=== PATIENT | male | born 1965 | race African-American/Black ===

== ENCOUNTER 2017-05-07 21:05 | Emergency (ER) | payer OTHER ==
[~2017-05-07] VITALS: Ht 167.6 cm; Wt 90.5 kg
[~2017-05-07 21:05] MED LIST: ALBU6.7H INH; DOXA4TAB3 PO; GABA300C5 PO; LANTUS2P SQ; METF500 PO; METO25TA3 PO; MULT1TAB84 PO; NOVORP2 SQ; OMEP20TA PO; PROM25TA5 PO; ZYRT10CA PO
[2017-05-07 21:10] VITALS: BP 142/82; PULSE 91; RESP 20; TEMP 98.5; O2SAT 100
--- NOTE | 2017-05-07 21:17 | PD ---
HPI Chief Complaint: cough, shortness of breath Time Seen by Provider: 21:13 Travel History International Travel<30 days: No Contact w/Intl Traveler<30days: No Traveled to known affect area: No History of Present Illness HPI This 51-year-old male says he been coughing off and on since yesterday. He has a history of allergic asthma. He also has a history of coronary artery disease and has had 5 bypasses done in the past. He said that since yesterday he felt well. While he was at [employer] yesterday he had an episode normal but slightly out of breath. This resolved on its own. Today he was feeling short of breath and was using his inhaler. PFSH Past Medical History Arthritis: Yes Asthma: Yes Autoimmune Disease: No Blood Disorders: No Anxiety: No Depression: No Heart Rhythm Problems: Yes (DIAG 1WK AGO W/BBB LT) Cancer: No Cardiac Catheterization: Yes Cardiovascular Problems: Yes (5 VESSELS CABG 2012) High Cholesterol: Yes Chemotherapy: No Chest Pain: Yes Congestive Heart Failure: No COPD: No Cerebrovascular Accident: No Coronary Artery Disease: Yes Diabetes: Yes (METFORMIN ) Diminished Hearing: No Endocrine: Yes Gastrointestinal Disorders: Yes (GERD) GERD: Yes Genitourinary: Yes (PROSTATE) Headaches: Yes Hepatitis: No Hiatal Hernia: No Heparin Induced Thrombocytopen: No Hypertension: Yes Immune Disorder: No Implanted Vascular Access Dvce: No Kidney Stones: No Musculoskeletal: No Neurologic: No Psychiatric: No Reproductive: No Respiratory: Yes (ASTHMA) Immunizations Current: Yes Migraines: No Myocardial Infarction: No Radiation Therapy: No Renal Failure: No Sickle Cell Disease: No Sleep Apnea: No Thyroid Disease: No Ulcer: Yes PNEUMOCCOCAL Vaccine (Year): 3 Past Surgical History Abdominal Surgery: No AICD: No Cardiac Surgery: Yes (BYPASS - APRIL 05, 2013) Coronary Artery Bypass Graft: Yes (X5 2012) Ear Surgery: No Endocrine Surgery: No Eye Surgery: No Genitourinary Surgery: Yes (PROSTATE PROBLEMS) Gynecologic Surgery: No Insulin Pump: No Joint Replacement: No Neurologic Surgery: No Oral Surgery: No ( ) Pacemaker: No Thoracic Surgery: No Other Surgery: Yes (bypass, prostate) Social History Alcohol Use: No Tobacco Use: No Substance Use: No Allergies-Medications (Allergen,Severity, Reaction): Coded Allergies: Dust (Verified Allergy, Mild, ITCH, SNEEZE, 6/22/17) Grass (Verified Allergy, Mild, ITCH, SNEEZE, 05/07/17) Reported Meds & Prescriptions Reported Meds & Active Scripts Active Omeprazole 20 Mg Tab 20 Mg PO DAILY Reported Cetirizine (Cetirizine HCl) 10 Mg Tab 10 Mg PO DAILY Glipizide 10 Mg Tab 10 Mg PO BIDAC Take 30 minutes before a meal Symbicort Inh (Budesonide/Formoterol Fumarate) 80-4.5 Mcg/Act Aero 1 Puff INH Q12HR Proventil Hfa 6.7 GM Inh (Albuterol Sulfate) 90 Mcg/Act Aer 2 Puff INH Q4H PRN Gabapentin 300 Mg Cap 300 Mg PO TID Doxazosin (Doxazosin Mesylate) 4 Mg Tab 4 Mg PO HS Lantus Inj (Insulin Glargine) 1,000 Unit/10 Ml Vial 30 Units SQ HS Metoprolol Tartrate 25 Mg Tab 25 Mg PO BID Review of Systems General / Constitutional: Positive: Fever Eyes: No: Diploplia, Blurred Vision HENT: No: Headaches, Vertigo Cardiovascular: No: Chest Pain or Discomfort, Palpitations Respiratory: Positive: Cough, Shortness of Breath Gastrointestinal: No: Vomiting Skin: No Rash, No Itching Neurologic: Positive: Weakness, No: Dizziness Endocrine: No: Cold Intolerance Hematologic/Lymphatic: No: Easy Bruising Physical Exam Narrative GENERAL: Well-developed male SKIN: Focused skin assessment warm/dry. HEAD: Atraumatic. Normocephalic. EYES: Pupils equal and round. No scleral icterus. No injection or drainage. ENT: No nasal bleeding or discharge. Mucous membranes pink and moist. NECK: Trachea midline. No JVD. CARDIOVASCULAR: Regular rate and rhythm. No murmur appreciated. Median sternotomy scar RESPIRATORY: No accessory muscle use. Clear to auscultation. Breath sounds equal bilaterally. GASTROINTESTINAL: Abdomen soft, non-tender, nondistended. Hepatic and splenic margins not palpable. MUSCULOSKELETAL: No obvious deformities. No clubbing. No cyanosis. No edema. NEUROLOGICAL: Awake and alert. No obvious cranial nerve deficits. Motor grossly within normal limits. Normal speech. PSYCHIATRIC: Appropriate mood and affect; insight and judgment normal. Data Data Last Documented VS Vital Signs Date Time Temp Pulse Resp B/P Pulse Ox O2 Delivery O2 Flow Rate FiO2 05/07/17 21:25 20 100 Room Air 05/07/17 21:10 98.5 91 142/82 Orders Electrocardiogram (05/07/17 21:14) Complete Blood Count With Diff (05/07/17 21:14) Comprehensive Metabolic Panel (05/07/17 21:14) Troponin I (05/07/17 21:14) B-Type Natriuretic Peptide (05/07/17 21:14) Chest, Single Ap (05/07/17 21:14) Labs Laboratory Tests Test 05/07/17 21:45 White Blood Count 6.6 TH/MM3 Red Blood Count 5.63 MIL/MM3 Hemoglobin 12.8 GM/DL Hematocrit 39.6 % Mean Corpuscular Volume 70.3 FL Mean Corpuscular Hemoglobin 22.7 PG Mean Corpuscular Hemoglobin 32.2 % Concent Red Cell Distribution Width 13.9 % Platelet Count 195 TH/MM3 Mean Platelet Volume 8.7 FL Neutrophils (%) (Auto) 56.5 % Lymphocytes (%) (Auto) 28.9 % Monocytes (%) (Auto) 8.7 % Eosinophils (%) (Auto) 2.9 % Basophils (%) (Auto) 3.0 % Neutrophils # (Auto) 3.7 TH/MM3 Lymphocytes # (Auto) 1.9 TH/MM3 Monocytes # (Auto) 0.6 TH/MM3 Eosinophils # (Auto) 0.2 TH/MM3 Basophils # (Auto) 0.2 TH/MM3 CBC Comment AUTO DIFF Sodium Level 141 MEQ/L Potassium Level 3.9 MEQ/L Chloride Level 106 MEQ/L Carbon Dioxide Level 26.1 MEQ/L Anion Gap 9 MEQ/L Blood Urea Nitrogen 17 MG/DL Creatinine 1.10 MG/DL Estimat Glomerular Filtration 85 ML/MIN Rate Random Glucose 227 MG/DL Calcium Level 8.3 MG/DL Total Bilirubin 0.4 MG/DL Aspartate Amino Transf 16 U/L (AST/SGOT) Alanine Aminotransferase 27 U/L (ALT/SGPT) Alkaline Phosphatase 68 U/L Troponin I 0.06 NG/ML B-Type Natriuretic Peptide 38 PG/ML Total Protein 7.2 GM/DL Albumin 3.6 GM/DL [facility] Medical Decision Making Medical Screen Exam Complete: Yes Emergency Medical Condition: Yes Medical Record Reviewed: Yes Differential Diagnosis Differential includes asthma, CHF, pneumonia Narrative Course Chest x-ray is negative for pneumonia and congestive failure. His BNP is normal. While in the ER he initially was having a cough but this has resolved. He has not had any honorio wheezing but I suspect his symptoms may be related to his asthma. He is feeling better and is stable for discharge. His troponin is 0.06 which is similar to previous values Diagnosis Primary Impression: Asthma, moderate persistent Scripts Doxazosin 4 Mg Tab4 Mg PO HS 30 Days Prov:Bean Limon MD 05/07/17 Metoprolol Tartrate 25 Mg Tab25 Mg PO BID 30 Days Ref 0 Prov:Bean Limon MD 05/07/17 Disposition: 01 DISCHARGE HOME Condition: Stable Bean Limon MD May 07, 2017 21:17
[2017-05-07] MEDS ORDERED: SYMB80AE INH (21:24)
[2017-05-07] MEDS ORDERED: GLIP10TA6 PO (21:24)
[2017-05-07] MEDS ORDERED: CETI10 PO (21:25)
[2017-05-07 21:51] LABS: AUTOMATED NEUTROPHIL # 3.7 TH/MM3 (1.8-7.7); BASOPHIL # 0.2 TH/MM3 (0-0.2); EOSINOPHIL # 0.2 TH/MM3 (0-0.4); EOSINOPHIL % 2.9 % (0.0-4.0); HEMATOCRIT 39.6 % (39.0-51.0); LYMPH % 28.9 % (9.0-44.0); LYMPHOCYTE # 1.9 TH/MM3 (1.0-4.8); MEAN CELL VOLUME 70.3 FL (80.0-100.0); MEAN CORPUSCULAR HEMOGLOBIN 22.7 PG (27.0-34.0); MEAN CORPUSCULAR HGB CONC 32.2 % (32.0-36.0); MONO % 8.7 % (0.0-8.0); NEUT % 56.5 % (16.0-70.0); PLATELET COUNT 195 TH/MM3 (150-450); RED BLOOD COUNT 5.63 MIL/MM3 (4.50-5.90); RED CELL DISTRIBUTION WIDTH 13.9 % (11.6-17.2); WHITE BLOOD COUNT 6.6 TH/MM3 (4.0-11.0)
--- NOTE | 2017-05-07 21:57 | RADRPT ---
EXAM DATE/TIME: 05/07/2017 21:50 [facility] COMPARISON: CHEST SINGLE AP, September 06, 2016, 15:05. INDICATIONS : Patient is short of breath and has chest pain since Thursday. MEDICAL HISTORY : None. SURGICAL HISTORY : CABG. ENCOUNTER: Initial ACUITY: 2 days PAIN SCORE: 3/10 LOCATION: Bilateral chest FINDINGS: A single view of the chest demonstrates the lungs to be symmetrically aerated without evidence of mas s, infiltrate or effusion. The cardiomediastinal contours are unremarkable. Osseous structures are intact. The patient is status post median sternotomy. CONCLUSION: No acute disease. Drake Burch MD on May 07, 2017 at 21:53 Board Certified Radiologist. This report was verified electronically.
[2017-05-07 22:02] LABS: CHLORIDE 106 MEQ/L (98-107); POTASSIUM 3.9 MEQ/L (3.5-5.1); SODIUM (NA) 141 MEQ/L (136-145)
[2017-05-07 22:06] LABS: ANION GAP 9 MEQ/L (5-15); BICARBONATE 26.1 MEQ/L (21.0-32.0); BLOOD UREA NITROGEN 17 MG/DL (7-18)
[2017-05-07 22:09] LABS: ALT (GPT) 27 U/L (12-78); AST (GOT) 16 U/L (15-37); GLOMERULAR FILTRATION RATE 85 ML/MIN (>89)
[2017-05-07 22:11] LABS: HEMO FLAGS AUTO DIFF; TOTAL BILIRUBIN ADULT 0.4 MG/DL (0.2-1.0)
[2017-05-07 22:12] LABS: ALKALINE PHOSPHATASE 68 U/L (45-117)
[2017-05-07] MEDS ORDERED: METO25TA3 PO (22:29)
[2017-05-07] MEDS ORDERED: DOXA4TAB3 PO (22:29)
[2017-05-07 22:32] LABS: OVALOCYTES 1+ (NORMAL); SCAN/DIFF AUTO DIFF CONFIRMED
[2017-05-07 22:40] VITALS: BP 147/72
--- NOTE | 2017-05-08 16:48 | EKG ---
Date Performed: 05/07/2017 Time Performed: 21:35:15 PTAGE: 51 years EKG: Sinus rhythm RIGHT BUNDLE BRANCH BLOCK ABNORMAL ECG PREVIOUS TRACING : 10/24/2016 22.31 Compared to prior tracing no significant change DOCTOR: Aracely Gasca Interpretating Date/Time 05/08/2017 16:46:29
== END 2017-05-07 22:44 | disposition home or self-care (01) ==
LOC: PHED 21:05
DX: J45.909 Unspecified asthma, uncomplicated (principal); I10 Essential (primary) hypertension; E78.00 Pure hypercholesterolemia, unspecified; K21.9 Gastro-esophageal reflux disease without esophagitis; Z95.1 Presence of aortocoronary bypass graft; J45.998 Other asthma
CPT/HCPCS: 71010; 80053; 83880; 84484; 85025; 93005; 99285

== ENCOUNTER 2017-09-27 03:17 | Emergency (ER) | payer OTHER ==
[~2017-09-27] VITALS: Ht 167.6 cm; Wt 88.0 kg
[~2017-09-27 03:17] MED LIST changes: +CETI10 PO; +GLIP10TA6 PO; -METF500 PO; -MULT1TAB84 PO; -NOVORP2 SQ; -OMEP20TA PO; +OMEP20TA93 PO; -PROM25TA5 PO; +SYMB80AE INH; -ZYRT10CA PO
[2017-09-27 03:19] VITALS: BP 134/81; PULSE 85; RESP 16; TEMP 98; O2SAT 100
[2017-09-27] MEDS ORDERED: SODIUM CHLORIDE 0.9% FLUSH 10 ML FLUSH IVF PRN (04:00)
[2017-09-27] MEDS ORDERED: ASPIRIN 81 MG CHEW TAB PO ONE (04:00)
--- NOTE | 2017-09-27 04:19 | PD ---
HPI Chief Complaint: Pain: Acute or Chronic Time Seen by Provider: 03:31 Travel History International Travel<30 days: No Contact w/Intl Traveler<30days: No Traveled to known affect area: No History of Present Illness HPI The 52-year-old man who presents to the emergency department complaining of some right sided abdominal pain that radiates up into the chest. Abdominal pains been going on for couple days. Chest pains been up and down for the past couple hours. No aggravating or alleviating factors. He says gallbladder out previously. He does have a history of GERD, he takes omeprazole twice a day. No shortness of breath. No other symptoms. He was seen multiple times last year for chest pain, had a stress test done in August of last year, exercise treadmill test, that was unremarkable. His a history of CABG in 2012. History Past Medical History Narrative Medical CAD, history of CABG 2012 Asthma Diabetes and hyperlipidemia Hypertension BPH GERD Neuropathy Tetanus Vaccination: < 5 Years Influenza Vaccination: No PNEUMOCCOCAL Vaccine (Year): 3 Social History Alcohol Use: No Tobacco Use: No Allergies-Medications (Allergen,Severity, Reaction): Coded Allergies: grass pollen (Unverified Allergy, Mild, ITCH, SNEEZE, 06/30/17) house dust (Unverified Allergy, Mild, ITCH, SNEEZE, 06/30/17) Reported Meds & Prescriptions Reported Meds & Active Scripts Active Doxazosin (Doxazosin Mesylate) 4 Mg Tab 4 Mg PO HS 30 Days Metoprolol Tartrate 25 Mg Tab 25 Mg PO BID 30 Days Omeprazole 20 Mg Tab 20 Mg PO DAILY Reported Cetirizine (Cetirizine HCl) 10 Mg Tab 10 Mg PO DAILY Glipizide 10 Mg Tab 10 Mg PO BIDAC Take 30 minutes before a meal Symbicort Inh (Budesonide/Formoterol Fumarate) 80-4.5 Mcg/Act Aero 1 Puff INH Q12HR Proventil Hfa 6.7 GM Inh (Albuterol Sulfate) 90 Mcg/Act Aer 2 Puff INH Q4H PRN Gabapentin 300 Mg Cap 300 Mg PO TID Lantus Inj (Insulin Glargine) 1,000 Unit/10 Ml Vial 30 Units SQ HS Review of Systems Except as stated in HPI: all other systems reviewed are Neg Physical Exam Narrative GENERAL: Well-appearing 52-year-old man, no acute distress. SKIN: Focused skin assessment warm/dry. HEAD: Atraumatic. Normocephalic. EYES: Pupils equal and round. No scleral icterus. No injection or drainage. ENT: No nasal bleeding or discharge. Mucous membranes pink and moist. NECK: Trachea midline. No JVD. CARDIOVASCULAR: Regular rate and rhythm. No murmur appreciated. RESPIRATORY: No accessory muscle use. Clear to auscultation. Breath sounds equal bilaterally. GASTROINTESTINAL: Abdomen soft, non-tender, nondistended. Hepatic and splenic margins not palpable. MUSCULOSKELETAL: No obvious deformities. No clubbing. No cyanosis. No edema. NEUROLOGICAL: Awake and alert. No obvious cranial nerve deficits. Motor grossly within normal limits. Normal speech. PSYCHIATRIC: Appropriate mood and affect; insight and judgment normal. Data Data Last Documented VS Vital Signs Date Time Temp Pulse Resp B/P (MAP) Pulse Ox O2 Delivery O2 Flow Rate FiO2 09/27/17 05:57 100 Room Air 09/27/17 05:56 74 18 137/67 (90) 09/27/17 03:19 98.0 Orders Orders Electrocardiogram (09/27/17 03:49) Complete Blood Count With Diff (09/27/17 03:49) Comprehensive Metabolic Panel (09/27/17 03:49) Magnesium (Mg) (09/27/17 03:49) Troponin I (09/27/17 03:49) Lipase (09/27/17 03:49) Chest, Single Ap (09/27/17 03:49) Ecg Monitoring (09/27/17 03:49) Iv Access Insert/Monitor (09/27/17 03:49) Oximetry (09/27/17 03:49) Oxygen Administration (09/27/17 03:49) Aspirin Chew (Aspirin Chew) (09/27/17 04:00) Sodium Chloride 0.9% Flush (Ns Flush) (09/27/17 04:00) Troponin I (09/27/17 05:28) Labs Laboratory Tests Test 09/27/17 03:55 09/27/17 05:55 White Blood Count 5.1 TH/MM3 Red Blood Count 5.90 MIL/MM3 Hemoglobin 13.8 GM/DL Hematocrit 42.9 % Mean Corpuscular Volume 72.8 FL Mean Corpuscular Hemoglobin 23.3 PG Mean Corpuscular Hemoglobin Concent 32.1 % Red Cell Distribution Width 15.4 % Platelet Count 182 TH/MM3 Mean Platelet Volume 9.0 FL Neutrophils (%) (Auto) 48.0 % Lymphocytes (%) (Auto) 38.7 % Monocytes (%) (Auto) 9.5 % Eosinophils (%) (Auto) 3.4 % Basophils (%) (Auto) 0.4 % Neutrophils # (Auto) 2.4 TH/MM3 Lymphocytes # (Auto) 2.0 TH/MM3 Monocytes # (Auto) 0.5 TH/MM3 Eosinophils # (Auto) 0.2 TH/MM3 Basophils # (Auto) 0.0 TH/MM3 CBC Comment DIFF FINAL Differential Comment Blood Urea Nitrogen 16 MG/DL Creatinine 1.11 MG/DL Random Glucose 378 MG/DL Total Protein 7.2 GM/DL Albumin 3.6 GM/DL Calcium Level 8.5 MG/DL Magnesium Level 2.0 MG/DL Alkaline Phosphatase 115 U/L Aspartate Amino Transf (AST/SGOT) 34 U/L Alanine Aminotransferase (ALT/SGPT) 34 U/L Total Bilirubin 0.4 MG/DL Sodium Level 136 MEQ/L Potassium Level 4.6 MEQ/L Chloride Level 101 MEQ/L Carbon Dioxide Level 26.2 MEQ/L Anion Gap 9 MEQ/L Estimat Glomerular Filtration Rate 84 ML/MIN Troponin I 0.05 NG/ML 0.05 NG/ML Lipase 90 U/L MDM Medical Decision Making Medical Screen Exam Complete: Yes Emergency Medical Condition: Yes Interpretation(s) My review of EKG: Normal sinus rhythm at a rate of 75, normal axis, right bundle branch block, no definite evidence of acute ischemia. LABS: CBC unremarkable. CMP remarkable for mildly elevated glucose Troponin negative 2 Lipase normal Differential Diagnosis ACS, gastritis, reflux, pancreatitis, other Narrative Course Medical decision making 52-year-old man, history of CAD, with abdominal and chest pain, benign exam, history is only minimally worrisome for heart problems. More likely gastritis or reflux. CT has a lot of trouble with this. Nonetheless with this history we 'll check 2 sets of enzymes, EKG, x-ray, close outpatient follow-up. Diagnosis Primary Impression: Atypical chest pain Additional Instructions: Continue omeprazole as prescribed. Follow-up with your primary doctor in the next 2-4 days. Return to the emergency department any worsening chest pain, trouble breathing, or any other new or worsening symptoms. Med/Other Pt SpecificInfo: Prescription(s) given Disposition: 01 DISCHARGE HOME Condition: Stable Quang Gutierrez MD Sep 27, 2017 04:19
[2017-09-27 04:26] LABS: AUTOMATED NEUTROPHIL # 2.4 TH/MM3 (1.8-7.7); BASOPHIL % 0.4 % (0.0-2.0); EOSINOPHIL # 0.2 TH/MM3 (0-0.4); EOSINOPHIL % 3.4 % (0.0-4.0); HEMATOCRIT 42.9 % (39.0-51.0); HEMO FLAGS DIFF FINAL; LYMPH % 38.7 % (9.0-44.0); MEAN CELL VOLUME 72.8 FL (80.0-100.0); MEAN CORPUSCULAR HEMOGLOBIN 23.3 PG (27.0-34.0); MEAN CORPUSCULAR HGB CONC 32.1 % (32.0-36.0); MONO % 9.5 % (0.0-8.0); PLATELET COUNT 182 TH/MM3 (150-450); RED CELL DISTRIBUTION WIDTH 15.4 % (11.6-17.2); WHITE BLOOD COUNT 5.1 TH/MM3 (4.0-11.0)
--- NOTE | 2017-09-27 04:33 | RADRPT ---
EXAM DATE/TIME: 09/27/2017 04:04 [facility] COMPARISON: CHEST SINGLE AP, May 07, 2017, 21:50. INDICATIONS : Chest pain. MEDICAL HISTORY : Diabetes mellitus type II. Gastroesophageal reflux disease. Asthma. SURGICAL HISTORY : CABG. Cholecystectomy. ENCOUNTER: Initial ACUITY: 1 day PAIN SCORE: 6/10 LOCATION: Left chest FINDINGS: The cardiac silhouette is normal in transverse diameter. Median sternotomy wires are present. The tonie gs are free of acute parenchymal opacity. No effusions are identified. CONCLUSION: 1. No acute cardiopulmonary disease. Darrick Whiteside MD on September 27, 2017 at 4:31 Board Certified Radiologist. This report was verified electronically.
[2017-09-27 04:36] LABS: ALKALINE PHOSPHATASE 115 U/L (45-117); ALT (GPT) 34 U/L (12-78); TOTAL BILIRUBIN ADULT 0.4 MG/DL (0.2-1.0)
[2017-09-27 04:38] LABS: ANION GAP 9 MEQ/L (5-15); AST (GOT) 34 U/L (15-37); BICARBONATE 26.2 MEQ/L (21.0-32.0); BLOOD UREA NITROGEN 16 MG/DL (7-18); CHLORIDE 101 MEQ/L (98-107); GLOMERULAR FILTRATION RATE 84 ML/MIN (>89); SODIUM (NA) 136 MEQ/L (136-145)
[2017-09-27 04:43] LABS: POTASSIUM 4.6 MEQ/L (3.5-5.1)
[2017-09-27 05:56] VITALS: BP 137/67; PULSE 74; RESP 18; O2SAT 100
--- NOTE | 2017-09-27 12:59 | EKG ---
Date Performed: 09/27/2017 Time Performed: 03:45:01 PTAGE: 52 years EKG: Sinus rhythm RIGHT BUNDLE BRANCH BLOCK ABNORMAL ECG PREVIOUS TRACING 05/07/17 Since previous tracing, no significant change. DOCTOR: Boy Garrett Interpretating Date/Time 09/27/2017 12:57:02
== END 2017-09-27 06:59 | disposition home or self-care (01) ==
LOC: NEPE 03:17
DX: R07.89 Other chest pain (principal); R94.31 Abnormal electrocardiogram [ECG] [EKG]; E78.5 Hyperlipidemia, unspecified; E11.9 Type 2 diabetes mellitus without complications; Z79.4 Long term (current) use of insulin
CPT/HCPCS: 71010; 80053; 83690; 83735; 84484; 85025; 93005

== ENCOUNTER 2018-03-20 00:13 | Emergency (ER) | payer OTHER ==
[2018-03-20] VITALS (9 sets, daily range): BP systolic 125–152; BP diastolic 69–87; PULSE 61–79; RESP 14–18; TEMP 97.6–98.1; O2SAT 97–99
[~2018-03-20] VITALS: Ht 167.6 cm; Wt 87.6 kg
--- NOTE | 2018-03-20 00:41 | PD ---
HPI Chief Complaint: accidental overdose Time Seen by Provider: 00:35 Travel History International Travel<30 days: No Contact w/Intl Traveler<30days: No Traveled to known affect area: No History of Present Illness HPI 52-year-old male with history of erectile dysfunction and diabetes presents to the emergency department for accidental medication injection. Patient thought he was injecting his evening dose of insulin but instead injected 0.4 cc of papaverine phentolamine 30mg/1mg/1 ml into the subcutaneous tissue of the abdominal wall. Patient states initially he noticed that there was discomfort upon injection with a burning sensation which he states he does not experience when he is injecting his insulin and then subsequently felt queasy like he was nauseated which has resolved and now notes some abdominal wall discomfort that he rates 5/10 in intensity. Patient denies any near syncope or syncope, denies chest pain palpitations or tachycardia, denies shortness of breath, denies referred neck jaw back shoulder arm pain. Did not take his evening insulin after accidental injection. Blood sugar in triage 161. Patient is unable to identify exacerbating or alleviating factors. Patient did call his pharmacist who called poison control and was encouraged to come to the emergency room for evaluation. Patient has history of diabetes diabetic neuropathy erectile dysfunction CAD with prior CABG and hypertension. FOR[facility]LY [facility], [facility] Past Medical History Narrative Medical Anxiety asthma bundle branch block dyslipidemia chest pain CAD CABG diabetes hypertension erectile dysfunction cholecystectomy; no tobacco use; nursing notes reviewed Arthritis: Yes Asthma: Yes Autoimmune Disease: No Blood Disorders: No Anxiety: No Depression: No Heart Rhythm Problems: Yes (DIAG 1WK AGO W/BBB LT) Cancer: No Cardiac Catheterization: Yes Cardiovascular Problems: Yes (5 VESSELS CABG 2012) High Cholesterol: Yes Chemotherapy: No Chest Pain: Yes Congestive Heart Failure: No COPD: No Cerebrovascular Accident: No Coronary Artery Disease: Yes Diabetes: Yes Diminished Hearing: No Endocrine: Yes Gastrointestinal Disorders: Yes (GERD) GERD: Yes Genitourinary: Yes (PROSTATE) Headaches: Yes Hepatitis: No Hiatal Hernia: No Heparin Induced Thrombocytopen: No Hypertension: Yes Immune Disorder: No Implanted Vascular Access Dvce: No Kidney Stones: No Musculoskeletal: No Neurologic: No Psychiatric: No Reproductive: No Respiratory: Yes (ASTHMA) Immunizations Current: Yes Migraines: No Myocardial Infarction: No Radiation Therapy: No Renal Failure: No Sickle Cell Disease: No Sleep Apnea: No Thyroid Disease: No Ulcer: Yes PNEUMOCCOCAL Vaccine (Year): 3 Past Surgical History Abdominal Surgery: No AICD: No Cardiac Surgery: Yes (BYPASS - APRIL 05, 2013) Cholecystectomy: Yes Coronary Artery Bypass Graft: Yes (X5 2012) Ear Surgery: No Endocrine Surgery: No Eye Surgery: No Genitourinary Surgery: Yes (PROSTATE PROBLEMS) Gynecologic Surgery: No Insulin Pump: No Joint Replacement: No Neurologic Surgery: No Pacemaker: No Thoracic Surgery: No Other Surgery: Yes (bypass, prostate) Social History Alcohol Use: No Tobacco Use: No Substance Use: No Allergies-Medications (Allergen,Severity, Reaction): Coded Allergies: grass pollen (Unverified Allergy, Mild, ITCH, SNEEZE, 06/30/17) house dust (Unverified Allergy, Mild, ITCH, SNEEZE, 06/30/17) Reported Meds & Prescriptions Reported Meds & Active Scripts Active Doxazosin (Doxazosin Mesylate) 4 Mg Tab 4 Mg PO HS 30 Days Reported Lantus Inj (Insulin Glargine) 1,000 Unit/10 Ml Vial 40 Units SQ HS Omeprazole 20 Mg Tab 20 Mg PO BID Glipizide 10 Mg Tab 10 Mg PO DAILY Take 30 minutes before a meal Glipizide 5 Mg Tab 5 Mg PO HS Take 30 minutes before a meal Gabapentin 300 Mg Cap 300 Mg PO HS Papaverine-Phentolamine M 30-1 mg/ml (Papaverine-Phentolamine) 30 Mg-1 Mg/Ml (1 Ml) Mae 0.1 Ml UR PRN Cetirizine (Cetirizine HCl) 10 Mg Tab 10 Mg PO DAILY Symbicort Inh (Budesonide/Formoterol Fumarate) 80-4.5 Mcg/Act Aero 1 Puff INH Q12HR Proventil Hfa 6.7 GM Inh (Albuterol Sulfate) 90 Mcg/Act Aer 2 Puff INH Q4H PRN Review of Systems Except as stated in HPI: all other systems reviewed are Neg General / Constitutional: No: Fever, Chills HENT: No: Congestion Cardiovascular: No: Chest Pain or Discomfort Respiratory: No: Shortness of Breath Gastrointestinal: Positive: Nausea, Abdominal Pain, No: Vomiting, Diarrhea Genitourinary: No: Dysuria, Flank Pain Musculoskeletal: No: Myalgias, Arthralgias Skin: No Rash Neurologic: No: Weakness Psychiatric: No: Anxiety Hematologic/Lymphatic: No: Lymph Node Enlargement Physical Exam Narrative GENERAL: Well-developed well-nourished male no acute distress no respiratory distress triage vital signs are in normal range no stridor or hoarseness SKIN: Warm and dry. No urticaria no rash HEAD: Normocephalic. EYES: No scleral icterus. No injection or drainage. ENT: Mucous membranes moist airways patent NECK: Supple, trachea midline. No JVD or lymphadenopathy. CARDIOVASCULAR: Regular rate and rhythm without murmurs, gallops, or rubs. RESPIRATORY: Breath sounds equal bilaterally. No accessory muscle use. GASTROINTESTINAL: Abdomen soft, non-tender, nondistended. Soft nontender to palpation no soft tissue swelling ecchymosis induration or erythema MUSCULOSKELETAL: No cyanosis, or edema. BACK: Nontender without obvious deformity. No CVA tenderness. Data Data Last Documented VS Vital Signs Date Time Temp Pulse Resp B/P (MAP) Pulse Ox O2 Delivery O2 Flow Rate FiO2 03/20/18 05:07 61 18 140/87 (104) 97 Room Air 03/20/18 00:15 97.6 Orders Orders Electrocardiogram (03/20/18 00:42) Complete Blood Count With Diff (03/20/18 00:42) Comprehensive Metabolic Panel (03/20/18 00:42) Prothrombin Time / Inr (Pt) (03/20/18 00:42) Act Partial Throm Time (Ptt) (03/20/18 00:42) Blood Glucose (03/20/18 00:42) Iv Access Insert/Monitor (03/20/18 00:42) Ecg Monitoring (03/20/18 00:42) Oximetry (03/20/18 00:42) Sodium Chloride 0.9% Flush (Ns Flush) (03/20/18 00:45) Call Poison Control (03/20/18 00:42) Troponin I (03/20/18 00:42) Troponin I (03/20/18 03:26) Labs Laboratory Tests Test 03/20/18 01:00 03/20/18 03:37 White Blood Count 5.6 TH/MM3 Red Blood Count 5.70 MIL/MM3 Hemoglobin 12.7 GM/DL Hematocrit 40.8 % Mean Corpuscular Volume 71.5 FL Mean Corpuscular Hemoglobin 22.3 PG Mean Corpuscular Hemoglobin Concent 31.1 % Red Cell Distribution Width 14.4 % Platelet Count 247 TH/MM3 Mean Platelet Volume 8.6 FL Neutrophils (%) (Auto) 44.4 % Lymphocytes (%) (Auto) 38.4 % Monocytes (%) (Auto) 12.4 % Eosinophils (%) (Auto) 4.3 % Basophils (%) (Auto) 0.5 % Neutrophils # (Auto) 2.5 TH/MM3 Lymphocytes # (Auto) 2.2 TH/MM3 Monocytes # (Auto) 0.7 TH/MM3 Eosinophils # (Auto) 0.2 TH/MM3 Basophils # (Auto) 0.0 TH/MM3 CBC Comment AUTO DIFF Differential Comment AUTO DIFF CONFIRMED Prothrombin Time 11.4 SEC Prothromb Time International Ratio 1.1 RATIO Activated Partial Thromboplast Time 28.5 SEC Blood Urea Nitrogen 14 MG/DL Creatinine 1.20 MG/DL Random Glucose 192 MG/DL Total Protein 6.8 GM/DL Albumin 3.3 GM/DL Calcium Level 8.4 MG/DL Alkaline Phosphatase 89 U/L Aspartate Amino Transf (AST/SGOT) 17 U/L Alanine Aminotransferase (ALT/SGPT) 37 U/L Total Bilirubin 0.2 MG/DL Sodium Level 140 MEQ/L Potassium Level 3.9 MEQ/L Chloride Level 108 MEQ/L Carbon Dioxide Level 26.3 MEQ/L Anion Gap 6 MEQ/L Estimat Glomerular Filtration Rate 76 ML/MIN Troponin I 0.04 NG/ML 0.04 NG/ML MDM Medical Decision Making Medical Screen Exam Complete: Yes Emergency Medical Condition: Yes Medical Record Reviewed: Yes Interpretation(s) EKG normal sinus rhythm rate 72 right bundle branch block no acute injury or ectopy noted; history of right bundle branch block Differential Diagnosis accidental overdose, arrhythmia Narrative Course Patient placed on production team manager with continuous pulse oximetry; IV access obtained; glucose 161. Poison control notified --- recommend 6 hours of observation for symptomatic intervention as needed @430 patient resting comfortably GCS 15 denies any discomfort complaints or pain ; aware will be observed for another 2 hours At 6:30 AM patient resting comfortably GCS remains 15 continues to deny any discomfort no nausea no vomiting no abdominal pain no chest pain no shortness of breath no flank pain patient's vital signs have remained stable; lab values are grossly normal range; EKG is sinus rhythm with right bundle branch block that has been noted previously. Patient is stable for outpatient management encouraged not to use his papaverine-phentolamine. Diagnosis Primary Impression: Accidental overdose Referrals: Primary Care Physician 2 days Patient Instructions: Narcotic given in the ED, General Instructions Additional Instructions: Increase fluid hydration Do not use this medication papaverine-phentolamine Follow-up with your primary care provider Monitor blood sugars closely Return to emergency department for any concerns or change in condition Med/Other Pt SpecificInfo: Prescription(s) given Disposition: 01 DISCHARGE HOME Collette Bhagat MD March 20, 2018 00:41
[2018-03-20] MEDS ORDERED: GABA300C5 PO (00:42)
[2018-03-20] MEDS ORDERED: OMEP20TA93 PO (00:42)
[2018-03-20] MEDS ORDERED: GLIP10TA6 PO (00:42)
[2018-03-20] MEDS ORDERED: LANTUS2P SQ (00:42)
[2018-03-20] MEDS ORDERED: [UNRECOGNIZED DRUG - CODE] UR (00:42)
[2018-03-20] MEDS ORDERED: GLIP5TAB8 PO (00:42)
[2018-03-20] MEDS ORDERED: SODIUM CHLORIDE 0.9% FLUSH 10 ML FLUSH IVF PRN (00:45)
[2018-03-20 01:21] LABS: AUTOMATED NEUTROPHIL # 2.5 TH/MM3 (1.8-7.7); BASOPHIL % 0.5 % (0.0-2.0); EOSINOPHIL # 0.2 TH/MM3 (0-0.4); EOSINOPHIL % 4.3 % (0.0-4.0); HEMATOCRIT 40.8 % (39.0-51.0); HEMOGLOBIN 12.7 GM/DL (13.0-17.0); LYMPH % 38.4 % (9.0-44.0); LYMPHOCYTE # 2.2 TH/MM3 (1.0-4.8); MEAN CELL VOLUME 71.5 FL (80.0-100.0); MEAN CORPUSCULAR HEMOGLOBIN 22.3 PG (27.0-34.0); MEAN CORPUSCULAR HGB CONC 31.1 % (32.0-36.0); MEAN PLATELET VOLUME 8.6 FL (7.0-11.0); MONO % 12.4 % (0.0-8.0); MONOCYTE # 0.7 TH/MM3 (0-0.9); NEUT % 44.4 % (16.0-70.0); PLATELET COUNT 247 TH/MM3 (150-450); RED CELL DISTRIBUTION WIDTH 14.4 % (11.6-17.2); WHITE BLOOD COUNT 5.6 TH/MM3 (4.0-11.0)
[2018-03-20 01:32] LABS: CHLORIDE 108 MEQ/L (98-107); SODIUM (NA) 140 MEQ/L (136-145)
[2018-03-20 01:35] LABS: ALBUMIN 3.3 GM/DL (3.4-5.0); BICARBONATE 26.3 MEQ/L (21.0-32.0); BLOOD UREA NITROGEN 14 MG/DL (7-18); CALCIUM 8.4 MG/DL (8.5-10.1); GLUCOSE,RANDOM 192 MG/DL (74-106)
[2018-03-20 01:38] LABS: ALT (GPT) 37 U/L (12-78); AST (GOT) 17 U/L (15-37); GLOMERULAR FILTRATION RATE 76 ML/MIN (>89)
[2018-03-20 01:40] LABS: TOTAL BILIRUBIN ADULT 0.2 MG/DL (0.2-1.0); TOTAL PROTEIN 6.8 GM/DL (6.4-8.2)
[2018-03-20 01:41] LABS: ALKALINE PHOSPHATASE 89 U/L (45-117)
[2018-03-20 01:43] LABS: TROPONIN I 0.04 NG/ML (0.02-0.05)
[2018-03-20 04:24] LABS: INTERNATIONAL NORMALIZED RATIO 1.1 RATIO; PROTHROMBIN TIME - PATIENT 11.4 SEC (9.8-11.6)
--- NOTE | 2018-03-20 13:52 | EKG ---
Date Performed: 03/20/2018 Time Performed: 01:06:36 PTAGE: 52 years EKG: Sinus rhythm RIGHT BUNDLE BRANCH BLOCK ABNORMAL ECG PREVIOUS TRACING : 09/27/2017 03.45 Since the previous tracing, no significant change noted DOCTOR: Jaxson Palomino Interpretating Date/Time 03/20/2018 13:51:03
== END 2018-03-20 07:01 | disposition home or self-care (01) ==
LOC: PHED 00:13
DX: T44.3X1A Poisoning by other parasympatholytics [anticholinergics and antimuscarinics] and spasmolytics, accidental (unintentional), initial encounter (principal); E11.40 Type 2 diabetes mellitus with diabetic neuropathy, unspecified; N52.9 Male erectile dysfunction, unspecified; R94.31 Abnormal electrocardiogram [ECG] [EKG]; E78.5 Hyperlipidemia, unspecified; I10 Essential (primary) hypertension; F41.9 Anxiety disorder, unspecified; J45.909 Unspecified asthma, uncomplicated; I25.10 Atherosclerotic heart disease of native coronary artery without angina pectoris
CPT/HCPCS: 80053; 84484; 85025; 85610; 85730; 93005

== ENCOUNTER 2018-04-16 19:52 | Emergency (ER) | payer OTHER ==
[~2018-04-16] VITALS: Ht 167.6 cm; Wt 86.3 kg
[~2018-04-16 19:52] MED LIST changes: +GLIP5TAB8 PO; -METO25TA3 PO; +[UNRECOGNIZED DRUG - CODE] UR
[2018-04-16 19:55] VITALS: BP 153/67; PULSE 90; RESP 18; TEMP 98.7; O2SAT 96
--- NOTE | 2018-04-16 20:57 | PD ---
HPI Chief Complaint: Skin Problem Time Seen by Provider: 20:34 Travel History International Travel<30 days: No Contact w/Intl Traveler<30days: No Traveled to known affect area: No History of Present Illness HPI Patient presents to the emergency department complaining of left great toe pain. States that he is a diabetic and hit his first toe on the left foot on a desk. States that it was black underneath the toenail and part of the toenail subsequently came off. Complaining of intermittent sharp left, first toe pain. States that he had bilateral lower extremity edema that resolved 2 days ago. He apparently was referred to financial professional for evaluation of his foot but he was not able to get an appointment for another month or so. He denies fever, chills , chest pain, vomiting, but reports nausea. Also reports some shortness of breath secondary to his asthma that has resolved with his inhaler use. Also complaining of numbness and tingling in his left toe. Is also reporting chronic , intermittent lower abdominal pain 2 years. Also reports diffuse lower back pain which she describes as "kidney pain" which resolved 3 hours ago. He denies recent trauma but reports an awkward feeling when he urinates but no dysuria. States it "feels funny when he urinates." Also denies increased urinary frequency but states that he feels like he is not able to fully empty his bladder. States that he has been out of his glipizide. PFSH Past Medical History Arthritis: Yes Asthma: Yes Autoimmune Disease: No Blood Disorders: No Anxiety: No Depression: No Heart Rhythm Problems: Yes (DIAG 1WK AGO W/BBB LT) Cancer: No Cardiac Catheterization: Yes Cardiovascular Problems: Yes (CABG) High Cholesterol: Yes Chemotherapy: No Chest Pain: Yes Congestive Heart Failure: No COPD: No Cerebrovascular Accident: No Coronary Artery Disease: Yes Diabetes: Yes (metformin) Diminished Hearing: No Endocrine: Yes Gastrointestinal Disorders: Yes (GERD) GERD: Yes Genitourinary: Yes (PROSTATE, ERECTILE DYS.) Headaches: Yes Hepatitis: No Hiatal Hernia: No Heparin Induced Thrombocytopen: No Hypertension: Yes Immune Disorder: No Implanted Vascular Access Dvce: No Kidney Stones: No Musculoskeletal: No Neurologic: No Psychiatric: No Reproductive: No Respiratory: Yes (Asthma) Immunizations Current: Yes Migraines: No Myocardial Infarction: No Radiation Therapy: No Renal Failure: No Sickle Cell Disease: No Sleep Apnea: No Thyroid Disease: No Ulcer: Yes PNEUMOCCOCAL Vaccine (Year): 3 Past Surgical History Abdominal Surgery: No AICD: No Cardiac Surgery: Yes (BYPASS - APRIL 05, 2013) Cholecystectomy: Yes Coronary Artery Bypass Graft: Yes (X2012) Ear Surgery: No Endocrine Surgery: No Eye Surgery: No Genitourinary Surgery: Yes (PROSTATE PROBLEMS) Gynecologic Surgery: No Insulin Pump: No Joint Replacement: No Neurologic Surgery: No Pacemaker: No Thoracic Surgery: No Other Surgery: Yes (bypass, prostate) Social History Alcohol Use: Yes (VERY RARE) Tobacco Use: No Substance Use: No Allergies-Medications (Allergen,Severity, Reaction): Coded Allergies: grass pollen (Unverified Allergy, Mild, ITCH, SNEEZE, 04/16/18) house dust (Unverified Allergy, Mild, ITCH, SNEEZE, 04/16/18) No Known Allergies (Verified Allergy, Unknown, 04/16/18) Reported Meds & Prescriptions Reported Meds & Active Scripts Active Glipizide 5 Mg Tab 5 Mg PO BIDAC 14 Days Take 10mg in the morning and 5mg at bedtime. Take 30 minutes before a meal Reported Atorvastatin (Atorvastatin Calcium) 20 Mg Tab 20 Mg PO DAILY Lantus Inj (Insulin Glargine) 1,000 Unit/10 Ml Vial 30 Units SQ HS Omeprazole 20 Mg Tab 20 Mg PO BID Glipizide 10 Mg Tab 10 Mg PO DAILY Take 30 minutes before a meal Glipizide 5 Mg Tab 5 Mg PO HS Take 30 minutes before a meal Gabapentin 300 Mg Cap 300 Mg PO HS Papaverine-Phentolamine M 30-1 mg/ml (Papaverine-Phentolamine) 30 Mg-1 Mg/Ml (1 Ml) Mae 0.1 Ml UR PRN Cetirizine (Cetirizine HCl) 10 Mg Tab 10 Mg PO DAILY Symbicort Inh (Budesonide/Formoterol Fumarate) 80-4.5 Mcg/Act Aero 1 Puff INH Q12HR Proventil Hfa 6.7 GM Inh (Albuterol Sulfate) 90 Mcg/Act Aer 2 Puff INH Q4H PRN Review of Systems Except as stated in HPI: all other systems reviewed are Neg Physical Exam Narrative GENERAL: No acute distress. SKIN: Focused skin assessment warm/dry. HEAD: Atraumatic. Normocephalic. EYES: Extraocular muscles intact bilaterally.. No scleral icterus. No injection or drainage. ENT: No nasal bleeding or discharge. Mucous membranes pink and moist. NECK: Trachea midline. No JVD. No focal C-spine tenderness. CARDIOVASCULAR: Regular rate and rhythm. No murmur appreciated. RESPIRATORY: No accessory muscle use. Clear to auscultation. Breath sounds equal bilaterally. GASTROINTESTINAL: Abdomen soft, suprapubic tenderness, nondistended. No CVA tenderness. Positive bilateral femoral, DP, PT pulses. MUSCULOSKELETAL: No clubbing. No cyanosis. No edema. No focal T or L-spine tenderness. Left foot: Sensation intact, cap refill less than 3 seconds, foot warm to touch, moves his toes, tenderness to palpation toenail of first toe, mild bruising of first toe NEUROLOGICAL: Awake and alert. No obvious cranial nerve deficits. Motor grossly within normal limits. Normal speech. PSYCHIATRIC: Appropriate mood and affect; insight and judgment normal. Data Data Last Documented VS Vital Signs Date Time Temp Pulse Resp B/P (MAP) Pulse Ox O2 Delivery O2 Flow Rate FiO2 04/16/18 22:00 76 16 135/74 (94) 98 Room Air 04/16/18 19:55 98.7 Orders Orders Complete Blood Count With Diff (04/16/18 20:50) Comprehensive Metabolic Panel (04/16/18 20:50) Foot, Complete ([id number]) (04/16/18 20:50) Urinalysis - C+S If Indicated (04/16/18 20:50) I-Stat Profile (04/16/18 20:50) Urine Culture (04/16/18 21:05) Sodium Chlor 0.9% 1000 Ml Inj (Ns 1000 M (04/16/18 22:45) I-Stat Profile (04/16/18 23:02) Blood Gas Venous (Vbg) (04/16/18 23:22) Labs Laboratory Tests Test 04/16/18 21:05 04/16/18 21:15 04/16/18 23:31 Urine Color YELLOW Urine Turbidity CLEAR Urine pH 5.5 Urine Specific [place] 1.015 Urine Protein NEG mg/dL Urine Glucose (UA) 1000 OR GREATER mg/dL Urine Ketones TRACE mg/dL Urine Occult Blood NEG Urine Nitrite NEG Urine Bilirubin NEG Urine Urobilinogen 0.2 MG/DL Urine Leukocyte Esterase NEG Urine RBC 0-3 /hpf Urine WBC 3-5 /hpf Urine WBC Clumps OCC Urine Squamous Epithelial Cells 0-5 /hpf Urine Bacteria RARE /hpf Urine Mucus FEW /lpf Microscopic Urinalysis Comment CULTURE INDICATED White Blood Count 6.8 TH/MM3 Red Blood Count 5.85 MIL/MM3 Hemoglobin 13.4 GM/DL Bedside Hemoglobin G/DL Hematocrit 42.2 % Bedside Hematocrit % Mean Corpuscular Volume 72.1 FL Mean Corpuscular Hemoglobin 22.8 PG Mean Corpuscular Hemoglobin Concent 31.7 % Red Cell Distribution Width 14.4 % Platelet Count 246 TH/MM3 Mean Platelet Volume 8.9 FL Neutrophils (%) (Auto) 56.4 % Lymphocytes (%) (Auto) 29.1 % Monocytes (%) (Auto) 9.0 % Eosinophils (%) (Auto) 2.3 % Basophils (%) (Auto) 3.2 % Neutrophils # (Auto) 3.8 TH/MM3 Lymphocytes # (Auto) 2.0 TH/MM3 Monocytes # (Auto) 0.6 TH/MM3 Eosinophils # (Auto) 0.2 TH/MM3 Basophils # (Auto) 0.2 TH/MM3 CBC Comment AUTO DIFF Differential Comment AUTO DIFF CONFIRMED Platelet Estimate NORMAL Platelet Morphology Comment NORMAL Bedside Sodium 137 MMOL/L Bedside Potassium 4.2 MMOL/L Bedside Chloride 100 MMOL/L Bedside Blood Urea Nitrogen 15 MG/DL Bedside Creatinine 0.9 MG/DL Bedside Glucose 373 MG/DL Blood Gas Puncture Site PERIPHERAL LINE Blood Gas Patient Temperature 98.6 Venous Blood pH 7.35 Venous Blood Partial Pressure CO2 48 mmHg Venous Blood Partial Pressure O2 42 mmHg Venous Blood HCO3 26 mmol/L Venous Blood Oxygen Saturation 71 % Venous Blood Oxygen Content 12.2 Vol % Venous Blood Base Excess 1.2 mmol/L Oxygen Delivery Device ROOM AIR Blood Gas Inspired Oxygen 21 % [facility] Medical Decision Making Medical Screen Exam Complete: Yes Emergency Medical Condition: Yes Interpretation(s) Labs: Lab system was down during the latter part of patient's visit. No evidence of DKA on available labs. Urine negative for nitrites and leukocyte esterase, but bacteria present. Urine culture pending. Last Impressions Foot X-Ray 04/16/182049 Signed Impressions: CONCLUSION: Negative exam. Differential Diagnosis Foot fracture, foot dislocation, musculoskeletal foot pain, UTI Narrative Course Patient presents to the emergency department complaining of left first toe pain , lower back pain which he describes as kidney pain, shortness of breath consistent with asthma that resolved with inhaler use. Will get a left foot x- ray and check baseline labs. 11:48: Patient blood sugar decreased to 1:49 liter IV fluids. Refill his glipizide as he is out that he takes 10 mg in the morning 5 mg at bedtime. He will also be referred to podiatry for follow-up. Will DC with Keflex 500 mg p.o. twice daily 7 days for symptomatic bacteriuria. Culture pending. Diagnosis Primary Impression: Hyperglycemia Additional Impressions: Toe pain, left Urinary tract infection Qualified Codes: N39.0 - Urinary tract infection, site not specified Referrals: Felipa Vinson DPM Patient Instructions: General Instructions Additional Instructions: 1. Take glipizide as previously prescribed. 2. Followup with Podiatry referral. 3. Followup with PCP in 48-72 hours. 4. Return to the ER for fever, vomiting, shortness of breath, chest pain, color changes in extremities, or for any new/ worrisome/worsening symptoms. Med/Other Pt SpecificInfo: Prescription(s) given Scripts Cephalexin (Keflex) 500 Mg Cap 500 MG PO Q12H for Infection for 7 Days, #14 CAP 0 Refills Prov: Corine Niño MD 04/16/18 Glipizide (Glipizide) 5 Mg Tab 5 MG PO BIDAC for Blood Sugar Management for 14 Days, #60 TAB 0 Refills Take 10mg in the morning and 5mg at bedtime. Take 30 minutes before a meal Prov: Corine Niño MD 04/16/18 Disposition: 01 DISCHARGE HOME Condition: Stable Corine Niño MD Apr 16, 2018 20:57
--- NOTE | 2018-04-16 21:14 | RADRPT ---
EXAM DATE: 04/16/2018 9:05 PM EDT AGE/SEX: 52 years / Male INDICATIONS: Left foot first digit pain. CLINICAL DATA: This is the patient's initial encounter. Patient reports that signs and symptoms have been present for 2 weeks and indicates a pain score of 5/10. MEDICAL/SURGICAL HISTORY: . Diabetes mellitus type II. Gastroesophageal reflux disease. Asthma . CABG. Cholecystectomy COMPARISON: No prior [facility] exams available for comparison. FINDINGS: Bony structures are intact and in normal alignment. Osseous density is normal. Soft tissues are unre markable. No radiopaque foreign bodies seen. CONCLUSION: Negative exam. Electronically signed by: Drake Burch MD 04/16/2018 9:12 PM EDT
[2018-04-16 21:36] LABS: BILIRUBIN, URINE NEG (NEG); BLOOD, URINE NEG (NEG); GLUCOSE,URINE 1000 OR GREATER mg/dL (NEG); KETONE, URINE TRACE mg/dL (NEG); NITRITE,URINE NEG (NEG); PH, URINE 5.5 (5.0-8.5); URINE COLOR YELLOW (YELLW/STRAW); URINE LEUKOCYTE ESTERASE NEG (NEG)
[2018-04-16 21:36] LABS: AUTOMATED NEUTROPHIL # 3.8 TH/MM3 (1.8-7.7); BASOPHIL # 0.2 TH/MM3 (0-0.2); BASOPHIL % 3.2 % (0.0-2.0); EOSINOPHIL # 0.2 TH/MM3 (0-0.4); EOSINOPHIL % 2.3 % (0.0-4.0); HEMATOCRIT 42.2 % (39.0-51.0); HEMOGLOBIN 13.4 GM/DL (13.0-17.0); LYMPH % 29.1 % (9.0-44.0); MEAN CELL VOLUME 72.1 FL (80.0-100.0); MEAN CORPUSCULAR HEMOGLOBIN 22.8 PG (27.0-34.0); MEAN CORPUSCULAR HGB CONC 31.7 % (32.0-36.0); MEAN PLATELET VOLUME 8.9 FL (7.0-11.0); MONOCYTE # 0.6 TH/MM3 (0-0.9); NEUT % 56.4 % (16.0-70.0); PLATELET COUNT 246 TH/MM3 (150-450); RED BLOOD COUNT 5.85 MIL/MM3 (4.50-5.90); RED CELL DISTRIBUTION WIDTH 14.4 % (11.6-17.2); WHITE BLOOD COUNT 6.8 TH/MM3 (4.0-11.0)
[2018-04-16] MEDS ORDERED: ATOR20TA15 PO (21:55)
[2018-04-16] MEDS ORDERED: LANTUS2P SQ (21:55)
[2018-04-16 21:58] LABS: MUCUS URINE FEW /lpf (OCC); WHITE BLOOD CELL CLUMPS OCC
[2018-04-16 21:59] LABS: RBC, URINE 0-3 /hpf (0-3); SQUAMOUS EPITHELIAL CELL URINE 0-5 /hpf (0-5)
[2018-04-16 22:00] VITALS: BP 135/74; PULSE 76; RESP 16; O2SAT 98
[2018-04-16 22:00] LABS: BACTERIA, URINE RARE /hpf
[2018-04-16] MEDS ORDERED: SODIUM CHLOR 0.9% 1000 ML INJ 1,000 ML IV ONE (22:45)
[2018-04-16] MEDS ORDERED: GLIP5TAB8 PO (23:46)
[2018-04-16] MEDS ORDERED: CEPH-460 PO (23:51)
[2018-04-16 23:57] LABS: ALBUMIN 3.5 GM/DL (3.4-5.0); AST (GOT) 14 U/L (15-37); BICARBONATE 21.3 MEQ/L (21.0-32.0); BLOOD UREA NITROGEN 14 MG/DL (7-18); CALCIUM 9.2 MG/DL (8.5-10.1); CHLORIDE 103 MEQ/L (98-107); CREATININE 1.14 MG/DL (0.60-1.30); GLOMERULAR FILTRATION RATE 81 ML/MIN (>89); GLUCOSE,RANDOM 368 MG/DL (74-106); SODIUM (NA) 137 MEQ/L (136-145)
[2018-04-16 23:58] LABS: ALT (GPT) 29 U/L (12-78)
[2018-04-17] VITALS: BP 145/79; PULSE 76; RESP 16; O2SAT 98
[2018-04-17] LABS: ALKALINE PHOSPHATASE 89 U/L (45-117); TOTAL BILIRUBIN ADULT 0.3 MG/DL (0.2-1.0); TOTAL PROTEIN 7.3 GM/DL (6.4-8.2)
== END 2018-04-17 00:13 | disposition home or self-care (01) ==
LOC: PHED 19:52
DX: E11.65 Type 2 diabetes mellitus with hyperglycemia (principal); M79.675 Pain in left toe(s); N39.0 Urinary tract infection, site not specified; E78.00 Pure hypercholesterolemia, unspecified; I10 Essential (primary) hypertension; I25.10 Atherosclerotic heart disease of native coronary artery without angina pectoris; J45.909 Unspecified asthma, uncomplicated; K21.9 Gastro-esophageal reflux disease without esophagitis; Z95.1 Presence of aortocoronary bypass graft
CPT/HCPCS: 73630; 80053; 81001; 82805; 85025; 87086; 96360; 99284; J7030; 80048

== ENCOUNTER 2018-05-03 19:10 | Inpatient (IN) | payer SELFPAY ==
[~2018-05-03] VITALS: Ht 167.6 cm; Wt 79.3 kg
[~2018-05-03 19:10] MED LIST changes: +ATOR20TA15 PO; +CEPH-460 PO; -DOXA4TAB3 PO
[2018-05-03 19:34] VITALS: BP 131/75; PULSE 84; RESP 16; TEMP 98.6; O2SAT 99
[2018-05-03] MEDS ORDERED: SODIUM CHLORIDE 0.9% FLUSH 10 ML FLUSH IVF PRN (20:15)
[2018-05-03 20:21] LABS: AUTOMATED NEUTROPHIL # 2.9 TH/MM3 (1.8-7.7); BASOPHIL % 0.7 % (0.0-2.0); EOSINOPHIL # 0.2 TH/MM3 (0-0.4); EOSINOPHIL % 3.4 % (0.0-4.0); HEMATOCRIT 40.8 % (39.0-51.0); HEMOGLOBIN 13.4 GM/DL (13.0-17.0); LYMPH % 34.2 % (9.0-44.0); LYMPHOCYTE # 1.9 TH/MM3 (1.0-4.8); MEAN CELL VOLUME 71.2 FL (80.0-100.0); MEAN CORPUSCULAR HEMOGLOBIN 23.4 PG (27.0-34.0); MEAN CORPUSCULAR HGB CONC 32.8 % (32.0-36.0); MEAN PLATELET VOLUME 8.3 FL (7.0-11.0); MONO % 10.6 % (0.0-8.0); MONOCYTE # 0.6 TH/MM3 (0-0.9); NEUT % 51.1 % (16.0-70.0); PLATELET COUNT 187 TH/MM3 (150-450); RED BLOOD COUNT 5.74 MIL/MM3 (4.50-5.90); RED CELL DISTRIBUTION WIDTH 15.4 % (11.6-17.2); WHITE BLOOD COUNT 5.6 TH/MM3 (4.0-11.0)
--- NOTE | 2018-05-03 20:21 | RADRPT ---
EXAM DATE: 05/03/2018 8:18 PM EDT AGE/SEX: 52 years / Male INDICATIONS: Chest pain. CLINICAL DATA: This is the patient's initial encounter. Patient reports that signs and symptoms have been present for 2 days and indicates a pain score of 7/10. MEDICAL/SURGICAL HISTORY: . Diabetes mellitus type II. Gastroesophageal reflux disease. Asthma . CABG. Cholecystectomy COMPARISON: [facility] [place], CHEST SINGLE AP, 09/27/2017. . FINDINGS: A single AP view of the chest demonstrates the lungs to be symmetrically aerated without evidence of mass, infiltrate or effusion. The cardiomediastinal contours are unremarkable. Osseous structures a re intact. CONCLUSION: No active disease. Postoperative median sternotomy. Electronically signed by: Mark Greenberg MD 05/03/2018 8:19 PM EDT
[2018-05-03 20:32] LABS: PROTHROMBIN TIME - PATIENT 10.5 SEC (9.8-11.6)
--- NOTE | 2018-05-03 20:53 | PD ---
HPI Chief Complaint: Chest Pain Time Seen by Provider: 20:04 Travel History International Travel<30 days: No Contact w/Intl Traveler<30days: No Traveled to known affect area: No History of Present Illness HPI Patient is a 52-year-old male presenting to emerge from for evaluation of chest pain. Patient states it started a few days ago. The pain increased in intensity today which is what prompted his presentation. He states it is midsternal with radiation to the left arm, he reports mild shortness of breath, he does state that he gets short of breath with exertion. He denies any diaphoresis, headache. Patient denies previous heart attack but has had a CABG in 2013. He states that he has lower quadrant abdominal pain, this is ongoing for 1 month. He states that his primary doctor gave him medication to take 4 times a day, he is unsure what that medication is. He does state that he is not metoprolol for several weeks. He took 1 baby aspirin this morning. PFSH Past Medical History Arthritis: Yes Asthma: Yes Heart Rhythm Problems: Yes (BBB LT) Cardiac Catheterization: Yes Cardiovascular Problems: Yes (CABG) High Cholesterol: Yes Chest Pain: Yes Coronary Artery Disease: Yes Diabetes: Yes GERD: Yes Genitourinary: Yes (PROSTATE, ERECTILE DYS.) Headaches: Yes Hypertension: Yes Immunizations Current: Yes Ulcer: Yes PNEUMOCCOCAL Vaccine (Year): 3 Past Surgical History Abdominal Surgery: No AICD: No Cardiac Surgery: Yes (BYPASS - APRIL 05, 2013) Cholecystectomy: Yes Coronary Artery Bypass Graft: Yes (X5 2012) Ear Surgery: No Endocrine Surgery: No Eye Surgery: No Genitourinary Surgery: Yes (PROSTATE PROBLEMS) Gynecologic Surgery: No Insulin Pump: No Joint Replacement: No Neurologic Surgery: No Pacemaker: No Thoracic Surgery: No Other Surgery: Yes (bypass, prostate) Social History Alcohol Use: Yes (VERY RARE) Tobacco Use: No Substance Use: No Allergies-Medications (Allergen,Severity, Reaction): Coded Allergies: grass pollen (Unverified Allergy, Mild, ITCH, SNEEZE, 05/03/18) house dust (Unverified Allergy, Mild, ITCH, SNEEZE, 05/03/18) Reported Meds & Prescriptions Reported Meds & Active Scripts Active Keflex (Cephalexin) 500 Mg Cap 500 Mg PO Q12H 7 Days Glipizide 5 Mg Tab 5 Mg PO BIDAC 14 Days Take 10mg in the morning and 5mg at bedtime. Take 30 minutes before a meal Reported Atorvastatin (Atorvastatin Calcium) 20 Mg Tab 20 Mg PO DAILY Lantus Inj (Insulin Glargine) 1,000 Unit/10 Ml Vial 30 Units SQ HS Omeprazole 20 Mg Tab 20 Mg PO BID Glipizide 10 Mg Tab 10 Mg PO DAILY Take 30 minutes before a meal Glipizide 5 Mg Tab 5 Mg PO HS Take 30 minutes before a meal Gabapentin 300 Mg Cap 300 Mg PO HS Papaverine-Phentolamine M 30-1 mg/ml (Papaverine-Phentolamine) 30 Mg-1 Mg/Ml (1 Ml) Mae 0.1 Ml UR PRN Cetirizine (Cetirizine HCl) 10 Mg Tab 10 Mg PO DAILY Symbicort Inh (Budesonide/Formoterol Fumarate) 80-4.5 Mcg/Act Aero 1 Puff INH Q12HR Proventil Hfa 6.7 GM Inh (Albuterol Sulfate) 90 Mcg/Act Aer 2 Puff INH Q4H PRN Review of Systems Except as stated in HPI: all other systems reviewed are Neg Cardiovascular: Positive: Chest Pain or Discomfort, Diaphoresis, Dyspnea on exertion Respiratory: Positive: Shortness of Breath Gastrointestinal: Positive: Nausea, Abdominal Pain, No: Vomiting, Diarrhea Genitourinary: No: Dysuria Neurologic: Positive: Dizziness, No: Weakness, Syncope, Focal Abnormalities Physical Exam Narrative GENERAL: Well-developed, well-nourished, alert -[place] male. Presenting in no acute distress. SKIN: Warm and dry. HEAD: Atraumatic. Normocephalic. EYES: Pupils equal and round. No scleral icterus. No injection or drainage. ENT: No nasal bleeding or discharge. Mucous membranes pink and moist. NECK: Trachea midline. No JVD. CARDIOVASCULAR: Regular rate and rhythm. RESPIRATORY: No accessory muscle use. Clear to auscultation. Breath sounds equal bilaterally. GASTROINTESTINAL: Abdomen soft, mildly tender bilateral lower quadrants, nondistended. Hepatic and splenic margins not palpable. No rebound, no guarding , positive bowel sounds. MUSCULOSKELETAL: Extremities without clubbing, cyanosis, or edema. No obvious deformities. NEUROLOGICAL: Awake and alert. No obvious cranial nerve deficits. Motor grossly within normal limits. Five out of 5 muscle strength in the arms and legs. Normal speech. PSYCHIATRIC: Appropriate mood and affect; insight and judgment normal. Data Data Last Documented VS Vital Signs Date Time Temp Pulse Resp B/P (MAP) Pulse Ox O2 Delivery O2 Flow Rate FiO2 05/03/18 19:34 98.6 84 16 131/75 (93) 99 Orders Orders Electrocardiogram (05/03/18 20:02) Ckmb (Isoenzyme) Profile (05/03/18 20:02) Complete Blood Count With Diff (05/03/18 20:) Comprehensive Metabolic Panel (05/03/18 20:) Magnesium (Mg) (05/03/18 20:) Prothrombin Time / Inr (Pt) (05/03/18:) Act Partial Throm Time (Ptt) (05/03/18:) Troponin I (05/03/18:) Lipase (05/03/18 20:) Chest, Single Ap (05/03/18 20:) Ecg Monitoring (05/03/18 20:) Bilateral Bp Monitoring (05/03/18:) Iv Access Insert/Monitor (05/03/18 20:) Oximetry (05/03/18 20:) Oxygen Administration (05/03/18 20:02) Sodium Chloride 0.9% Flush (Ns Flush) (05/03/18 20:15) Ct Abd/Pel W Iv Contrast(Rout) (05/03/18 ) CKMB (05/03/18 20:00) CKMB% (05/03/18 20:00) Urinalysis - C+S If Indicated (05/03/18 21:18) Admit Order (Ed Use Only) (05/03/18 22:33) Activity Bed Rest With Brp (05/03/18 22:33) Vital Signs (Adult) Q4H (05/03/18 22:33) Cardiac Rhythm .As Directed (05/03/18:33) Notify Dr: Other .PRN (05/03/18:33) Notify Parameters (05/03/18 22:33) Diet Npo (05/04/18 Breakfast) ^ Saline Lock (05/03/18 22:33) Ckmb (Isoenzyme) Profile (05/03/18:33) Ckmb (Isoenzyme) Profile (05/04/18 01:33) Troponin I (05/03/18 22:33) Troponin I (05/04/18 01:33) Electrocardiogram (05/03/18:33) Electrocardiogram (05/04/18:33) ^ Obtain (05/03/18:33) Sodium Chloride 0.9% Flush (Ns Flush) (05/03/18 22:45) Sodium Chloride 0.9% Flush (Ns Flush) (05/04/18 09:00) Acetaminophen (Tylenol) (05/03/18 22:45) Morphine Inj (Morphine Inj) (05/03/18 22:45) Nitroglycerin Sl (Nitrostat Sl) (05/03/18 22:45) Aspirin (Aspirin) (05/04/18 09:00) Temazepam (Restoril) (05/03/18 22:45) Receiving Room Clerk / Telemetry [email or web address] (05/03/18:33) Vte Prophylaxis Not Indicated (05/03/18:) Labs Laboratory Tests Test 05/03/18 20:00 White Blood Count 5.6 TH/MM3 Red Blood Count 5.74 MIL/MM3 Hemoglobin 13.4 GM/DL Hematocrit 40.8 % Mean Corpuscular Volume 71.2 FL Mean Corpuscular Hemoglobin 23.4 PG Mean Corpuscular Hemoglobin Concent 32.8 % Red Cell Distribution Width 15.4 % Platelet Count 187 TH/MM3 Mean Platelet Volume 8.3 FL Neutrophils (%) (Auto) 51.1 % Lymphocytes (%) (Auto) 34.2 % Monocytes (%) (Auto) 10.6 % Eosinophils (%) (Auto) 3.4 % Basophils (%) (Auto) 0.7 % Neutrophils # (Auto) 2.9 TH/MM3 Lymphocytes # (Auto) 1.9 TH/MM3 Monocytes # (Auto) 0.6 TH/MM3 Eosinophils # (Auto) 0.2 TH/MM3 Basophils # (Auto) 0.0 TH/MM3 CBC Comment DIFF FINAL Differential Comment Prothrombin Time 10.5 SEC Prothromb Time International Ratio 1.0 RATIO Activated Partial Thromboplast Time 26.9 SEC Blood Urea Nitrogen 15 MG/DL Creatinine 1.09 MG/DL Random Glucose 228 MG/DL Total Protein 7.4 GM/DL Albumin 3.8 GM/DL Calcium Level 9.0 MG/DL Magnesium Level 1.8 MG/DL Alkaline Phosphatase 104 U/L Aspartate Amino Transf (AST/SGOT) 12 U/L Alanine Aminotransferase (ALT/SGPT) 25 U/L Total Bilirubin 0.3 MG/DL Sodium Level 139 MEQ/L Potassium Level 3.5 MEQ/L Chloride Level 104 MEQ/L Carbon Dioxide Level 24.7 MEQ/L Anion Gap 10 MEQ/L Estimat Glomerular Filtration Rate 85 ML/MIN Total Creatine Kinase 214 U/L Creatine Kinase MB 2.9 NG/ML Troponin I 0.05 NG/ML Lipase 84 U/L [facility] Medical Decision Making Medical Screen Exam Complete: Yes Emergency Medical Condition: Yes Interpretation(s) Last Impressions Chest X-Ray 05/03/182001 Signed Impressions: CONCLUSION: No active disease. Postoperative median sternotomy. Abdomen/Pelvis CT 05/03/18 0000 Signed Impressions: CONCLUSION: 1. No acute findings. Mild constipation. Mild fatty liver. Laboratory Tests Test 05/03/18 20:00 White Blood Count 5.6 TH/MM3 Red Blood Count 5.74 MIL/MM3 Hemoglobin 13.4 GM/DL Hematocrit 40.8 % Mean Corpuscular Volume 71.2 FL Mean Corpuscular Hemoglobin 23.4 PG Mean Corpuscular Hemoglobin Concent 32.8 % Red Cell Distribution Width 15.4 % Platelet Count 187 TH/MM3 Mean Platelet Volume 8.3 FL Neutrophils (%) (Auto) 51.1 % Lymphocytes (%) (Auto) 34.2 % Monocytes (%) (Auto) 10.6 % Eosinophils (%) (Auto) 3.4 % Basophils (%) (Auto) 0.7 % Neutrophils # (Auto) 2.9 TH/MM3 Lymphocytes # (Auto) 1.9 TH/MM3 Monocytes # (Auto) 0.6 TH/MM3 Eosinophils # (Auto) 0.2 TH/MM3 Basophils # (Auto) 0.0 TH/MM3 CBC Comment DIFF FINAL Differential Comment Prothrombin Time 10.5 SEC Prothromb Time International Ratio 1.0 RATIO Activated Partial Thromboplast Time 26.9 SEC Blood Urea Nitrogen 15 MG/DL Creatinine 1.09 MG/DL Random Glucose 228 MG/DL Total Protein 7.4 GM/DL Albumin 3.8 GM/DL Calcium Level 9.0 MG/DL Magnesium Level 1.8 MG/DL Alkaline Phosphatase 104 U/L Aspartate Amino Transf (AST/SGOT) 12 U/L Alanine Aminotransferase (ALT/SGPT) 25 U/L Total Bilirubin 0.3 MG/DL Sodium Level 139 MEQ/L Potassium Level 3.5 MEQ/L Chloride Level 104 MEQ/L Carbon Dioxide Level 24.7 MEQ/L Anion Gap 10 MEQ/L Estimat Glomerular Filtration Rate 85 ML/MIN Total Creatine Kinase 214 U/L Creatine Kinase MB 2.9 NG/ML Troponin I 0.05 NG/ML Lipase 84 U/L Vital Signs Date Time Temp Pulse Resp B/P (MAP) Pulse Ox O2 Delivery O2 Flow Rate FiO2 05/03/18 19:34 98.6 84 16 131/75 (93) 99 Differential Diagnosis ACS versus [place] versus GERD versus diverticulitis versus colitis versus metabolic abnormality versus other Narrative Course Patient is 52-year-old male who presented to emerge from for evaluation of chest pain. Additionally patient had lower abdominal pain. Labs and imaging ordered and pending. Patient's vital signs are stable. Patient was placed on telemetry monitoring continuous pulse oximetry. IV access was established. Chest x-ray shows no acute disease. CT scan of the abdomen and pelvis shows mild constipation. Labs reviewed, no acute findings identified. Cardiac enzymes are negative 1 set. Plan of care was discussed by attending physician. Patient was advised on findings. He was advised that we would like placement in the chest pain center overnight. Patient is agreeable to stay. Admit orders placed. Diagnosis Primary Impression: Chest pain Qualified Codes: R07.9 - Chest pain, unspecified Additional Impression: Constipation Qualified Codes: K59.00 - Constipation, unspecified Admitting Information Admitting Physician Requests: Observation Condition: Stable Binta Ronquillo May 03, 2018 20:53
[2018-05-03 21:12] LABS: ALBUMIN 3.8 GM/DL (3.4-5.0); AST (GOT) 12 U/L (15-37); BICARBONATE 24.7 MEQ/L (21.0-32.0); BLOOD UREA NITROGEN 15 MG/DL (7-18); CHLORIDE 104 MEQ/L (98-107); CREATININE 1.09 MG/DL (0.60-1.30); GLOMERULAR FILTRATION RATE 85 ML/MIN (>89); GLUCOSE,RANDOM 228 MG/DL (74-106); MAGNESIUM 1.8 MG/DL (1.5-2.5); SODIUM (NA) 139 MEQ/L (136-145)
[2018-05-03 21:13] LABS: ALT (GPT) 25 U/L (12-78)
[2018-05-03 21:17] LABS: ALKALINE PHOSPHATASE 104 U/L (45-117); TOTAL BILIRUBIN ADULT 0.3 MG/DL (0.2-1.0); TOTAL PROTEIN 7.4 GM/DL (6.4-8.2); TROPONIN I 0.05 NG/ML (0.02-0.05)
--- NOTE | 2018-05-03 21:18 | PD ---
Physical Exam Narrative I, Dr. Mccarty, have reviewed the advance practice practitioner's documentation and am in agreement, met with the patient face to face, made the diagnosis, and the medical decision making was done by me. *My assessment and Findings: Patient is a 52-year-old male who comes in complaining of chest pain and abdominal pain. Says he has been having these symptoms for a while, but today he was mowing his lawn on the chest pain came on. He says it was worse today than it has been in the past. He also complains of some lower abdominal pain. Exam shows some mild tenderness across the lower abdomen. No rebound or guarding. Data Data Last Documented VS Vital Signs Date Time Temp Pulse Resp B/P (MAP) Pulse Ox O2 Delivery O2 Flow Rate FiO2 05/03/18 19:34 98.6 84 16 131/75 (93) 99 Orders Orders Electrocardiogram (05/03/18 20:02) Ckmb (Isoenzyme) Profile (05/03/18 20:02) Complete Blood Count With Diff (05/03/18 20:02) Comprehensive Metabolic Panel (05/03/18 20:02) Magnesium (Mg) (05/03/18 20:02) Prothrombin Time / Inr (Pt) (05/03/18 20:02) Act Partial Throm Time (Ptt) (05/03/18 20:02) Troponin I (05/03/18 20:02) Lipase (05/03/18 20:02) Chest, Single Ap (05/03/18 20:02) Ecg Monitoring (05/03/18 20:02) Bilateral Bp Monitoring (05/03/18 20:02) Iv Access Insert/Monitor (05/03/18 20:02) Oximetry (05/03/18 20:02) Oxygen Administration (05/03/18 20:02) Sodium Chloride 0.9% Flush (Ns Flush) (05/03/18 20:15) Ct Abd/Pel W Iv Contrast(Rout) (05/03/18 ) CKMB (05/03/18 20:00) CKMB% (05/03/18 20:00) Urinalysis - C+S If Indicated (05/03/18 21:18) Admit Order (Ed Use Only) (05/03/18 22:33) Activity Bed Rest With Brp (05/03/18:33) Vital Signs (Adult) Q4H (05/03/18:33) Cardiac Rhythm .As Directed (05/03/18) Notify Dr: Other .PRN (05/03/18) Notify DrNain Parameters (05/03/18:) Diet Npo (05/04/18 Breakfast) ^ Saline Lock (05/03/18:) Ckmb (Isoenzyme) Profile (05/03/18) Ckmb (Isoenzyme) Profile (05/04/18:33) Troponin I (05/03/18:) Troponin I (05/04/18:33) Electrocardiogram (05/03/18) Electrocardiogram (05/04/18:) ^ Obtain (05/03/18:) Sodium Chloride 0.9% Flush (Ns Flush) (05/03/18 22:45) Sodium Chloride 0.9% Flush (Ns Flush) (05/04/18 09:00) Acetaminophen (Tylenol) (05/03/18 22:45) Morphine Inj (Morphine Inj) (05/03/18 22:45) Nitroglycerin Sl (Nitrostat Sl) (05/03/18 22:45) Aspirin (Aspirin) (05/04/18 09:00) Temazepam (Restoril) (05/03/18 22:45) Speech Communication Professor / Telemetry [email or web address].[email or web address] (05/03/18:33) Vte Prophylaxis Not Indicated (05/03/18:33) CKMB (05/04/18 00:22) CKMB% (05/04/18 00:22) Labs Laboratory Tests Test 05/03/18 20:00 05/03/18 22:30 White Blood Count 5.6 TH/MM3 Red Blood Count 5.74 MIL/MM3 Hemoglobin 13.4 GM/DL Hematocrit 40.8 % Mean Corpuscular Volume 71.2 FL Mean Corpuscular Hemoglobin 23.4 PG Mean Corpuscular Hemoglobin Concent 32.8 % Red Cell Distribution Width 15.4 % Platelet Count 187 TH/MM3 Mean Platelet Volume 8.3 FL Neutrophils (%) (Auto) 51.1 % Lymphocytes (%) (Auto) 34.2 % Monocytes (%) (Auto) 10.6 % Eosinophils (%) (Auto) 3.4 % Basophils (%) (Auto) 0.7 % Neutrophils # (Auto) 2.9 TH/MM3 Lymphocytes # (Auto) 1.9 TH/MM3 Monocytes # (Auto) 0.6 TH/MM3 Eosinophils # (Auto) 0.2 TH/MM3 Basophils # (Auto) 0.0 TH/MM3 CBC Comment DIFF FINAL Differential Comment Prothrombin Time 10.5 SEC Prothromb Time International Ratio 1.0 RATIO Activated Partial Thromboplast Time 26.9 SEC Blood Urea Nitrogen 15 MG/DL Creatinine 1.09 MG/DL Random Glucose 228 MG/DL Total Protein 7.4 GM/DL Albumin 3.8 GM/DL Calcium Level 9.0 MG/DL Magnesium Level 1.8 MG/DL Alkaline Phosphatase 104 U/L Aspartate Amino Transf (AST/SGOT) 12 U/L Alanine Aminotransferase (ALT/SGPT) 25 U/L Total Bilirubin 0.3 MG/DL Sodium Level 139 MEQ/L Potassium Level 3.5 MEQ/L Chloride Level 104 MEQ/L Carbon Dioxide Level 24.7 MEQ/L Anion Gap 10 MEQ/L Estimat Glomerular Filtration Rate 85 ML/MIN Total Creatine Kinase 214 U/L Creatine Kinase MB 2.9 NG/ML Troponin I 0.05 NG/ML Lipase 84 U/L Urine Color Straw Urine Turbidity CLEAR Urine pH 6.0 Urine Specific [place] 1.023 Urine Protein NEG mg/dL Urine Glucose (UA) >=500 mg/dL Urine Ketones TRACE mg/dL Urine Occult Blood NEG Urine Nitrite NEG Urine Bilirubin NEG Urine Urobilinogen LESS THAN 2 mg/dL Urine Leukocyte Esterase NEG Urine RBC LESS THAN 1 /hpf Urine WBC 1 /hpf Microscopic Urinalysis Comment CULT NOT INDICATED [facility] Supervised Visit with [facility]: Yes Narrative Course Labs show no acute abnormalities. Troponin is negative. CT of the abdomen and pelvis performed shows no acute abnormalities. Patient will be placed in chest pain center for further management. Last 24 hours Impressions Chest X-Ray 05/03/182001 Signed Impressions: CONCLUSION: No active disease. Postoperative median sternotomy. Abdomen/Pelvis CT 05/03/18 0000 Signed Impressions: CONCLUSION: 1. No acute findings. Mild constipation. Mild fatty liver. Diagnosis Primary Impression: Chest pain Qualified Codes: R07.9 - Chest pain, unspecified Admitting Information Admitting Physician Requests: Observation Virginia Mccarty MD May 03, 2018 21:18
--- NOTE | 2018-05-03 22:16 | RADRPT ---
EXAM DATE: 05/03/2018 10:10 PM EDT AGE/SEX: 52 years / Male INDICATIONS: Abdomen pain. CLINICAL DATA: This is the patient's initial encounter. Patient reports that signs and symptoms have been present for 1 day and indicates a pain score of 6/10. MEDICAL/SURGICAL HISTORY: Cardiovascular disease. Hypertension. CABG. ORAL CONTRAST: No oral contrast ingested. RADIATION DOSE: 10.99 CTDI (mGy) COMPARISON: [facility], CT ABDOMEN & PELVIS W CONTRAST, 09/05/2016. . TECHNIQUE: Multiple contiguous axial images were obtained through the abdomen and pelvis following b olus infusion of 75 ml Omnipaque 350 (iohexol) nonionic water-soluble contrast as a single exam dos e. No oral contrast ingested. Using automated exposure control and adjustment of the mA and/or kV ac cording to patient size, radiation dose was kept as low as reasonably achievable to obtain optimal di agnostic quality images. DICOM format image data is available electronically for review and comparis on. FINDINGS: Lung bases are clear. No acute findings in the liver, spleen, adrenals, kidneys or pancreas. Postoper ative cholecystectomy. No free fluid. No bowel obstruction. No adenopathy. Mild constipation. CONCLUSION: 1. No acute findings. Mild constipation. Mild fatty liver. Electronically signed by: Mark Greenberg MD 05/03/2018 10:15 PM EDT
[2018-05-03] MEDS ORDERED: IOHEXOL 350 MG/ML 100 ML BTL (for Cath Lab) OTHER ONE (22:37)
[2018-05-03] MEDS ORDERED: IOHEXOL 350 MG/ML 10 ML VIAL (for RAD DIAG) IVCONTRAST ONE (22:37)
[2018-05-03 22:42] LABS: BILIRUBIN, URINE NEG (NEG); BLOOD, URINE NEG (NEG); GLUCOSE,URINE >=500 mg/dL (NEG); KETONE, URINE TRACE mg/dL (NEG); NITRITE,URINE NEG (NEG); URINE COLOR Straw (YELLW/STRAW); URINE LEUKOCYTE ESTERASE NEG (NEG)
[2018-05-03 22:43] VITALS: BP 162/87; PULSE 65; RESP 16; O2SAT 100
[2018-05-03] MEDS ORDERED: SODIUM CHLORIDE 0.9% FLUSH 10 ML FLUSH IV FLUSH PRN (22:45)
[2018-05-03] MEDS ORDERED: MORPHINE SULFATE 4 MG/ML INJ IV PUSH PRN (22:45)
[2018-05-03] MEDS ORDERED: ACETAMINOPHEN 500 MG CPLT PO PRN (22:45)
[2018-05-03] MEDS ORDERED: TEMAZEPAM 15 MG CAP PO PRN (22:45)
[2018-05-03] MEDS ORDERED: NITROGLYCERIN 0.4 MG SL 25 TABS/BTL SL PRN (22:45)
[2018-05-03 23:29] VITALS: BP 178/91; PULSE 67; RESP 16; TEMP 98.5; O2SAT 98
[2018-05-04] VITALS (13 sets, daily range): BP systolic 128–164; BP diastolic 68–81; PULSE 66–96; RESP 16–18; TEMP 97.8–98.8; O2SAT 98–99
[2018-05-04 01:12] LABS: TROPONIN I 0.07 NG/ML (0.02-0.05)
[2018-05-04 02:45] LABS: TROPONIN I 0.06 NG/ML (0.02-0.05)
[2018-05-04] MEDS ORDERED: ASPIRIN 325 MG TAB PO SCH (09:00)
--- NOTE | 2018-05-04 09:16 | HHI.HP ---
[facility] Everton Tello MD Admission Diagnosis CHEST PAIN Diagnoses: Chief Complaint: chest pain/ SOB Travel History International Travel<30 Days: No Contact w/Intl Traveler <30 Da: No Traveled to Known Affected Are: No History of Present Illness 52-year-old black male being admitted for angina. Patient was in his usual state of health until about a few days ago when he says his intermittent somewhat chronic chest pain began to get substantially worse as he was mowing the lawn and was associated with profound shortness of breath which was new to him. Says he had to stop walking multiple times in the midst of his lawnmowing to catch his breath. Says his chest pain was aching in nature and was 6/10 at its worst. Says he took his albuterol inhaler treatment but did not provide him any relief for at least 30 minutes. Patient says he takes aspirin almost daily. But he says that he used to take metoprolol up until about a year or so ago, is not clear as to whether his physician deliberately discontinued him or the patient himself misunderstood and stopped taking it or asking for refills. Patient does have a history of a CABG a few years ago. Patient does say he has chronic heartburn as well as chronic abdominal discomfort/pain. In the emergency department patient had an EKG done which I independently reviewed and shows no clear signs for acute ischemia or infarction but possible right bundle branch block. Troponins eventually did become mildly elevated. Review of Systems Except as stated in HPI: all other systems reviewed are Neg Past Family Social History Past Medical History DM CAD BPH Past Surgical History CABG Allergies: Coded Allergies: grass pollen (Unverified Allergy, Mild, ITCH, SNEEZE, 05/03/18) house dust (Unverified Allergy, Mild, ITCH, SNEEZE, 05/03/18) Family History DM in sister prostate CA in father CABG in mother Social History denies smoking, ETOH. 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 EYES: No scleral icterus. No injection or drainage. ENT: No nasal bleeding or discharge. CARDIOVASCULAR: Regular rate and rhythm. no murmurs RESPIRATORY: No accessory muscle use. Clear to auscultation. Breath sounds equal bilaterally. GASTROINTESTINAL: Abdomen soft, nontender, nondistended Extremities: No clubbing, cyanosis, or edema. No obvious deformities. MUSCULOSKELETAL: adequate muscle bulk and tone for age and habitus NEUROLOGICAL: Awake and alert. No obvious cranial nerve deficits. No facial droop nor slurred speech noted. PSYCHIATRIC: Appropriate mood and affect; insight and judgment normal. Laboratory Laboratory Tests Test 05/03/18 20:00 05/03/18 22:30 05/04/18 00:22 05/04/18 02:11 White Blood Count 5.6 Red Blood Count 5.74 Hemoglobin 13.4 Hematocrit 40.8 Mean Corpuscular Volume 71.2 Mean Corpuscular Hemoglobin 23.4 Mean Corpuscular Hemoglobin Concent 32.8 Red Cell Distribution Width 15.4 Platelet Count 187 Mean Platelet Volume 8.3 Neutrophils (%) (Auto) 51.1 Lymphocytes (%) (Auto) 34.2 Monocytes (%) (Auto) 10.6 Eosinophils (%) (Auto) 3.4 Basophils (%) (Auto) 0.7 Neutrophils # (Auto) 2.9 Lymphocytes # (Auto) 1.9 Monocytes # (Auto) 0.6 Eosinophils # (Auto) 0.2 Basophils # (Auto) 0.0 CBC Comment DIFF FINAL Differential Comment Prothrombin Time 10.5 Prothromb Time International Ratio 1.0 Activated Partial Thromboplast Time 26.9 Blood Urea Nitrogen 15 Creatinine 1.09 Random Glucose 228 Total Protein 7.4 Albumin 3.8 Calcium Level 9.0 Magnesium Level 1.8 Alkaline Phosphatase 104 Aspartate Amino Transf (AST/SGOT) 12 Alanine Aminotransferase (ALT/SGPT) 25 Total Bilirubin 0.3 Sodium Level 139 Potassium Level 3.5 Chloride Level 104 Carbon Dioxide Level 24.7 Anion Gap 10 Estimat Glomerular Filtration Rate 85 Total Creatine Kinase 214 213 215 Creatine Kinase MB 2.9 2.9 Troponin I 0.05 0.07 0.06 Lipase 84 Urine Color Straw Urine Turbidity CLEAR Urine pH 6.0 Urine Specific [place] 1.023 Urine Protein NEG Urine Glucose (UA) >=500 Urine Ketones TRACE Urine Occult Blood NEG Urine Nitrite NEG Urine Bilirubin NEG Urine Urobilinogen LESS THAN 2 Urine Leukocyte Esterase NEG Urine RBC LESS THAN 1 Urine WBC 1 Microscopic Urinalysis Comment CULT NOT INDICATED Result Diagram: 05/03/18199905/03/181999 Imaging Last Impressions Chest X-Ray 05/03/182001 Signed Impressions: CONCLUSION: No active disease. Postoperative median sternotomy. Abdomen/Pelvis CT 05/03/18 0000 Signed Impressions: CONCLUSION: 1. No acute findings. Mild constipation. Mild fatty liver. Caprini VTE Risk Assessment Caprini VTE Risk Assessment: Mod/High Risk (score >= 2) Caprini Risk Assessment Model Point Value = 1 Point Value = 2 Point Value = 3 Point Value = 5 Age 41-60 Minor surgery BMI > 25 kg/m2 Swollen legs Varicose veins or History of unexplained or recurrent spontaneous Oral contraceptives or hormone replacement Sepsis (< 1 month) Serious lung disease, including pneumonia (< 1 month) Abnormal pulmonary function Acute myocardial infarction Congestive heart failure (< 1 month) History of inflammatory bowel disease Medical patient at bed rest Age 61-74 Arthroscopic surgery Major open surgery (> 45 min) Laparoscopic surgery (> 45 min) Malignancy Confined to bed (> 72 hours) Immobilizing plaster cast Central venous access Age >= 75 History of VTE Family history of VTE Factor V Leiden Prothrombin [id number] Lupus anticoagulant Anticardiolipin antibodies Elevated serum homocysteine Heparin-induced thrombocytopenia Other congenital or acquired thrombophilia Stroke (< 1 month) Elective arthroplasty Hip, pelvis, or leg fracture Acute spinal cord injury (< 1 month) Prophylaxis Regimen Total Risk Factor Score Risk Level Prophylaxis Regimen 0-1 Low Early ambulation 2 Moderate Order ONE of the following: *Sequential Compression Device (SCD) *Heparin 5000 units SQ BID 3-4 Higher Order ONE of the following medications: *Heparin 5000 units SQ TID *Enoxaparin/Lovenox 40 mg SQ daily (WT < 150 kg, CrCl > 30 mL/min) *Enoxaparin/Lovenox 30 mg SQ daily (WT < 150 kg, CrCl > 10-29 mL/min) *Enoxaparin/Lovenox 30 mg SQ BID (WT < 150 kg, CrCl > 30 mL/min) AND/OR *Sequential Compression Device (SCD) 5 or more Highest Order ONE of the following medications: *Heparin 5000 units SQ TID (Preferred with Epidurals) *Enoxaparin/Lovenox 40 mg SQ daily (WT < 150 kg, CrCl > 30 mL/min) *Enoxaparin/Lovenox 30 mg SQ daily (WT < 150 kg, CrCl > 10-29 mL/min) *Enoxaparin/Lovenox 30 mg SQ BID (WT < 150 kg, CrCl > 30 mL/min) AND *Sequential Compression Device (SCD) Assessment and Plan Assessment and Plan 52-year-old black male admitted for angina Chest pain -Concerning for an NSTEMI -Continue aspirin, starting Lopressor, starting heparin drip - discussed case with cardiology, plans for cardiac catheterization today -continue home PPI -continue home lipitor DM - LDSS w/ accuchecks Chronic abd pain -possible dyspepsia vs IBS, f/u with PCP outpatient as CMP neg at this time asthma - continue home Tj Yanes MD May 04, 2018 09:16
[2018-05-04] MEDS ORDERED: DEXTROSE 50% IN WATER 50 ML VIAL(D50) IV PUSH PRN (09:30)
[2018-05-04] MEDS ORDERED: METOPROLOL TARTRATE 25 MG TAB PO ONE (09:30)
[2018-05-04] MEDS ORDERED: GLUCAGON 1 MG/ML VIAL OTHER PRN (09:30)
[2018-05-04] MEDS ORDERED: HEPARIN-D5W 25,000 U/250 ML 250 ML IV PRN (09:30)
[2018-05-04] MEDS: SODIUM CHLORIDE 0.9% FLUSH 10 ML FLUSH IV FLUSH SCH ×2 (10:23→21:55)
--- NOTE | 2018-05-04 10:49 | MB ---
cc: Kaushal Singh MD DATE: 05/04/2018 HISTORY OF PRESENT ILLNESS: Mr. Isbell is a 52-year-old black male with a history of 5-vessel coronary artery bypass, who developed substernal and left parasternal chest discomfort when he was mowing his lawn. It was intermittent. The pain was of moderate intensity. He has had similar pains after albuterol inhaler treatments in the past. He denies any shortness of breath, dizziness, lightheadedness, palpitations or peripheral edema. He also complains of chronic abdominal discomfort. PAST MEDICAL HISTORY: Positive for 5 vessel coronary bypass, diabetes mellitus, and BPH. MEDICATIONS: Aspirin. ALLERGIES: NO KNOWN MEDICAL ALLERGIES. SOCIAL HISTORY: The patient does not smoke and does not drink alcohol. He is a realtor and business enterprise officer. FAMILY HISTORY: Positive for heart disease in his mother and diabetes in a sister. REVIEW OF SYSTEMS: Otherwise negative. PHYSICAL EXAMINATION: VITAL SIGNS: Blood pressure 137/81, pulse 66 and regular. HEENT: Negative. NECK: 2+ upstroke. No bruits. LUNGS: Clear. HEART: Regular with no murmur, gallop or rub. ABDOMEN: Soft, no bruit. EXTREMITIES: No edema. 2+ distal pulses. NEUROLOGIC: Grossly nonfocal. LABORATORY DATA: EKG was reviewed and showed a normal sinus rhythm, normal axis, right bundle-branch block and no acute changes. LABORATORY DATA: Hemoglobin 13.4, potassium 3.5, creatinine 1.1. CK 214, 213 and 215. Troponin 0.05, 0.07 and 0.06. ASSESSMENT: 1. Unstable angina. 2. Mildly abnormal troponin. 3. Coronary artery disease with a history of 5 vessel coronary bypass. DISPOSITION: Ms. Isbell will be scheduled for cardiac catheterization and coronary intervention if necessary. He understands the risks and benefits and wishes to proceed. I recommend aggressive modification of his cardiac risk factors. Kaushal Singh MD OQ/DL , 10:21 AM , 10:47 AM [facility]
[2018-05-04 10:52] LABS: HEMATOCRIT 41.5 % (39.0-51.0); HEMOGLOBIN 13.3 GM/DL (13.0-17.0); MEAN CELL VOLUME 70.9 FL (80.0-100.0); MEAN CORPUSCULAR HEMOGLOBIN 22.8 PG (27.0-34.0); MEAN CORPUSCULAR HGB CONC 32.2 % (32.0-36.0); MEAN PLATELET VOLUME 8.3 FL (7.0-11.0); PLATELET COUNT 189 TH/MM3 (150-450); RED BLOOD COUNT 5.85 MIL/MM3 (4.50-5.90); RED CELL DISTRIBUTION WIDTH 15.2 % (11.6-17.2); WHITE BLOOD COUNT 4.7 TH/MM3 (4.0-11.0)
[2018-05-04 11:02] LABS: INTERNATIONAL NORMALIZED RATIO 1.1 RATIO; PROTHROMBIN TIME - PATIENT 11.3 SEC (9.8-11.6)
[2018-05-04] MEDS: INSULIN NovoLIN REGULAR SUPPLEMENTAL SCALE SQ SCH ×3 (12:00→21:57)
[2018-05-04] MEDS ORDERED: MIDAZOLAM HCL 5 MG/5 ML VIAL ONE (13:20)
[2018-05-04] MEDS ORDERED: HEPARIN-NS/PF INJ 1,000 ML ONE (13:20)
[2018-05-04] MEDS ORDERED: NITROGLYCERIN INJ 5 ML ONE (13:21)
[2018-05-04] MEDS ORDERED: HEPARIN SODIUM - IV 10,000 UNITS/10 ML VIAL ONE (13:21)
[2018-05-04] MEDS ORDERED: MIDAZOLAM HCL 2 MG/2 ML VIAL ONE (15:05)
[2018-05-04] MEDS ORDERED: CLOPIDOGREL 300 MG TAB ONE (15:21)
[2018-05-04] MEDS ORDERED: SODIUM CHLOR 0.9% 1000 ML INJ 1,000 ML IV SCH (15:38)
--- NOTE | 2018-05-04 15:43 | CATHPROC ---
[facility]recogn[facility] HIS Report Study Information Study Number Admission Scheduled Start Study Start [id number] May 03 2018 10:36PM 05/04/2018 May 04 2018 12:37PM [place] [facility] Cardiac Catheterization Admit Source Facility Department Emergency department [facility] - Electric Wheelchair Repairer Physician and Clinical Staff Initial Kaushal Sauceda Proposal Director Nellie Hoffman RN Recorder Bethanie Luis BSN Scrub Feli Rosenbaum,RT(R) (BS) Procedures Performed Procedure Location (Site) Vessel Name Angiogram LV LV Ventricle Coronary Angiograms LCA Left Coronary Coronary Angiograms RCA Right Coronary Coronary Angiograms RODRIGUEZ-LAD Left Coronary Coronary Angiograms SVG-OM 1 CIRC Coronary Angiograms SVG-OM 3 CIRC Coronary Angiograms SVG-RCA Right Coronary Coronary Angiograms Gft. Stump 1 SVG Graft L Heart Cath PTCA SVG-RCA Right Coronary Stent SVG-RCA Right Coronary Wire insertion Fem Art (right) Femoral Art Equipment Time Process Development Manager Description Size Mfg Part Number Used/Scraped WIRE, BALANCE MIDDLEWEIGHT [id number] 15:00 [employer] 190CM Used 190CM *[id number] TRANSDUCER, TRUWAVE [id number] 12:42 BURROWS KWON * Used W/STOCKCOCK *[id number] 15:21 CARD[employer]repChamps MEDICAL VASCADE, FR6 CLOSURE SYSTEM FR 6\\7 Used *[id number] *[id number] [id number] *[id number] 534-560T *[id number] 534-572T *[id number] [id number] *[id number] 12:42 Push IO BLANKET,WARM AIR CCL * Used *[id number] 12:42 Push IO PACK, CCL CUSTOM * Used *[id number] 12:42 [employer] PACER PEN, SKIN DUAL W/ RULER * Used *[id number] 15:05 MEDTRONIC BALLOON, 2.0 X 6MM EUPHORA 6MM Used *[id number] 13:39 MEDTRONIC JL 4.0 DXTERITY CATHETER FR 5 Used *[id number] 15:13 MEDTRONIC STENT, 2.25 8 INTEGRITY 2.25 8 Used *[id number] [id number] 15:11 Kicksend 30 CATARINA INDEFLATOR Used *[id number] 14:58 MERIT MEDICAL SHEATH, FR6.5 PRELUDE 11CM FR 6.5 038ACT Used *[id number] 15:00 MERIT [employer] WIRE, 3MMJ .035 180CM 180CM Used *[id number] 14:28 MERIT MEDICAL WIRE, 3MMJ .035 180CM 180CM Used *[id number] [id number] 12:42 MERIT MEDICAL WIRE, 3MMJ .035 180CM 180CM Used *[id number] PROBE COVER, STERILE [id number] 12:42 [employer] MEDICAL * Used ULTRASOUND W/ GEL *[id number] 12:42 NAMIC MANIFOLD, 4 PORT * Used *[id number] 12:42 NAMIC TUBING, HIGH PRESSURE 48" 48" Used *[id number] [id number] 15:02 NAMIC TUBING, HIGH PRESSURE 48" 48" Used *[id number] 15:01 NYCOMED OMNIPAQUE, 350 MG, 150ML 150ML [id number] Used 14:41 NYCOMED OMNIPAQUE, 350 MG, 150ML 150ML [id number] Used 15:09 NYCOMED OMNIPAQUE, 350 MG, 150ML 150ML [id number] Used 12:42 NYCOMED OMNIPAQUE, 350 MG, 150ML 150ML [id number] Used 14:14 NYCOMED OMNIPAQUE, 350 MG, 150ML 150ML [id number] Used 14:14 NYCOMED OMNIPAQUE, 350 MG, 50ML 50ML [id number] Used 14:14 NYCOMED OMNIPAQUE, 350 MG, 50ML 50ML [id number] Used [id number] 12:42 TERUMO MEDICAL SHEATH, FR5 TERUMO (10CM) FR 5 Used *[id number] Equipment Model, Serial, Lot Number and Expiration Data Description Model Number Serial Number Lot Number Expiration Date JL 4.0 DXTERITY CATHETER [id number] 09-01-2020 STENT, 2.25 8 INTEGRITY [id number] 03-12-2019 History: Current Medications Medication Dosage/Unit Route Frequency Last Date/Time Taken Statins (any) ASA 325 mg 05/04/2018 Beta Jenny 12.5 mg 05/04/2018 History: Allergies Allergy Reaction Dust ITCH, SNEEZE Grass ITCH, SNEEZE house dust ITCH, SNEEZE grass pollen ITCH, SNEEZE History: Risk Factors Family History of Hypertension Dyslipidemia Previous NM Previous Heart Failure Premature CAD No No Yes No No Prior Valve Prior PCI Prior CABG Prior CABGDate Surgery No No Yes 04/04/2013 Cerebrovascular Peripheral Artery Chronic Lung On Dialysis Diabetes Diabetes Therapy Disease Disease Disease No No No No Yes Oral History: NM/CV Data Previous CABG Date 04/04/2013 Labs Hgb (g/dl) Hct (%) WBC (l/cumm) Platelets (thousands) 11.60-17.00 35.00-51.00 4.00-11.00 150.00-450.00 13.3 41.5 4.7 189 Glucose (mg/dl) BUN (mg/dl) Creatinine (mg/dl) BUN:Creatinine (1:x) 74.00-106.00 7.00-18.00 0.50-1.30 10.00-20.00 228 15 1.0 15 Na (meq/l) K (meq/l) 136.00-145.00 3.50-5.10 139 3.5 INR (PTT:PT) 0.90-1.10 1.1 Troponin I (ng/ml) CPK (u/l) CPK-MB (ng/ML) 0.02-0.05 26.00-308.00 0.50-3.60 0.06 215 2.9 Medication Medication Total Dose (Bolus/Oral) Medication Total Dosage/Unit 1% XYLOCAINE 20 mL FENTANYL 150 mcg HEPARIN 7000 units NTG (IC) 400 mcg OXYGEN 2 l/min PLAVIX 600 mg VERSED 6 mg Medications (Bolus/Oral) Medication Time Given Dosage/Unit Administered By Reason OXYGEN 05/04/2018 1:23:58 PM 2 l/min Nellie Hoffman 2 l/min OXYGEN given in lab by Nellie Hoffman RN via Nasal. Ordered by Kaushal Singh. VERSED 05/04/2018 1:50:42 PM 2 mg Nellie Hoffman 2 mg VERSED given in lab by Nellie Hoffman RN via Peripheral IV. Ordered by Kaushal Singh. FENTANYL 05/04/2018 1:51:50 PM 50 mcg Nellie Hoffman 50 mcg FENTANYL given in lab by Nellie Hoffman RN via Peripheral IV. Ordered by Kaushal Singh. VERSED 05/04/2018 2:10:57 PM 1 mg Nellie Hoffman 1 mg VERSED given in lab by Nellie Hoffman RN via Peripheral IV. Ordered by Kaushal Singh. FENTANYL 05/04/2018 2:11:08 PM 25 mcg Yasmin, Nellie 25 mcg FENTANYL given in lab by Nellie Hoffman RN via Peripheral IV. Ordered by Kaushal Singh. 1% XYLOCAINE 05/04/2018 2:16:26 PM 20 mL Kaushal Singh 20 mL 1% XYLOCAINE given in lab by Kaushal Singh in Right Groin via Subcutaneous. Ordered by Kaushal Wright. VERSED 05/04/2018 2:57:32 PM 1 mg Nellie Hoffman 1 mg VERSED given in lab by Nellie Hoffman RN via Peripheral IV. Ordered by Kuashal Singh. FENTANYL 05/04/2018 2:58:36 PM 25 mcg Nellie Hoffman 25 mcg FENTANYL given in lab by Nellie Hoffman RN via Peripheral IV. Ordered by Kaushal Singh. HEPARIN 05/04/2018 3:00:40 PM 7000 units Nellie Hoffman 7000 units HEPARIN given in lab by Nellie Hoffman RN via Peripheral IV. Ordered by Kaushal Singh. VERSED 05/04/2018 3:08:42 PM 1 mg Nellie Hoffman 1 mg VERSED given in lab by Nellie Hoffman RN via Peripheral IV. Ordered by Kaushal Singh. NTG (IC) 05/04/2018 3:09:07 PM 200 mcg Kaushal Singh 200 mcg NTG (IC) given in lab by Kaushal Singh via Intra-coronary. Ordered by Kaushal Singh. FENTANYL 05/04/2018 3:09:46 PM 25 mcg Nellie Hoffman 25 mcg FENTANYL given in lab by Nellie Hoffman RN via Peripheral IV. Ordered by Kaushal Singh. NTG (IC) 05/04/2018 3:16:17 PM 200 mcg Kaushal Singh 200 mcg NTG (IC) given in lab by Kaushal Singh via Intra-coronary. Ordered by Kaushal Singh. VERSED 05/04/2018 3:24:07 PM 1 mg Nellie Hoffman 1 mg VERSED given in lab by Nellie Hoffman RN via Peripheral IV. Ordered by Kaushal Singh. FENTANYL 05/04/2018 3:25:17 PM 25 mcg Nellie Hoffman 25 mcg FENTANYL given in lab by Nellie Hoffman RN via Peripheral IV. Ordered by Kaushal Singh. PLAVIX 05/04/2018 3:35:25 PM 600 mg Nellie Hoffman 600 mg PLAVIX given in lab by Nellie Hoffman RN via Oral. Ordered by Kaushal Singh. Medication (Drip) Medication Time Given Dosage/Unit Concentration/Unit Diluent (ml) Solution IV Bolus 05/04/2018 1:25:22 PM 1000 mL (Bolus) NaCl .9 1000 mL (Bolus) IV Bolus given in lab by Nellie Hoffman RN via Peripheral IV. Using NaCl .9. Ordere d by Kaushal Singh. IV Bolus 05/04/2018 2:20:48 PM 500 mL (Bolus) NaCl .9 500 mL (Bolus) IV Bolus given in lab by Nellie Hoffman RN via Peripheral IV. Using NaCl .9. Ordered by Kaushal Singh. IV Solutions 05/04/2018 1:21:49 PM 50 mL (IV) NaCl .9 IV Solutions given in lab by Nellie Hoffman RN in Right Antecubital via Peripheral IV. Pump/Drip Fl ow using NaCl .9. Ordered by Kaushal Singh. at [facility] Initial Case Assessment Cardiovascular HR Rhythm NIBP Chest Pain 67 sr 169/91 0 Edema Present Skin color Skin None Normal Warm Dry Circulatory - Right Pulses Dorsalis Pedis Femoral 1 2 Scale (0,1,2,3,4,d) Circulatory - Left Pulses Dorsalis Pedis Femoral 1 2 Scale (0,1,2,3,4,d) Circulatory - Lower Extremities Color Lower Right Color Lower Left Normal Normal Neurological State Oriented to time-place- Alert Moves all extremities person Respiration - General Respiration Rate SpO2 (%) (B/min) 16 99 Chronological Log Time Study Chronological Log 13:11:06 Patient arrived via Bed. 13:11:07 Patient Name, D.O.B, / Armband Verified By R.N. 13:11:09 Consent signed by the physician and the patient and verified by the Electric Wheelchair Repairer staff. 13:11:12 Pre-op and post- op instructions given; patient acknowledges understanding of instruction s. 13:11:15 Patient has been NPO for More than 6Hrs. 13:11:15 Skin Breakdown- none per patient 13:16:36 Skin Breakdown-none per pt 13:16:46 Patient Warmer Placed on the Table. 13:16:48 Brittney Prominences Protected 13:16:54 History and physical on the chart or being dictated. Assessment: Initial Case, HR=67 BPM, Rhythm=sr, ZBGX=353/91 mmhg, Chest Pain=0, Edema=None, Col or=Normal, Skin = Warm, Dry Right Pulses: Berny Ped=1, Femoral=2 Left Pulses: Berny Ped=1, Femoral=2 13:16:55 Lower Right Extremities: Color=Normal Lower Left Extremities: Color=Normal Neurological: State=Alert, Ox3, JUÁREZ Respiration: Resp=16 B/min, SpO2=99 % Vitals capture started with the following parameters, Patient=Adult, Interval=5 min, Initial Pr usbuol=390 mmHg, 13:19:56 Deflation Rate=5 mmHg, Cuff placed on Left Arm 13:20:25 Reference ECG taken 13:20:27 A # 18 IV was noted in the Antecubital (right). Grade = 0 13:21:19 HR=65 bpm, KABY=155/91 mmhg, SpO2=98.0 %, Resp=5 B/min, Pain=0, Laina=10, Romero=2 IV Solutions given in lab by Nellie Hoffman, DEANN in Right Antecubital via Peripheral IV. Pump/D rip Flow using NaCl .9. 13:21:49 Ordered by Kaushal Singh. at o 13:23:58 2 l/min OXYGEN given in lab by Nellie Hoffman, RN via Nasal. Ordered by Kaushal Singh. 1000 mL (Bolus) IV Bolus given in lab by Nellie Hoffman, DEANN via Peripheral IV. Using NaCl .9. Ordered by Francisco 13:25:22 Kaushal. 13:25:46 HR=68 bpm, PWFT=421/95 mmhg, SpO2=98.0 %, Resp=15 B/min, Pain=0, Laina=10, Romero=2 13:28:16 Bilateral groins prepped with 2% chlorhexidine, and draped after a 3 minute waiting time. 13:30:39 HR=67 bpm, LKYZ=636/79 mmhg, SpO2=97.0 %, Resp=12 B/min, Pain=0, Laina=10, Romero=2 13:31:45 Pressure channel 1 zeroed. 13:34:09 paged 13:35:40 HR=65 bpm, CBAS=696/78 mmhg, SpO2=98.0 %, Resp=15 B/min 13:40:41 HR=64 bpm, LQPC=902/78 mmhg, SpO2=98.0 %, Resp=14 B/min 13:45:23 MD responded 13:45:40 HR=63 bpm, FOLG=352/75 mmhg, SpO2=99.0 %, Resp=10 B/min 13:50:41 HR=63 bpm, UFBK=966/77 mmhg, SpO2=98.0 %, Resp=12 B/min 13:50:42 2 mg VERSED given in lab by Nellie Hoffman, DEANN via Peripheral IV. Ordered by Liu Singh 13:51:50 50 mcg FENTANYL given in lab by Nellie Hoffman, DEANN via Peripheral IV. Ordered by Kaushal Singh. 13:55:40 HR=65 bpm, PRDV=380/76 mmhg, SpO2=99.0 %, Resp=16 B/min 14:00:43 HR=64 bpm, ARBY=962/74 mmhg, SpO2=99.0 %, Resp=12 B/min 14:05:44 HR=62 bpm, JIKK=429/75 mmhg, SpO2=99.0 %, Resp=14 B/min 14:09:18 arrived. 14:10:45 HR=61 bpm, VWGU=227/74 mmhg, SpO2=99.0 %, Resp=11 B/min 14:10:57 1 mg VERSED given in lab by Nellie Hoffman, DEANN via Peripheral IV. Ordered by Liu Singh 14:11:08 25 mcg FENTANYL given in lab by Nellie Hoffman, DEANN via Peripheral IV. Ordered by Kaushal Singh. 14:15:44 HR=64 bpm, YBQH=856/75 mmhg, SpO2=98.0 %, Resp=15 B/min Time Out. Correct patient, correct procedure, correct physician, labs, allergies, and equipment verified with laboratory tester 14:16:02 team present. Fire risk assesment completed (see hard stop sheet for coding). Time Out Conc urred by MD and individual staff in procedure. 14:16:23 Case Start 14:16:26 20 mL 1% XYLOCAINE given in lab by Kaushal Singh in Right Groin via Subcutaneous. Ordered by Kaushal Singh. 14:17:49 Access site was Right Femoral Artery. 14:18:01 A SHEATH, FR5 TERUMO (10CM) FR 5 was advanced into the Fem Art (right) using the Percutaneo us technique. A PIGTAIL ANG. INFINITI CATHETER FR 5 was advanced over a wire. OMNIPAQUE, 350 MG, 150ML 150ML was used 14:18:55 for injections. Recorded Pressure: LV, HR=63, Condition=Condition 1 14:20:19 (Left Ventricle) LV 126/5/16 14:20:41 HR=63 bpm, YYJK=681/81 mmhg, Resp=12 B/min 500 mL (Bolus) IV Bolus given in lab by Nellie Hoffman, DEANN via Peripheral IV. Using NaCl .9. O rdered by Francisco, 14:20:48 Kaushal. 14:21:33 The LV was injected at 10 cc/sec for a total of 30. OMNIPAQUE, 350 MG, 50ML 50ML used. Recorded Pressure: LV, Ao, HR=63, Condition=Condition 1 14:22:13 (Left Ventricle) LV 114/8/14, (Aorta) Ao 113/65/85 After removing the current catheter a JL 4.0 DXTERITY CATHETER FR 5 was advanced over a WIRE, 3 MMJ .035 180CM 14:22:43 180CM. Recorded Pressure: Ao, HR=62, Condition=Condition 1 14:23:20 (Aorta) Ao 122/68/91 14:24:34 A WIRE, 3MMJ .035 180CM 180CM was inserted via Fem Art (right). 14:25:43 Wire removed 14:25:44 HR=64 bpm, ABMT=436/75 mmhg, SpO2=99.0 %, Resp=16 B/min 14:26:29 The LCA was injected and visualized at various angles. OMNIPAQUE, 350 MG, 150ML 150ML used . After removing the current catheter a AR MOD INFINITI CATHETER FR 5 was advanced over a WIRE, 3 MMJ .035 180CM 14:28:16 180CM. 14:30:45 HR=66 bpm, WAEG=283/76 mmhg, SpO2=99.0 %, Resp=12 B/min 14:31:19 The RCA was injected and visualized at various angles. OMNIPAQUE, 350 MG, 150ML 150ML used . 14:32:20 The SVG-OM 1 was injected and visualized at various angles. OMNIPAQUE, 350 MG, 150ML 150ML used. 14:33:27 The SVG-OM 3 was injected and visualized at various angles. OMNIPAQUE, 350 MG, 150ML 150ML used. 14:35:40 The SVG-RCA was injected and visualized at various angles. OMNIPAQUE, 350 MG, 150ML 150ML u sed. 14:35:46 HR=65 bpm, WLTM=120/77 mmhg, SpO2=99.0 %, Resp=18 B/min After removing the current catheter a LCB INFINITI CATHETER FR 5 was advanced over a WIRE, 3MMJ .035 180CM 14:40:44 180CM. 14:40:47 HR=64 bpm, CVPC=966/68 mmhg, SpO2=99.0 %, Resp=11 B/min 14:43:14 The Gft. Stump 1 was injected and visualized at various angles. OMNIPAQUE, 350 MG, 150ML 15 0ML used. After removing the current catheter a LCB INFINITI CATHETER FR 5 was advanced over a WIRE, 3MMJ .035 180CM 14:44:06 180CM. 14:45:30 The RODRIGUEZ-LAD was injected and visualized at various angles. OMNIPAQUE, 350 MG, 150ML 150ML used. 14:45:46 HR=64 bpm, CUPA=247/73 mmhg, SpO2=99.0 %, Resp=15 B/min 14:46:27 Catheter was removed 14:49:26 An injection in the Fem Art (right) was made through the SHEATH, FR5 TERUMO (10CM) FR 5. 14:50:45 HR=67 bpm, AZCW=887/87 mmhg, JfX7=344.0 %, Resp=12 B/min 14:55:47 HR=62 bpm, LZLW=752/81 mmhg, CqF9=883.0 %, Resp=16 B/min 14:57:32 1 mg VERSED given in lab by Nellie Hoffman RN via Peripheral IV. Ordered by Liu Singh A SHEATH, FR6.5 PRELUDE 11CM FR 6.5 was exchanged in the Fem Art (right). This was necessary in order to 14:58:05 accomodate a larger catheter. 14:58:36 25 mcg FENTANYL given in lab by Nellie Hoffman RN via Peripheral IV. Ordered by Kaushal Singh. 15:00:40 7000 units HEPARIN given in lab by Nellie Hoffman, DEANN via Peripheral IV. Ordered by Kaushal Wright. 15:00:48 HR=65 bpm, GFEN=524/86 mmhg, NzO0=708.0 %, Resp=15 B/min 15:03:28 Pressure channel 1 zeroed. A AL 1 SH GUIDE CATHETER FR 6 was advanced over a wire. OMNIPAQUE, 350 MG, 150ML 150ML was used for 15:05:15 injections. 15:05:51 HR=62 bpm, HWYB=218/74 mmhg, DkS7=361.0 %, Resp=15 B/min 15:07:14 A WIRE, BALANCE MIDDLEWEIGHT 190CM 190CM was inserted via Fem Art (right). 15:08:36 Interventional wire has crossed the lesion 15:08:42 1 mg VERSED given in lab by Nellie Hoffman RN via Peripheral IV. Ordered by Liu Singh 15:08:58 Activated Clotting Time Drawn 15:09:07 200 mcg NTG (IC) given in lab by Kaushal Singh via Intra-coronary. Ordered by Gus Singh 15:09:46 25 mcg FENTANYL given in lab by Nellie Hoffman RN via Peripheral IV. Ordered by Kaushal Singh. A BALLOON, 2.0 X 6MM EUPHORA 6MM was inserted over WIRE, BALANCE MIDDLEWEIGHT 190CM 190CM via t he 15:10:19 Fem Art (right). 15:10:52 HR=68 bpm, CXEP=844/67 mmhg, SpO2=97.0 %, Resp=11 B/min A BALLOON, 2.0 X 6MM EUPHORA 6MM over a WIRE, BALANCE MIDDLEWEIGHT 190CM 190CM in the SVG-RCA w as 15:11:07 inflated using a 30 CATARINA INDEFLATOR at 12 catarina for 15 sec. A BALLOON, 2.0 X 6MM EUPHORA 6MM over a WIRE, BALANCE MIDDLEWEIGHT 190CM 190CM in the SVG-RCA w as 15:11:45 inflated using a 30 CATARINA INDEFLATOR at 12 catarina for 10 sec. 15:12:04 Balloon Removed. An STENT, 2.25 8 INTEGRITY 2.25 8 Bare Metal Stent was inserted through a AL 1 SH GUIDE CATHETE R FR 6 over a 15:13:06 WIRE, BALANCE MIDDLEWEIGHT 190CM 190CM. 15:13:41 ACT (Normal Range 90-180) = 393 A STENT, 2.25 8 INTEGRITY 2.25 8 was deployed using a 30 CATARINA INDEFLATOR at 10 atmospheres for 2 0 seconds in 15:14:29 the SVG-RCA. 15:15:32 Delivery device removed 15:15:49 HR=66 bpm, IGIA=303/69 mmhg, SpO2=98.0 %, Resp=13 B/min 15:16:17 200 mcg NTG (IC) given in lab by Kaushal Singh via Intra-coronary. Ordered by Gus Singh. 15:16:54 Wire removed 15:17:49 Case End (Physician broke scrub) 15:18:06 A Left Heart Cath was performed. 15:18:15 Catheter(s) removed without difficulty 15:18:41 No case complications noted. 15:18:43 Cine recording checked. 15:18:48 Holding Area notified of successful intervention. 15:18:50 Bedside Report will be given. 15:19:51 Implantable Device card placed in patient's chart. 15:19:55 A Left Heart Cath was performed. 15:20:48 HR=66 bpm, HBEU=274/72 mmhg, SpO2=98.0 %, Resp=13 B/min 15:24:07 1 mg VERSED given in lab by Nellie Hoffman, DEANN via Peripheral IV. Ordered by Liu Singh. 15:25:00 VASCADE, FR6 CLOSURE SYSTEM FR 6\\7 placement in the Fem Art (right); pressure held 15:25:17 25 mcg FENTANYL given in lab by Nellie Hoffman, DEANN via Peripheral IV. Ordered by Kaushal Singh. 15:25:51 HR=62 bpm, CMND=138/68 mmhg, SpO2=99.0 %, Resp=16 B/min 15:30:50 HR=62 bpm, IAVE=898/73 mmhg, SpO2=99.0 %, Resp=13 B/min 15:35:25 600 mg PLAVIX given in lab by Nellie Hoffman, RN via Oral. Ordered by Kaushal Singh. 15:35:51 HR=64 bpm, HTVN=945/74 mmhg, SpO2=99.0 %, Resp=11 B/min, Pain=0, Laina=10, Romero=2 15:36:08 Sterile dressing applied to site 15:40:27 Vitals capture stopped. 15:45:12 Patient moved to stretcher End Study - Contrast Media Used In Study Contrast Total Opened (mL) Total Used (mL) Total Wasted (mL) Omnipaque 255 255 0 End Study - Maximum Contrast Load Max Contrast Load (mL) 460.0 End Study - Radiation Exposure Fluoro Time (minutes) 16.4 End Study - Patient Disposition Complications Transferred To Interventional Outcome No Electric Wheelchair Repairer Holding successful
[2018-05-04] MEDS ORDERED: PILL SPLITTER OTHER PRN (16:00)
--- NOTE | 2018-05-04 16:34 | MA ---
cc: Kaushal Singh MD DATE: 05/04/2018 INDICATIONS: Unstable angina, class 3 angina, coronary artery disease, history of 5-vessel coronary artery bypass. PROCEDURE PERFORMED: 1. Retrograde left heart catheterization with left ventriculography, selective coronary angiography, saphenous venous graft angiography and left internal mammary artery angiography. 2. Angioplasty and stenting of the distal right coronary artery via saphenous vein graft. 3. Moderate sedation. ACCESS SITE: Right femoral artery. EQUIPMENT USED: A 5-Guyanese pigtail catheter, 5-Guyanese JL4 and AR modified coronary artery catheters, left bypass graft catheter, left internal mammary artery catheter. AR1 with side holes, BMW wire, 2.0 x 6 mm balloon for pre-dilatation and 2.25 x 8 mm Integrity bare-metal stent at 10 atmospheres to the distal RCA. MEDICATIONS: Versed IV, fentanyl IV, heparin IV, nitroglycerin IC, Plavix 600 mg p.o. CONTRAST: Omnipaque 255 cc. COMPLICATIONS: None. ESTIMATED BLOOD LOSS: Less than 10 mL METHOD OF HEMOSTASIS: Vascade closure. RESULTS: HEMODYNAMICS: Heart rate 60 beats per minute. Left ventricular end-diastolic pressure 8 mmHg. Left ventricle 126/80. Aorta 126/68/91. B. LEFT VENTRICULOGRAPHY: Left ventricular ejection fraction 45%. Wall motion: Mild global hypokinesis, no mitral regurgitation. C. CORONARY ANGIOGRAPHY: Left main coronary artery is patent. Left anterior descending artery is totally occluded in the mid portion. First diagonal has 70% stenosis and evidence of occluded vein graft. It is a small caliber vessel. Left circumflex artery has 90% stenosis in the distal portion. OM1 has 70% stenosis. OM2 is occluded. Right coronary artery is a dominant vessel, which is totally occluded in the proximal portion. D. SAPHENOUS VENOUS GRAFT ANGIOGRAPHY: Left internal mammary artery graft to the left anterior descending artery is patent. Distal diagonal branch has 60% ostial stenosis, it is a small caliber vessel. The saphenous venous graft to the third obtuse marginal artery is patent. The saphenous venous graft to the first obtuse marginal artery is patent. The saphenous venous graft to the first diagonal artery is totally occluded. The saphenous venous graft to the right coronary artery is patent. Distal right coronary artery has 80% focal stenosis. PDA has 40% stenosis. Distal right coronary artery: 80% stenosis. Lesion length 4 mm, pre-SUSAN flow 3, post-SUSAN flow 3, post-stenosis 0. POST-INTERVENTION ANGIOGRAPHY: Revealed no evidence of dissection, thrombosis or distal embolization. DIAGNOSES: 1. Coronary artery disease with patent 4/5 grafts and severe stenosis of the distal right coronary artery distally to the saphenous venous graft. 2. Mild left ventricular dysfunction consistent with ischemic cardiomyopathy. 3. Successful angioplasty and stenting of the distal right coronary artery. DISPOSITION: Mr. Isbell will be monitored on telemetry after his procedure. We will continue Plavix for at least 3 months and aspirin indefinitely. I recommend aggressive modification of his cardiac risk factors. MD JM Hull/VIN , 03:35 PM , 04:32 PM SAMI
--- NOTE | 2018-05-04 17:08 | EKG ---
Date Performed: 05/03/2018 Time Performed: 20:09:31 PTAGE: 52 years EKG: Sinus rhythm RIGHT BUNDLE BRANCH BLOCK ABNORMAL ECG PREVIOUS TRACING 03/20/2018 @ 01.06 Since the previous tracing, no significant change no freddie DOCTOR: Aracely Gasca Interpretating Date/Time 05/04/2018 17:04:08
--- NOTE | 2018-05-04 17:09 | EKG ---
Date Performed: 05/04/2018 Time Performed: 00:31:09 PTAGE: 52 years EKG: Sinus rhythm BORDERLINE LEFT AXIS DEVIATION RIGHT BUNDLE BRANCH BLOCK ABNORMAL ECG PREVIOUS TRACING : 05/03/2018 20.09 Since the previous tracing, no significant change noted DOCTOR: Aracely Gasca Interpretating Date/Time 05/04/2018 17:04:24
--- NOTE | 2018-05-04 17:09 | EKG ---
Date Performed: 05/04/2018 Time Performed: 02:05:15 PTAGE: 52 years EKG: Sinus rhythm BORDERLINE LEFT AXIS DEVIATION RIGHT BUNDLE BRANCH BLOCK ABNORMAL ECG PREVIOUS TRACING : 05/04/2018 00.31 Since the previous tracing, no significant change noted DOCTOR: Aracely Gasca Interpretating Date/Time 05/04/2018 17:05:14
[2018-05-04 20:18] LABS: AUTOMATED NEUTROPHIL # 2.3 TH/MM3 (1.8-7.7); BASOPHIL % 0.7 % (0.0-2.0); EOSINOPHIL # 0.2 TH/MM3 (0-0.4); EOSINOPHIL % 4.4 % (0.0-4.0); HEMATOCRIT 40.5 % (39.0-51.0); HEMOGLOBIN 12.7 GM/DL (13.0-17.0); LYMPH % 35.9 % (9.0-44.0); LYMPHOCYTE # 1.7 TH/MM3 (1.0-4.8); MEAN CELL VOLUME 71.2 FL (80.0-100.0); MEAN CORPUSCULAR HEMOGLOBIN 22.3 PG (27.0-34.0); MEAN CORPUSCULAR HGB CONC 31.3 % (32.0-36.0); MEAN PLATELET VOLUME 9.1 FL (7.0-11.0); MONO % 9.9 % (0.0-8.0); MONOCYTE # 0.5 TH/MM3 (0-0.9); NEUT % 49.1 % (16.0-70.0); PLATELET COUNT 179 TH/MM3 (150-450); RED BLOOD COUNT 5.68 MIL/MM3 (4.50-5.90); RED CELL DISTRIBUTION WIDTH 15.3 % (11.6-17.2); WHITE BLOOD COUNT 4.8 TH/MM3 (4.0-11.0)
[2018-05-04] MEDS: ATORVASTATIN 40 MG TAB PO SCH (21:55)
[2018-05-04] MEDS: GABAPENTIN 300 MG CAP PO SCH (21:55)
[2018-05-04] MEDS: PANTOPRAZOLE SOD 20 MG DELAYED RELEASE TAB PO SCH (21:55)
[2018-05-04] MEDS: METOPROLOL TARTRATE 25 MG TAB PO SCH (21:55)
[2018-05-05] VITALS (27 sets, daily range): BP systolic 109–134; BP diastolic 66–84; PULSE 64–130; RESP 16–18; TEMP 97.7–98.6; O2SAT 97–100
[2018-05-05 06:31] LABS: AUTOMATED NEUTROPHIL # 2.8 TH/MM3 (1.8-7.7); BASOPHIL % 0.6 % (0.0-2.0); EOSINOPHIL # 0.2 TH/MM3 (0-0.4); EOSINOPHIL % 3.5 % (0.0-4.0); HEMATOCRIT 40.1 % (39.0-51.0); HEMOGLOBIN 12.7 GM/DL (13.0-17.0); LYMPH % 30.1 % (9.0-44.0); LYMPHOCYTE # 1.6 TH/MM3 (1.0-4.8); MEAN CELL VOLUME 71.4 FL (80.0-100.0); MEAN CORPUSCULAR HEMOGLOBIN 22.6 PG (27.0-34.0); MEAN CORPUSCULAR HGB CONC 31.7 % (32.0-36.0); MEAN PLATELET VOLUME 8.8 FL (7.0-11.0); MONO % 11.5 % (0.0-8.0); MONOCYTE # 0.6 TH/MM3 (0-0.9); NEUT % 54.3 % (16.0-70.0); PLATELET COUNT 169 TH/MM3 (150-450); RED BLOOD COUNT 5.62 MIL/MM3 (4.50-5.90); RED CELL DISTRIBUTION WIDTH 15.4 % (11.6-17.2); WHITE BLOOD COUNT 5.2 TH/MM3 (4.0-11.0)
[2018-05-05 06:55] LABS: BICARBONATE 25.2 MEQ/L (21.0-32.0); BLOOD UREA NITROGEN 13 MG/DL (7-18); CALCIUM 8.4 MG/DL (8.5-10.1); CHLORIDE 107 MEQ/L (98-107); CHOLESTEROL 168 MG/DL (120-200); CREATININE 0.78 MG/DL (0.60-1.30); GLOMERULAR FILTRATION RATE 126 ML/MIN (>89); GLUCOSE,RANDOM 220 MG/DL (74-106); SODIUM (NA) 142 MEQ/L (136-145)
[2018-05-05 06:58] LABS: CHOLESTEROL/ HDL RATIO 5.83 RATIO; HDL CHOLESTEROL 28.8 MG/DL (40.0-60.0); LDL CHOLESTEROL 101 MG/DL (0-99); TRIGLYCERIDES 191 MG/DL (42-150)
--- NOTE | 2018-05-05 07:32 | EKG ---
Date Performed: 05/04/2018 Time Performed: 18:28:12 PTAGE: 52 years EKG: Sinus rhythm Leftward axis Right bundle branch block Inferior infarct - age undetermined Abnormal ECG PREVIOUS TRACING : 05/04/2018 02.05 DOCTOR: Quang Pavon Interpretating Date/Time 05/05/2018 07:29:28
[2018-05-05] MEDS: INSULIN NovoLIN REGULAR SUPPLEMENTAL SCALE SQ SCH ×4 (08:00→21:42)
[2018-05-05 08:15] LABS: BILIRUBIN, URINE NEG (NEG); BLOOD, URINE MOD (NEG); GLUCOSE,URINE >=500 mg/dL (NEG); KETONE, URINE NEG (NEG); NITRITE,URINE NEG (NEG); URINE COLOR YELLOW (YELLW/STRAW); URINE LEUKOCYTE ESTERASE NEG (NEG)
[2018-05-05] MEDS: SODIUM CHLORIDE 0.9% FLUSH 10 ML FLUSH IV FLUSH SCH ×2 (09:00→21:00)
[2018-05-05] MEDS: CLOPIDOGREL 75 MG TAB PO SCH (09:05)
[2018-05-05] MEDS: PANTOPRAZOLE SOD 20 MG DELAYED RELEASE TAB PO SCH ×2 (09:05→21:31)
[2018-05-05] MEDS: ASPIRIN 81 MG CHEW TAB PO SCH (09:05)
[2018-05-05] MEDS: METOPROLOL TARTRATE 25 MG TAB PO SCH ×2 (09:05→21:31)
[2018-05-05] MEDS: LISINOPRIL 5 MG TAB PO SCH (09:06)
--- NOTE | 2018-05-05 12:10 | HHI.PR ---
Subjective Remarks Patient reports he is feeling well. He denies any chest pain or shortness of breath. He had hematuria overnight. It is persisting this morning but is slightly improved. Objective Vitals Vital Signs Date Time Temp Pulse Resp B/P (MAP) Pulse Ox O2 Delivery O2 Flow Rate FiO2 05/05/18 11:40 98.4 72 18 134/84 (101) 98 05/05/18 07:30 98.6 75 16 129/71 (90) 100 05/05/18 06:00 130 05/05/18 05:00 130 05/05/18 04:00 70 05/05/18 03:00 97.9 72 18 124/66 (85) 99 05/05/18 03:00 72 05/05/18 02:00 65 05/05/18 01:00 72 05/05/18 00:00 76 05/04/18 23:00 98.0 76 18 131/72 (91) 99 05/04/18 23:00 76 05/04/18 22:00 80 05/04/18 21:00 76 05/04/18 20:00 97.8 71 18 149/68 (95) 98 05/04/18 20:00 71 05/04/18 19:00 70 05/04/18 18:00 72 05/04/18 17:00 68 05/04/18 16:00 69 05/04/18 15:48 98 Room Air I/O 05/04/18 05/04/18 05/04/18 05/05/18 05/05/18 05/05/18 07:00 15:00 23:00 07:00 15:00 23:00 Intake Total 2980 ml 550 ml Output Total 850 ml 1325 ml Balance 2130 ml -775 ml Intake Oral 480 ml 550 ml IV Total 2500 ml Output Urine Total 850 ml 1325 ml # Bowel Movements 0 Result Diagram: 05/05/1852305/05/18523 Objective Remarks GENERAL: This is a well-nourished, well-developed patient, in no apparent distress. CARDIOVASCULAR: Normal rate and regular rhythm without murmurs, gallops, or rubs. RESPIRATORY: Good respiratory efforts. Breath sounds equal and clear to auscultation bilaterally. GASTROINTESTINAL: Abdomen soft, non-tender, non-distended. Normal active bowel sounds MUSCULOSKELETAL: Extremities without cyanosis, or edema. NEURO: Alert & Oriented x4 to person, place, time, situation. Moves all ext x4 PSYCH: Appropriate mood and affect. A/P Problem List: (1) Non-ST elevation [place] (NSTEMI) ICD Code: I21.4 - Non-ST elevation (NSTEMI) myocardial infarction (2) Stented coronary artery ICD Code: Z95.5 - Presence of coronary angioplasty implant and graft (3) Hematuria ICD Code: R31.9 - Hematuria, unspecified (4) Chest pain ICD Code: R07.9 - Chest pain Status: Acute (5) Benign prostate hyperplasia ICD Code: N40.0 - Benign prostate hyperplasia Status: Acute Assessment and Plan 52-year-old male with: NSTEMI/CAD: History of CABG 5 -Cardiology following. Patient underwent heart catheterization with stent placement. - Continue aspirin, Plavix, metoprolol, lisinopril Gross hematuria: -Patient had a recent UTI treated 5 days ago Which likely caused some irritation. He was noted with heparin for heart catheterization. He also has a history of BPH, previously was taking medication but he stopped it on his own. No urinary obstruction at this point. We can continue to monitor. I started him on Flomax. - If not resolved by tomorrow, will consult Urology. He is advised to follow up with his outpatient urologist. Diabetes: sliding scale insulin with Accu-Chek Asthma: continue home dose inhalers. Discharge Planning Probable discharge tomorrow if hematuria resolves. Problem Qualifiers (1) Chest pain: Qualified Codes: R07.9 - Chest pain, unspecified Flores Ellis MD May 05, 2018 12:10
--- NOTE | 2018-05-05 13:13 | PD.CARD.PN ---
Subjective Subjective Remarks No CP or SOB, c/o gross hematuria Objective Medications Current Medications Medications (Trade) Dose Ordered Sig/Amos Route Start Time Stop Time Status Last Admin (NS Flush) 2 ml UNSCH PRN IV FLUSH 05/03/18 22:45 (NS Flush) 2 ml BID IV FLUSH 05/04/18 09:00 05/05/18 09:00 (Tylenol) 500 mg Q4H PRN PO 05/03/18 22:45 (Morphine Inj) 2 mg Q4H PRN IV PUSH 05/03/18 22:45 (Nitrostat Sl) 0.4 mg Q5M PRN SL 05/03/18 22:45 (Restoril) 15 mg HS PRN PO 05/03/18 22:45 (Lopressor) 12.5 mg Q12HR PO 05/04/18 21:00 05/05/18 09:05 (Symbicort 80-4.5 Mcg Inh) 1 puff Q12HR INH 05/04/18 21:00 (Neurontin) 300 mg HS PO 05/04/18 21:00 05/04/18 21:55 (Protonix) 20 mg BID PO 05/04/18 21:00 05/05/18 09:05 (D50w (Vial) Inj) 50 ml UNSCH PRN IV PUSH 05/04/18 09:30 (Glucagon Inj) 1 mg UNSCH PRN OTHER 05/04/18 09:30 (NovoLIN R SUPPLEMENTAL SCALE) 1 ACHS SLIDING SCALE SQ 05/04/18 12:00 05/05/18 08:00 (Aspirin Chew) 81 mg DAILY PO 05/05/18 09:00 05/05/18 09:05 (Plavix) 75 mg DAILY PO 05/05/18 09:00 05/05/18 09:05 (Prinivil) 2.5 mg DAILY PO 05/05/18 09:00 05/05/18 09:06 (Lipitor) 40 mg HS PO 05/04/18 21:00 05/04/18 21:55 (Pill Splitter) 1 ea UNSCH PRN OTHER 05/04/18 16:00 (Flomax) 0.4 mg DAILY PO 05/05/18 12:15 Vital Signs / I&O Vital Signs Date Time Temp Pulse Resp B/P (MAP) Pulse Ox O2 Delivery O2 Flow Rate FiO2 05/05/18 11:40 98.4 72 18 134/84 (101) 98 05/05/18 07:30 98.6 75 16 129/71 (90) 100 05/05/18 06:00 130 05/05/18 05:00 130 05/05/18 04:00 70 05/05/18 03:00 97.9 72 18 124/66 (85) 99 05/05/18 03:00 72 05/05/18 02:00 65 05/05/18 01:00 72 05/05/18 00:00 76 05/04/18 23:00 98.0 76 18 131/72 (91) 99 05/04/18 23:00 76 05/04/18 22:00 80 05/04/18 21:00 76 05/04/18 20:00 97.8 71 18 149/68 (95) 98 05/04/18 20:00 71 05/04/18 19:00 70 05/04/18 18:00 72 05/04/18 17:00 68 05/04/18 16:00 69 05/04/18 15:48 98 Room Air I/O 05/04/18 05/04/18 05/04/18 05/05/18 05/05/18 05/05/18 07:00 15:00 23:00 07:00 15:00 23:00 Intake Total 2980 ml 550 ml Output Total 850 ml 1325 ml Balance 2130 ml -775 ml Intake Oral 480 ml 550 ml IV Total 2500 ml Output Urine Total 850 ml 1325 ml # Bowel Movements 0 Physical Exam GENERAL: IN NAD. SKIN: Warm and dry. HEAD: Normocephalic. EYES: No scleral icterus. No injection or drainage. NECK: Supple, trachea midline. No JVD or lymphadenopathy. CARDIOVASCULAR: Regular rate and rhythm without murmurs, gallops, or rubs. RESPIRATORY: Breath sounds equal bilaterally. No accessory muscle use. GASTROINTESTINAL: Abdomen soft, non-tender, nondistended. MUSCULOSKELETAL: No cyanosis, or edema. Groin stable Laboratory Laboratory Tests Test 05/04/18 16:55 05/04/18 19:11 05/05/18 05:24 05/05/18 06:15 Activated Partial Thromboplast Time 103.2 SEC White Blood Count 4.8 TH/MM3 5.2 TH/MM3 Red Blood Count 5.68 MIL/MM3 5.62 MIL/MM3 Hemoglobin 12.7 GM/DL 12.7 GM/DL Hematocrit 40.5 % 40.1 % Mean Corpuscular Volume 71.2 FL 71.4 FL Mean Corpuscular Hemoglobin 22.3 PG 22.6 PG Mean Corpuscular Hemoglobin Concent 31.3 % 31.7 % Red Cell Distribution Width 15.3 % 15.4 % Platelet Count 179 TH/MM3 169 TH/MM3 Mean Platelet Volume 9.1 FL 8.8 FL Neutrophils (%) (Auto) 49.1 % 54.3 % Lymphocytes (%) (Auto) 35.9 % 30.1 % Monocytes (%) (Auto) 9.9 % 11.5 % Eosinophils (%) (Auto) 4.4 % 3.5 % Basophils (%) (Auto) 0.7 % 0.6 % Neutrophils # (Auto) 2.3 TH/MM3 2.8 TH/MM3 Lymphocytes # (Auto) 1.7 TH/MM3 1.6 TH/MM3 Monocytes # (Auto) 0.5 TH/MM3 0.6 TH/MM3 Eosinophils # (Auto) 0.2 TH/MM3 0.2 TH/MM3 Basophils # (Auto) 0.0 TH/MM3 0.0 TH/MM3 CBC Comment DIFF FINAL DIFF FINAL Differential Comment Blood Urea Nitrogen 13 MG/DL Creatinine 0.78 MG/DL Random Glucose 220 MG/DL Calcium Level 8.4 MG/DL Sodium Level 142 MEQ/L Potassium Level 3.8 MEQ/L Chloride Level 107 MEQ/L Carbon Dioxide Level 25.2 MEQ/L Anion Gap 10 MEQ/L Estimat Glomerular Filtration Rate 126 ML/MIN Total Creatine Kinase 139 U/L Creatine Kinase MB 2.3 NG/ML Triglycerides Level 191 MG/DL Cholesterol Level 168 MG/DL LDL Cholesterol 101 MG/DL HDL Cholesterol 28.8 MG/DL Cholesterol/HDL Ratio 5.83 RATIO Urine Color YELLOW Urine Turbidity CLEAR Urine pH 6.0 Urine Specific [place] 1.021 Urine Protein NEG mg/dL Urine Glucose (UA) >=500 mg/dL Urine Ketones NEG mg/dL Urine Occult Blood MOD Urine Nitrite NEG Urine Bilirubin NEG Urine Urobilinogen 2.0 mg/dL Urine Leukocyte Esterase NEG Urine RBC 78 /hpf Urine WBC 1 /hpf Microscopic Urinalysis Comment CULT NOT INDICATED Assessment and Plan Problem List: (1) Unstable angina ICD Codes: I20.0 - Unstable angina (2) Coronary artery disease ICD Codes: I25.9 - Coronary artery disease Status: Acute (3) S/P CABG (coronary artery bypass graft) ICD Codes: Z95.1 - S/P CABG (coronary artery bypass graft) Status: Acute (4) Stented coronary artery ICD Codes: Z95.5 - Presence of coronary angioplasty implant and graft Assessment and Plan No angina or CHF. C/o gross hematuria, recommend urology evaluation. Continue Plavix for minimum of 1 month and baby ASA indefinitely. Continue beta nehal and statin. Increase activity. Continue monitoring. Kaushal Singh MD May 05, 2018 13:13
[2018-05-05] MEDS: TAMSULOSIN HCL 0.4 MG CAP PO SCH (14:05)
[2018-05-05] MEDS: BUDESONIDE-FORMOTEROL 80/4.5 MCG INHALER INH SCH ×2 (21:00→21:31)
[2018-05-05] MEDS: ATORVASTATIN 40 MG TAB PO SCH (21:31)
[2018-05-05] MEDS: GABAPENTIN 300 MG CAP PO SCH (21:31)
[2018-05-06] VITALS (16 sets, daily range): BP systolic 114–128; BP diastolic 70–84; PULSE 64–87; RESP 16; TEMP 98.6; O2SAT 97–100
--- NOTE | 2018-05-06 09:06 | HHI.PR ---
Subjective Remarks Hematuria clearing up but had one small clot this morning. Spoke with Dr. Singh and he requested Urology evaluation prior to discharge. Objective Vitals Vital Signs Date Time Temp Pulse Resp B/P (MAP) Pulse Ox O2 Delivery O2 Flow Rate FiO2 05/06/18 07:00 98.6 75 16 124/84 (97) 99 05/06/18 06:24 72 16 97 05/06/18 06:00 66 05/06/18 05:00 72 05/06/18 04:00 65 05/06/18 02:00 64 05/06/18 01:00 66 05/06/18 00:00 73 05/06/18 00:00 69 16 128/79 (95) 97 05/06/18 00:00 66 05/05/18 23:00 78 05/05/18 22:00 70 05/05/18 21:00 80 05/05/18 20:05 81 05/05/18 20:00 90 05/05/18 20:00 97.7 81 16 109/74 (86) 97 05/05/18 19:00 72 05/05/18 18:00 76 05/05/18 17:00 78 05/05/18 16:00 72 05/05/18 15:00 79 05/05/18 15:00 98.6 78 18 114/70 (85) 99 05/05/18 14:00 74 05/05/18 13:00 70 05/05/18 12:00 78 05/05/18 11:40 98.4 72 18 134/84 (101) 98 05/05/18 11:00 74 05/05/18 10:00 82 I/O 05/05/18 05/05/18 05/05/18 05/06/18 05/06/18 05/06/18 07:00 15:00 23:00 07:00 15:00 23:00 Intake Total 1550 ml 1000 ml 36 ml Output Total 1325 ml 1240 ml 500 ml Balance 225 ml -240 ml -464 ml Intake Oral 550 ml 1000 ml 36 ml IV Total 1000 ml Output Urine Total 1325 ml 1240 ml 500 ml # Bowel Movements 0 Result Diagram: 05/05/1824 05/05/18 0524 Objective Remarks GENERAL: This is a well-nourished, well-developed patient, in no apparent distress. CARDIOVASCULAR: Normal rate and regular rhythm without murmurs, gallops, or rubs. RESPIRATORY: Good respiratory efforts. Breath sounds equal and clear to auscultation bilaterally. GASTROINTESTINAL: Abdomen soft, non-tender, non-distended. Normal active bowel sounds MUSCULOSKELETAL: Extremities without cyanosis, or edema. NEURO: Alert & Oriented x4 to person, place, time, situation. Moves all ext x4 PSYCH: Appropriate mood and affect. A/P Problem List: (1) Non-ST elevation [place] (NSTEMI) ICD Code: I21.4 - Non-ST elevation (NSTEMI) myocardial infarction (2) Stented coronary artery ICD Code: Z95.5 - Presence of coronary angioplasty implant and graft (3) Hematuria ICD Code: R31.9 - Hematuria, unspecified (4) Chest pain ICD Code: R07.9 - Chest pain Status: Acute (5) Benign prostate hyperplasia ICD Code: N40.0 - Benign prostate hyperplasia Status: Acute Assessment and Plan 52-year-old male with: NSTEMI/CAD: History of CABG 5 -Cardiology following. Patient underwent heart catheterization with stent placement. - Continue aspirin, Plavix, metoprolol, lisinopril Gross hematuria: Improving but not resolved - Patient had a recent UTI treated 5 days ago Which likely caused some irritation. He was loaded with heparin for heart catheterization. He also has a history of BPH, previously was taking medication but he stopped it on his own. No urinary obstruction at this point. - I started Flomax yesterday. Will obtain renal/bladder US - Consult Urology. Diabetes: sliding scale insulin with Accu-Chek Asthma: continue home dose inhalers. Discharge Planning Awaiting Urology evaluation. Problem Qualifiers (1) Chest pain: Qualified Codes: R07.9 - Chest pain, unspecified Flores Ellis MD May 06, 2018 09:06
[2018-05-06] MEDS ORDERED: ASPI81 PO (10:02)
[2018-05-06] MEDS ORDERED: PLAV75TA29 PO (10:02)
[2018-05-06] MEDS ORDERED: LISI-519 PO (10:02)
[2018-05-06] MEDS ORDERED: ATOR40TA16 PO (10:02)
[2018-05-06] MEDS ORDERED: METO25TA3 PO (10:02)
--- NOTE | 2018-05-06 10:05 | HHI.DCPOC ---
Discharge Care Plan Diagnosis: (1) Non-ST elevation [place] (NSTEMI) (2) Hematuria (3) Coronary artery disease (4) Diabetes Goals to Promote Your Health * To prevent worsening of your condition and complications * To maintain your health at the optimal level Directions to Meet Your Goals Take your medications as prescribed Follow your dietary instruction Follow activity as directed Keep your appointments as scheduled Take your immunizations and boosters as scheduled If your symptoms worsen call your PCP, if no PCP go to Urgent Care Center or Emergency Room Smoking is Dangerous to Your Health. Avoid second hand smoke Call the 24-hour hour crisis hotline for domestic abuse at Flores Ellis MD May 06, 2018 10:05
[2018-05-06] MEDS: INSULIN NovoLIN REGULAR SUPPLEMENTAL SCALE SQ SCH ×2 (10:45→14:06)
[2018-05-06] MEDS: LISINOPRIL 5 MG TAB PO SCH (10:46)
[2018-05-06] MEDS: PANTOPRAZOLE SOD 20 MG DELAYED RELEASE TAB PO SCH (10:46)
[2018-05-06] MEDS: METOPROLOL TARTRATE 25 MG TAB PO SCH (10:46)
[2018-05-06] MEDS: ASPIRIN 81 MG CHEW TAB PO SCH (10:46)
[2018-05-06] MEDS: TAMSULOSIN HCL 0.4 MG CAP PO SCH (10:47)
[2018-05-06] MEDS: CLOPIDOGREL 75 MG TAB PO SCH (10:47)
[2018-05-06] MEDS: SODIUM CHLORIDE 0.9% FLUSH 10 ML FLUSH IV FLUSH SCH (10:47)
--- NOTE | 2018-05-06 11:18 | PD.CARD.PN ---
Subjective Subjective Remarks No CP or SOB, no recurrent hematuria Objective Medications Current Medications Medications (Trade) Dose Ordered Sig/Amos Route Start Time Stop Time Status Last Admin (NS Flush) 2 ml UNSCH PRN IV FLUSH 05/03/18 22:45 (NS Flush) 2 ml BID IV FLUSH 05/04/18 09:00 05/06/18 10:47 (Tylenol) 500 mg Q4H PRN PO 05/03/18 22:45 (Morphine Inj) 2 mg Q4H PRN IV PUSH 05/03/18 22:45 (Nitrostat Sl) 0.4 mg Q5M PRN SL 05/03/18 22:45 (Restoril) 15 mg HS PRN PO 05/03/18 22:45 (Lopressor) 12.5 mg Q12HR PO 05/04/18 21:00 05/06/18 10:46 (Symbicort 80-4.5 Mcg Inh) 1 puff Q12HR INH 05/04/18 21:00 05/05/18 21:00 (Neurontin) 300 mg HS PO 05/04/18 21:00 05/05/18 21:31 (Protonix) 20 mg BID PO 05/04/18 21:00 05/06/18 10:46 (D50w (Vial) Inj) 50 ml UNSCH PRN IV PUSH 05/04/18 09:30 (Glucagon Inj) 1 mg UNSCH PRN OTHER 05/04/18 09:30 (NovoLIN R SUPPLEMENTAL SCALE) 1 ACHS SLIDING SCALE SQ 05/04/18 12:00 05/06/18 10:45 (Aspirin Chew) 81 mg DAILY PO 05/05/18 09:00 05/06/18 10:46 (Plavix) 75 mg DAILY PO 05/05/18 09:00 05/06/18 10:47 (Prinivil) 2.5 mg DAILY PO 05/05/18 09:00 05/06/18 10:46 (Lipitor) 40 mg HS PO 05/04/18 21:00 05/05/18 21:31 (Pill Splitter) 1 ea UNSCH PRN OTHER 05/04/18 16:00 (Flomax) 0.4 mg DAILY PO 05/05/18 12:15 05/06/18 10:47 Vital Signs / I&O Vital Signs Date Time Temp Pulse Resp B/P (MAP) Pulse Ox O2 Delivery O2 Flow Rate FiO2 05/06/18 07:00 98.6 75 16 124/84 (97) 99 05/06/18 06:24 72 16 97 05/06/18 06:00 66 05/06/18 05:00 72 05/06/18 04:00 65 05/06/18 02:00 64 05/06/18 01:00 66 05/06/18 00:00 73 05/06/18 00:00 69 16 128/79 (95) 97 05/06/18 00:00 66 05/05/18 23:00 78 05/05/18 22:00 70 05/05/18 21:00 80 05/05/18 20:05 81 05/05/18 20:00 90 05/05/18 20:00 97.7 81 16 109/74 (86) 97 05/05/18 19:00 72 05/05/18 18:00 76 05/05/18 17:00 78 05/05/18 16:00 72 05/05/18 15:00 79 05/05/18 15:00 98.6 78 18 114/70 (85) 99 05/05/18 14:00 74 05/05/18 13:00 70 05/05/18 12:00 78 05/05/18 11:40 98.4 72 18 134/84 (101) 98 I/O 05/05/18 05/05/18 05/05/18 05/06/18 05/06/18 05/06/18 07:00 15:00 23:00 07:00 15:00 23:00 Intake Total 1550 ml 1000 ml 36 ml Output Total 1325 ml 1240 ml 500 ml Balance 225 ml -240 ml -464 ml Intake Oral 550 ml 1000 ml 36 ml IV Total 1000 ml Output Urine Total 1325 ml 1240 ml 500 ml # Bowel Movements 0 Physical Exam GENERAL: IN NAD. SKIN: Warm and dry. HEAD: Normocephalic. EYES: No scleral icterus. No injection or drainage. NECK: Supple, trachea midline. No JVD or lymphadenopathy. CARDIOVASCULAR: Regular rate and rhythm without murmurs, gallops, or rubs. RESPIRATORY: Breath sounds equal bilaterally. No accessory muscle use. GASTROINTESTINAL: Abdomen soft, non-tender, nondistended. MUSCULOSKELETAL: No cyanosis, or edema. Groin stable Assessment and Plan Problem List: (1) Unstable angina ICD Codes: I20.0 - Unstable angina (2) Coronary artery disease ICD Codes: I25.9 - Coronary artery disease Status: Acute (3) S/P CABG (coronary artery bypass graft) ICD Codes: Z95.1 - S/P CABG (coronary artery bypass graft) Status: Acute (4) Stented coronary artery ICD Codes: Z95.5 - Presence of coronary angioplasty implant and graft Assessment and Plan No angina or CHF. Gross hematuria after PCI, possibly related to recent UTI; recommend urology evaluation. Continue Plavix for minimum of 1 month ( preferably 3 months) and baby ASA indefinitely. Continue beta nehal and statin. Increase activity. Continue monitoring. OK to discharge home once seen by urology. Kaushal Singh MD May 06, 2018 11:18
--- NOTE | 2018-05-06 12:52 | RADRPT ---
EXAM DATE: 05/06/2018 12:45 PM EDT AGE/SEX: 52 years / Male INDICATIONS: Hematuria. CLINICAL DATA: This is the patient's initial encounter. Patient reports that signs and symptoms have been present for 2 days and indicates a pain score of 0/10. MEDICAL/SURGICAL HISTORY: Hypercholesterolemia. Hypertension. Gastroesophageal reflux disease . Left arm numbness. Hyperlipidemia. Asthma. Arthritis. Diabetes. CABG. Cholecystectomy. Cardiac c atheterization. Jaw surgery. Rib surgery. Prostate surgery. [place] [facility] [place]. [facility], CT ABDOMEN & PELVIS W CONTRAST , 09/05/2016. . MEASUREMENTS: Right Kidney:__12.0 x 4.9 x 5.5 cm Left Kidney:__10.5 x 4.5 x 6.1 cm FINDINGS: Right Kidney: Normal echotexture and cortical thickness. No mass or hydronephrosis. Left Kidney: Normal echotexture and cortical thickness. No mass or hydronephrosis. Bladder: Urinary bladder is decompressed. However, there is a mild degree of wall thickening suspecte d. Other: None. CONCLUSION: 1. There is likely a mild degree of a circumferential wall thickening of the urinary bladder althoug h the bladder is incompletely distended. 2. Normal ultrasound appearance of the kidneys. Electronically signed by: Jose Luis Donis MD 05/06/2018 12:50 PM EDT
--- NOTE | 2018-05-06 14:00 | PD.CONS ---
HPI Service Urology Consult Requested By Dr Breen Reason for Consult Hematuria Primary Care Physician Everton Tello MD Diagnosis: (1) Non-ST elevation [place] (NSTEMI) ICD Code: I21.4 - Non-ST elevation (NSTEMI) myocardial infarction (2) Stented coronary artery ICD Code: Z95.5 - Presence of coronary angioplasty implant and graft (3) Hematuria ICD Code: R31.9 - Hematuria, unspecified (4) Chest pain ICD Code: R07.9 - Chest pain (5) Benign prostate hyperplasia ICD Code: N40.0 - Benign prostate hyperplasia History of Present Illness 52y o M with cardiac history, s/p CABG x 5 before, came recently with chest pain and SOB. underwent cardiac cath and stent placement, developed hematuria after procedure which is resolving now. no other c/o. He is a pt of Dr Nunez and sees him for BPH Review of Systems Except as stated in HPI: all other systems reviewed are Neg Past Family Social History Past Medical History as in primary team note Past Surgical History as in primary team note Allergies: Coded Allergies: grass pollen (Unverified Allergy, Mild, ITCH, SNEEZE, 05/03/18) house dust (Unverified Allergy, Mild, ITCH, SNEEZE, 05/03/18) Family History as in primary team note Social History as in primary team note Physical Exam Vital Signs Date Time Temp Pulse Resp B/P (MAP) Pulse Ox O2 Delivery O2 Flow Rate FiO2 05/06/18 07:00 98.6 75 16 124/84 (97) 99 05/06/18 06:24 72 16 97 05/06/18 06:00 66 05/06/18 05:00 72 05/06/18 04:00 65 05/06/18 02:00 64 05/06/18 01:00 66 05/06/18 00:00 73 05/06/18 00:00 69 16 128/79 (95) 97 05/06/18 00:00 66 05/05/18 23:00 78 05/05/18 22:00 70 05/05/18 21:00 80 05/05/18 20:05 81 05/05/18 20:00 90 05/05/18 20:00 97.7 81 16 109/74 (86) 97 05/05/18 19:00 72 05/05/18 18:00 76 05/05/18 17:00 78 05/05/18 16:00 72 05/05/18 15:00 79 05/05/18 15:00 98.6 78 18 114/70 (85) 99 05/05/18 14:00 74 Physical Exam GENERAL: This is a well-nourished, well-developed patient, in no apparent distress. SKIN: No rashes, ecchymoses or lesions. Cool and dry. HEAD: Atraumatic. Normocephalic. NECK: Trachea midline. No JVD or lymphadenopathy. Supple, nontender, no meningeal signs. CARDIOVASCULAR: Regular rate and rhythm without murmurs, RESPIRATORY: Clear to auscultation. Breath sounds equal bilaterally. No wheezes , rales, or rhonchi. GASTROINTESTINAL: Abdomen soft, non-tender, nondistended. . GENITOURINARY:normal exam. No CVAT MUSCULOSKELETAL: Extremities without clubbing, cyanosis, or edema NEUROLOGICAL: Awake and alert. Lab results reviewed: Yes Result Diagram: 05/05/1852305/05/18523 Personally reviewed images: Yes Imaging Last Impressions Renal Ultrasound 05/06/18 Signed Impressions: CONCLUSION: 1. There is likely a mild degree of a circumferential wall thickening of the u rinary bladder although the bladder is incompletely distended. 2. Normal ultrasound appearance of the kidneys. Chest X-Ray 05/03/182001 Signed Impressions: CONCLUSION: No active disease. Postoperative median sternotomy. Abdomen/Pelvis CT 05/03/18 Signed Impressions: CONCLUSION: 1. No acute findings. Mild constipation. Mild fatty liver. Assessment and Plan Assessment and Plan 52y.o M with hematuria post cardiac procedure Its resolving now - No additional intervention needed - Continue care as per primary team - From urology stand point he can be d/c if ok by cardiology - He can see Dr Nunez in few weeks as an outpt. Discussed Condition With Dr Delfin MAJANO attending who agrees with this plan Problem Qualifiers (1) Chest pain: Qualified Codes: R07.9 - Chest pain, unspecified Steve Rutherford May 06, 2018 14:00
[2018-05-06] MEDS ORDERED: TAMS5CAP PO (15:04)
--- NOTE | 2018-05-06 15:04 | HHI.DS ---
Discharge Summary Admission Date May 05, 2018 at 12:11 Discharge Date: May 06, 2018 Admitting Diagnosis CHEST PAIN (1) Non-ST elevation [place] (NSTEMI) ICD Code: I21.4 - Non-ST elevation (NSTEMI) myocardial infarction (2) Stented coronary artery ICD Code: Z95.5 - Presence of coronary angioplasty implant and graft (3) Hematuria ICD Code: R31.9 - Hematuria, unspecified (4) Chest pain ICD Code: R07.9 - Chest pain Status: Acute (5) Benign prostate hyperplasia ICD Code: N40.0 - Benign prostate hyperplasia Status: Acute Procedures Heart cath with stent placement. Brief History - From Admission HPI from the admitting physician: 52-year-old black male being admitted for angina. Patient was in his usual state of health until about a few days ago when he says his intermittent somewhat chronic chest pain began to get substantially worse as he was mowing the lawn and was associated with profound shortness of breath which was new to him. Says he had to stop walking multiple times in the midst of his lawnmowing to catch his breath. Says his chest pain was aching in nature and was 6/10 at its worst. Says he took his albuterol inhaler treatment but did not provide him any relief for at least 30 minutes. Patient says he takes aspirin almost daily. But he says that he used to take metoprolol up until about a year or so ago, is not clear as to whether his physician deliberately discontinued him or the patient himself misunderstood and stopped taking it or asking for refills. Patient does have a history of a CABG a few years ago. Patient does say he has chronic heartburn as well as chronic abdominal discomfort/pain. In the emergency department patient had an EKG done which I independently reviewed and shows no clear signs for acute ischemia or infarction but possible right bundle branch block. Troponins eventually did become mildly elevated. CBC/BMP: 05/05/18 0524 05/05/18 0524 Significant Findings Laboratory Tests Test 05/03/18 20:00 05/03/18 22:30 05/04/18 00:22 05/04/18 02:11 Mean Corpuscular Volume 71.2 FL (80.0-100.0) Mean Corpuscular Hemoglobin 23.4 PG (27.0-34.0) Monocytes (%) (Auto) 10.6 % (0.0-8.0) Random Glucose 228 MG/DL (74-106) Aspartate Amino Transf (AST/SGOT) 12 U/L (15-37) Estimat Glomerular Filtration Rate 85 ML/MIN (>89) Urine Ketones TRACE mg/dL (NEG) Troponin I 0.07 NG/ML (0.02-0.05) 0.06 NG/ML (0.02-0.05) Test 05/04/18 10:45 05/04/18 16:55 05/04/18 19:11 05/05/18 05:24 Mean Corpuscular Volume 70.9 FL (80.0-100.0) 71.2 FL (80.0-100.0) 71.4 FL (80.0-100.0) Mean Corpuscular Hemoglobin 22.8 PG (27.0-34.0) 22.3 PG (27.0-34.0) 22.6 PG (27.0-34.0) Activated Partial Thromboplast Time 103.2 SEC (24.3-30.1) Hemoglobin 12.7 GM/DL (13.0-17.0) 12.7 GM/DL (13.0-17.0) Mean Corpuscular Hemoglobin Concent 31.3 % (32.0-36.0) 31.7 % (32.0-36.0) Monocytes (%) (Auto) 9.9 % (0.0-8.0) 11.5 % (0.0-8.0) Eosinophils (%) (Auto) 4.4 % (0.0-4.0) Random Glucose 220 MG/DL (74-106) Calcium Level 8.4 MG/DL (8.5-10.1) Triglycerides Level 191 MG/DL (42-150) LDL Cholesterol 101 MG/DL (0-99) HDL Cholesterol 28.8 MG/DL (40.0-60.0) Test 05/05/18 06:15 Urine Occult Blood MOD (NEG) Urine Urobilinogen 2.0 mg/dL (LESS THAN 2) Urine RBC 78 /hpf (0-3) Imaging Last Impressions Renal Ultrasound 05/06/18 Signed Impressions: CONCLUSION: 1. There is likely a mild degree of a circumferential wall thickening of the u rinary bladder although the bladder is incompletely distended. 2. Normal ultrasound appearance of the kidneys. Chest X-Ray 05/03/182001 Signed Impressions: CONCLUSION: No active disease. Postoperative median sternotomy. Abdomen/Pelvis CT 05/03/18 Signed Impressions: CONCLUSION: 1. No acute findings. Mild constipation. Mild fatty liver. PE at Discharge GENERAL: This is a well-nourished, well-developed patient, in no apparent distress. CARDIOVASCULAR: Normal rate and regular rhythm without murmurs, gallops, or rubs. RESPIRATORY: Good respiratory efforts. Breath sounds equal and clear to auscultation bilaterally. GASTROINTESTINAL: Abdomen soft, non-tender, non-distended. Normal active bowel sounds MUSCULOSKELETAL: Extremities without cyanosis, or edema. NEURO: Alert & Oriented x4 to person, place, time, situation. Moves all ext x4 PSYCH: Appropriate mood and affect. Hospital Course 52-year-old male with: NSTEMI/CAD: History of CABG 5 -Cardiology following. Patient underwent heart catheterization with stent placement. - Continue aspirin, Plavix, metoprolol, lisinopril Gross hematuria: resolving - Patient had a recent UTI treated 5 days ago Which likely caused some irritation. He was loaded with heparin for heart catheterization. He also has a history of BPH, previously was taking medication but he stopped it on his own. No urinary obstruction at this point. - Patient started on Flomax. . Renal/bladder US shows thickened gallbladder. - Urology consulted and advised outpatient follow up. Diabetes: Continue home dose insulin Asthma: continue home dose inhalers. Pt Condition on Discharge: Good Discharge Disposition: Discharge Home Discharge Time: <= 30 minutes Discharge Instructions DIET: Follow Instructions for: Heart Healthy Diet Activities you can perform: Regular-No Restrictions Follow up Referrals: Cardiology with Kaushal Singh MD PCP Follow-up New Medications: Tamsulosin (Flomax) 0.4 Mg Cap 0.4 MG PO HS for Manage Prostate Problems, #30 CAP 0 Refills Aspirin (Tgt Aspirin) 81 Mg Chw 81 MG PO DAILY, #30 EA Clopidogrel (Plavix) 75 Mg Tab 75 MG PO DAILY, #30 TAB Lisinopril (Lisinopril) 5 Mg Tab 2.5 MG PO DAILY, #30 TAB Metoprolol Tartrate (Metoprolol Tartrate) 25 Mg Tab 12.5 MG PO Q12HR, #60 TAB Changed Medications: Atorvastatin (Atorvastatin) 40 Mg Tab 40 MG PO HS for Cholesterol Management, #30 TAB 0 Refills (Changed from: Atorvastatin 20 Mg Tab 20 Mg PO DAILY Cholesterol Management #30 TAB Ref 0) Continued Medications: Albuterol 6.7 GM Inh (Proventil Hfa 6.7 GM Inh) 90 Mcg/Act Aer 2 PUFF INH Q4H PRN for SHORTNESS OF BREATH, INHALER 0 Refills Budesonide-Formoterol Inh (Symbicort Inh) 80-4.5 Mcg/Act Aero 1 PUFF INH Q12HR for Asthma Management, #1 INHALER 0 Refills Cetirizine (Cetirizine) 10 Mg Tab 10 MG PO DAILY for Allergies, TAB 0 Refills Gabapentin (Gabapentin) 300 Mg Cap 300 MG PO HS, #30 CAP 0 Refills Glipizide (Glipizide) 5 Mg Tab 5 MG PO BIDAC for Blood Sugar Management for 14 Days, #60 TAB 0 Refills Take 10mg in the morning and 5mg at bedtime. Take 30 minutes before a meal Insulin Glargine Inj (Lantus Inj) 1,000 Unit/10 Ml Vial 30 UNITS SQ HS for Blood Sugar Management, VIAL 0 Refills Omeprazole (Omeprazole) 20 Mg Tab 20 MG PO BID, #30 TAB 0 Refills Flores Ellis MD May 06, 2018 15:04
== END 2018-05-06 17:07 | disposition home or self-care (01) | DRG 247 ==
LOC: NEPC 19:10 → NEDA 22:36 → NEPGCP 23:18 → HCIS 05-04 14:05 → OBSVTOIN 05-05 12:11
PROVIDERS: ADMIT Hospitalist; ATTEND Hospitalist
PROC: 4A023N7 Measurement of Cardiac Sampling and Pressure, Left Heart, Percutaneous Approach (ICD-10-PCS; 2018-05-04)
PROC: B2151ZZ Fluoroscopy of Left Heart using Low Osmolar Contrast (ICD-10-PCS; 2018-05-04)
PROC: B2111ZZ Fluoroscopy of Multiple Coronary Arteries using Low Osmolar Contrast (ICD-10-PCS; 2018-05-04)
PROC: B2121ZZ Fluoroscopy of Single Coronary Artery Bypass Graft using Low Osmolar Contrast (ICD-10-PCS; 2018-05-04)
PROC: B2181ZZ Fluoroscopy of Left Internal Mammary Bypass Graft using Low Osmolar Contrast (ICD-10-PCS; 2018-05-04)
PROC: 027034Z Dilation of Coronary Artery, One Artery with Drug-eluting Intraluminal Device, Percutaneous Approach (ICD-10-PCS; principal; 2018-05-04 13:30)
DX: I21.4 Non-ST elevation (NSTEMI) myocardial infarction (principal); E11.9 Type 2 diabetes mellitus without complications; I25.700 Atherosclerosis of coronary artery bypass graft(s), unspecified, with unstable angina pectoris; N40.0 Benign prostatic hyperplasia without lower urinary tract symptoms; J45.909 Unspecified asthma, uncomplicated; R31.0 Gross hematuria; Z95.1 Presence of aortocoronary bypass graft
CPT/HCPCS: 71045; 74177; 76775; 80048; 80053; 80061; 81001; 82550; 82552; 82948; 83690; 83735; 84484; 85002; 85025; 85027; 85610; 85730; 92928; 93005; 93459; 96360; 96361; 99152; 99153; C1725; C1760; C1769; C1876; C1887; C1893; G0269; G0378; J1644; J2250; J3010; J7030; Q9967

== ENCOUNTER 2018-05-11 04:15 | Observation (INO) | payer SELFPAY ==
[~2018-05-11] VITALS: Ht 170.2 cm; Wt 82.0 kg
[~2018-05-11 04:15] MED LIST changes: +ASPI81 PO; -ATOR20TA15 PO; +ATOR40TA16 PO; -CEPH-460 PO; +LISI-519 PO; +METO25TA3 PO; +PLAV75TA29 PO; +TAMS5CAP PO
[2018-05-11 04:25] VITALS: BP 129/70; PULSE 83; RESP 16; TEMP 98.2; O2SAT 98
[2018-05-11] MEDS ORDERED: SODIUM CHLORIDE 0.9% FLUSH 10 ML FLUSH IVF PRN (04:45)
[2018-05-11] MEDS ORDERED: METF500T PO (04:50)
[2018-05-11 04:51] VITALS: BP 148/81; PULSE 76; RESP 16; O2SAT 99
[2018-05-11 04:52] VITALS: BP 142/71; PULSE 77; RESP 16; O2SAT 98
--- NOTE | 2018-05-11 04:58 | PD ---
HPI Chief Complaint: Chest Pain Time Seen by Provider: 04:38 Travel History International Travel<30 days: No Contact w/Intl Traveler<30days: No Traveled to known affect area: No History of Present Illness HPI The patient is a 52 year old male who presents to the [facility] emergency department with a history of chest pain that began around 3 PM yesterday while he was sitting and resting. The patient reports that he was recently discharged from the hospital after cardiac catheterization with stent placement. He reports that he has been taking his medication as prescribed. He did take a low-dose aspirin yesterday. The patient denies taking any nitroglycerin for the pain he is experiencing currently. The patient reports that the pain comes and goes. He reports the pain is sharp in character and present at the border of the left side of his sternum. He reports that the pain has been more persistent this evening. He reports that now he is also having radiation to the left arm associated with nausea. He denies having any vomiting. He denies having any shortness of breath. He reports that he had similar chest pain prior to being admitted to the hospital this last hospitalization. On review of systems otherwise, the patient denies having any known recent fevers, cough or congestion,neck pain, abdominal pain, urinary symptoms, or neurologic symptoms. The patient reports that he did have one episode of diarrhea earlier today. [facility] Past Medical History Narrative Medical The patient's past medical history is significant for diabetes mellitus, coronary artery disease, benign prostatic hypertrophy, chronic abdominal pain, asthma. Arthritis: Yes Asthma: Yes Autoimmune Disease: No Blood Disorders: No Anxiety: No Depression: No Heart Rhythm Problems: Yes (BBB LT) Cancer: No Cardiac Catheterization: Yes Cardiovascular Problems: Yes (CABG) High Cholesterol: Yes Chemotherapy: No Chest Pain: Yes Congestive Heart Failure: No COPD: No Cerebrovascular Accident: No Coronary Artery Disease: Yes Diabetes: Yes Patient Takes Glucophage: No Diminished Hearing: No Endocrine: Yes Gastrointestinal Disorders: Yes (GERD) GERD: Yes Genitourinary: Yes (PROSTATE, ERECTILE DYS.) Headaches: Yes Hepatitis: No Hiatal Hernia: No Heparin Induced Thrombocytopen: No Hypertension: Yes Immune Disorder: No Implanted Vascular Access Dvce: No Kidney Stones: No Medical other: No Musculoskeletal: No Neurologic: No Psychiatric: No Reproductive: No Respiratory: Yes (Asthma) Immunizations Current: Yes Migraines: No Myocardial Infarction: No Radiation Therapy: No Renal Failure: No Sickle Cell Disease: No Sleep Apnea: No Thyroid Disease: No Ulcer: Yes Tetanus Vaccination: > 5 Years Influenza Vaccination: Yes PNEUMOCCOCAL Vaccine (Year): 3 Past Surgical History Narrative Surgical The patient's past surgical history is significant for coronary artery bypass grafting, cholecystectomy, and prostate surgery Abdominal Surgery: No AICD: No Cardiac Surgery: Yes (BYPASS - APRIL 05, 2013) Cholecystectomy: Yes Coronary Artery Bypass Graft: Yes (2012) Ear Surgery: No Endocrine Surgery: No Eye Surgery: No Genitourinary Surgery: Yes (PROSTATE PROBLEMS) Gynecologic Surgery: No Insulin Pump: No Joint Replacement: No Neurologic Surgery: No Pacemaker: No Thoracic Surgery: No Other Surgery: Yes (bypass, prostate) Family History Family Myocardial Infarction: Yes Social History Alcohol Use: Yes (VERY RARE) Tobacco Use: No Substance Use: No Allergies-Medications (Allergen,Severity, Reaction): Coded Allergies: grass pollen (Unverified Allergy, Mild, ITCH, SNEEZE, 05/11/18) house dust (Unverified Allergy, Mild, ITCH, SNEEZE, 05/11/18) Reported Meds & Prescriptions Reported Meds & Active Scripts Active Isosorbide Mononitrate ER (Isosorbide Mononitrate) 30 Mg Prince 30 Mg PO DAILY Flomax (Tamsulosin HCl) 0.4 Mg Cap 0.4 Mg PO HS Tgt Aspirin (Aspirin) 81 Mg Chw 81 Mg PO DAILY Lisinopril 5 Mg Tab 2.5 Mg PO DAILY Metoprolol Tartrate 25 Mg Tab 12.5 Mg PO Q12HR Plavix (Clopidogrel Bisulfate) 75 Mg Tab 75 Mg PO DAILY Atorvastatin (Atorvastatin Calcium) 40 Mg Tab 40 Mg PO HS Glipizide 5 Mg Tab 5 Mg PO BIDAC 14 Days Take 10mg in the morning and 5mg at bedtime. Take 30 minutes before a meal Reported Metformin (Metformin HCl) 500 Mg Tab 500 Mg PO BIDPC Lantus Inj (Insulin Glargine) 1,000 Unit/10 Ml Vial 30 Units SQ HS Omeprazole 20 Mg Tab 20 Mg PO BID Glipizide 10 Mg Tab 10 Mg PO DAILY Take 30 minutes before a meal Glipizide 5 Mg Tab 5 Mg PO HS Take 30 minutes before a meal Gabapentin 300 Mg Cap 300 Mg PO HS Papaverine-Phentolamine M 30-1 mg/ml (Papaverine-Phentolamine) 30 Mg-1 Mg/Ml (1 Ml) Mae 0.1 Ml UR PRN Cetirizine (Cetirizine HCl) 10 Mg Tab 10 Mg PO DAILY Symbicort Inh (Budesonide/Formoterol Fumarate) 80-4.5 Mcg/Act Aero 1 Puff INH Q12HR Proventil Hfa 6.7 GM Inh (Albuterol Sulfate) 90 Mcg/Act Aer 2 Puff INH Q4H PRN Review of Systems Except as stated in HPI: all other systems reviewed are Neg General / Constitutional: No: Fever Eyes: No: Visual changes HENT: No: Headaches Cardiovascular: Positive: Chest Pain or Discomfort, Claudication, No: Diaphoresis Respiratory: No: Shortness of Breath Gastrointestinal: Positive: Nausea, Diarrhea, Changes in Bowel Habits, No: Vomiting, Abdominal Pain, Indigestion, Loss of Appetite Genitourinary: No: Dysuria Musculoskeletal: No: Pain Skin: No Rash Neurologic: No: Weakness, Focal Abnormalities, Change in Mentation, Slurred Speech, Sensory Disturbance Psychiatric: No: Depression Endocrine: No: Polydipsia Hematologic/Lymphatic: No: Easy Bruising Physical Exam Narrative General: The patient is a well-developed well-nourished male in no acute distress. Head and Neck exam: Head is normocephalic atraumatic. Eyes: EOMI, pupils are equal round and reactive to light. Nose: Midline septum with pink mucous membranes Mouth: Dentition unremarkable. Moist mucus membranes. Posterior oropharynx is not erythematous. No tonsillar hypertrophy. Uvula midline. Airway patent. Neck: No palpable lymphadenopathy. No nuchal rigidity. No thyromegaly. Cardiovascular: Regular rate and rhythm without murmurs, gallops, or rubs. No pulse deficit to the extremities on simultaneous auscultation and palpation of his radial artery. No chest wall tenderness on palpation. Lungs: Clear to auscultation bilaterally. No wheezes, rhonchi, or rales. Abdomen: Soft, with reported discomfort on palpation just above the umbilicus on the left side, no palpable hernia, no other tenderness on palpation of the other quadrants of the abdomen. No guarding, rebound, or rigidity. Normal bowel sounds are audible. No tenderness on palpation of McBurney's point. Extremities: No clubbing, cyanosis, or edema. 2+ pulses in all 4 extremities. No calf tenderness on palpation. Back: No costovertebral angle tenderness to palpation. Neurologic Exam: Grossly nonfocal. Skin Exam: No rash noted. Intact skin that is warm and dry. Data Data Last Documented VS Vital Signs Date Time Temp Pulse Resp B/P (MAP) Pulse Ox O2 Delivery O2 Flow Rate FiO2 05/11/18 04:52 77 16 142/71 (94) 98 Room Air 05/11/18 04:25 98.2 Orders Orders Electrocardiogram (05/11/18 04:38) B-Type Natriuretic Peptide (05/11/18 04:38) Ckmb (Isoenzyme) Profile (05/11/18 04:38) Complete Blood Count With Diff (05/11/18 04:38) Comprehensive Metabolic Panel (05/11/18 04:38) Magnesium (Mg) (05/11/18 04:38) Prothrombin Time / Inr (Pt) (05/11/18 04:38) Act Partial Throm Time (Ptt) (05/11/18 04:38) Troponin I (05/11/18 04:38) Lipase (05/11/18 04:38) Ecg Monitoring (05/11/18 04:38) Bilateral Bp Monitoring (05/11/18 04:38) Iv Access Insert/Monitor (05/11/18 04:38) Oximetry (05/11/18 04:38) Oxygen Administration (05/11/18 04:38) Sodium Chloride 0.9% Flush (Ns Flush) (05/11/18 04:45) Chest, Pa & Lat (05/11/18 04:38) Aspirin Chew (Aspirin Chew) (05/11/18 05:00) Nitroglycerin 2% Oint (Nitroglycerin 2% (05/11/18 05:00) Nitroglycerin Sl (Nitrostat Sl) (05/11/18 05:00) Sodium Chlorid 0.9% 500 Ml Inj (Ns 500 M (05/11/18 05:00) Prochlorperazine Inj (Compazine Inj) (05/11/18 05:00) CKMB (05/11/18 04:40) CKMB% (05/11/18 04:40) Morphine Inj (Morphine Inj) (05/11/18 05:45) Admit Order (Ed Use Only) (05/11/18 06:06) Labs Laboratory Tests Test 05/11/18 04:40 White Blood Count 5.4 TH/MM3 Red Blood Count 5.58 MIL/MM3 Hemoglobin 12.7 GM/DL Hematocrit 39.9 % Mean Corpuscular Volume 71.6 FL Mean Corpuscular Hemoglobin 22.8 PG Mean Corpuscular Hemoglobin Concent 31.9 % Red Cell Distribution Width 15.3 % Platelet Count 177 TH/MM3 Mean Platelet Volume 8.8 FL Neutrophils (%) (Auto) 49.9 % Lymphocytes (%) (Auto) 35.0 % Monocytes (%) (Auto) 10.0 % Eosinophils (%) (Auto) 4.4 % Basophils (%) (Auto) 0.7 % Neutrophils # (Auto) 2.7 TH/MM3 Lymphocytes # (Auto) 1.9 TH/MM3 Monocytes # (Auto) 0.5 TH/MM3 Eosinophils # (Auto) 0.2 TH/MM3 Basophils # (Auto) 0.0 TH/MM3 CBC Comment DIFF FINAL Differential Comment Prothrombin Time 10.7 SEC Prothromb Time International Ratio 1.1 RATIO Activated Partial Thromboplast Time 27.1 SEC Blood Urea Nitrogen 14 MG/DL Creatinine 1.01 MG/DL Random Glucose 275 MG/DL Total Protein 7.1 GM/DL Albumin 3.6 GM/DL Calcium Level 8.7 MG/DL Magnesium Level 1.6 MG/DL Alkaline Phosphatase 99 U/L Aspartate Amino Transf (AST/SGOT) 6 U/L Alanine Aminotransferase (ALT/SGPT) 23 U/L Total Bilirubin 0.3 MG/DL Sodium Level 137 MEQ/L Potassium Level 3.9 MEQ/L Chloride Level 103 MEQ/L Carbon Dioxide Level 23.8 MEQ/L Anion Gap 10 MEQ/L Estimat Glomerular Filtration Rate 93 ML/MIN Total Creatine Kinase 153 U/L Creatine Kinase MB 2.1 NG/ML Troponin I 0.05 NG/ML B-Type Natriuretic Peptide 18 PG/ML Lipase 72 U/L MDM Medical Decision Making Medical Screen Exam Complete: Yes Emergency Medical Condition: Yes Medical Record Reviewed: Yes Differential Diagnosis Acute coronary syndrome, versus acid reflux, versus anxiety disorder, versus pulmonary embolism Narrative Course During the course of the patient's emergency department visit, the patient's history, examination, and differential diagnosis were reviewed with the patient. The patient was placed on a compliance monitor with oximetry and frequent blood pressure monitoring. The patient had IV access obtained and blood work sent for analysis. The patient had an EKG done on arrival. The patient's EKG reveals no acute changes compared to a prior EKG, sinus rhythm heart rate of 78 , right bundle branch block is noted. No acute ST segment elevation, T waves are inverted in V1, V2. The patient was initially provided aspirin 324 mg p.o. 1, sublingual nitroglycerin every 5 minutes 3, nitroglycerin 1 inch to the chest wall. The patient continued to have chest pain and was given morphine 4 mg IV for pain. The patient's laboratory studies were reviewed and remarkable for 05/11/18 04:40 Total Protein 7.1, Albumin 3.6, Calcium Level 8.7, Magnesium Level 1.6, Alkaline Phosphatase 99, Aspartate Amino Transf (AST/SGOT) 6 L, Alanine Aminotransferase (ALT/SGPT) 23, Total Bilirubin 0.3. Lipase within normal limits, BNP 18, initial set of cardiac enzymes are negative. PT PTT within normal limits. The patient's results were discussed with the patient, including the plan of care. I explained that further testing and/ or monitoring is indicated based on the patient's history, examination, and/ or laboratory findings. Therefore, I recommended admission for additional evaluation. The patient expressed understanding and was agreeable with this plan. The patient was admitted to the hospital in stable condition and sent to a bed under the care of chest pain center. Radiology studies were reviewed and remarkable for Last Impressions Chest X-Ray 05/11/18 0438 Signed Impressions: CONCLUSION: No acute abnormality seen. Diagnosis Primary Impression: Chest pain, rule out acute myocardial infarction Additional Impression: Hx of coronary artery disease Admitting Information Admitting Physician Requests: Observation Scripts Isosorbide Mononitrate ER (Isosorbide Mononitrate ER) 30 Mg Prince 30 MG PO DAILY for Prevent Chest Pain, #30 TAB 0 Refills Prov: Gricelda Hodge 05/11/18 Maryjane Guerrero MD May 11, 2018 04:58
[2018-05-11] MEDS ORDERED: NITROGLYCERIN 0.4 MG SL 25 TABS/BTL SL PRN (05:00)
[2018-05-11] MEDS ORDERED: SODIUM CHLORID 0.9% 500 ML INJ 500 ML IV ONE (05:00)
[2018-05-11] MEDS ORDERED: PROCHLORPERAZINE INJ 10 MG/2 ML VIAL IV PUSH ONE (05:00)
[2018-05-11] MEDS ORDERED: ASPIRIN 81 MG CHEW TAB CHEW ONE (05:00)
[2018-05-11] MEDS ORDERED: NITROGLYCERIN 2% OINT 1 GM PACKET TOPICAL ONE (05:00)
[2018-05-11 05:07] LABS: AUTOMATED NEUTROPHIL # 2.7 TH/MM3 (1.8-7.7); BASOPHIL % 0.7 % (0.0-2.0); EOSINOPHIL # 0.2 TH/MM3 (0-0.4); EOSINOPHIL % 4.4 % (0.0-4.0); HEMATOCRIT 39.9 % (39.0-51.0); HEMOGLOBIN 12.7 GM/DL (13.0-17.0); LYMPHOCYTE # 1.9 TH/MM3 (1.0-4.8); MEAN CELL VOLUME 71.6 FL (80.0-100.0); MEAN CORPUSCULAR HEMOGLOBIN 22.8 PG (27.0-34.0); MEAN CORPUSCULAR HGB CONC 31.9 % (32.0-36.0); MEAN PLATELET VOLUME 8.8 FL (7.0-11.0); MONOCYTE # 0.5 TH/MM3 (0-0.9); NEUT % 49.9 % (16.0-70.0); PLATELET COUNT 177 TH/MM3 (150-450); RED BLOOD COUNT 5.58 MIL/MM3 (4.50-5.90); RED CELL DISTRIBUTION WIDTH 15.3 % (11.6-17.2); WHITE BLOOD COUNT 5.4 TH/MM3 (4.0-11.0)
[2018-05-11 05:14] LABS: INTERNATIONAL NORMALIZED RATIO 1.1 RATIO; PROTHROMBIN TIME - PATIENT 10.7 SEC (9.8-11.6)
[2018-05-11 05:21] LABS: ALBUMIN 3.6 GM/DL (3.4-5.0); AST (GOT) 6 U/L (15-37); BICARBONATE 23.8 MEQ/L (21.0-32.0); BLOOD UREA NITROGEN 14 MG/DL (7-18); CALCIUM 8.7 MG/DL (8.5-10.1); CHLORIDE 103 MEQ/L (98-107); CREATININE 1.01 MG/DL (0.60-1.30); GLOMERULAR FILTRATION RATE 93 ML/MIN (>89); GLUCOSE,RANDOM 275 MG/DL (74-106); MAGNESIUM 1.6 MG/DL (1.5-2.5); SODIUM (NA) 137 MEQ/L (136-145)
[2018-05-11 05:22] LABS: ALT (GPT) 23 U/L (12-78)
[2018-05-11 05:26] LABS: ALKALINE PHOSPHATASE 99 U/L (45-117); TOTAL BILIRUBIN ADULT 0.3 MG/DL (0.2-1.0); TOTAL PROTEIN 7.1 GM/DL (6.4-8.2); TROPONIN I 0.05 NG/ML (0.02-0.05)
[2018-05-11] MEDS ORDERED: MORPHINE SULFATE 4 MG/ML INJ IV PUSH ONE (05:45)
--- NOTE | 2018-05-11 05:46 | RADRPT ---
EXAM DATE: 05/11/2018 5:11 AM EDT AGE/SEX: 52 years / Male INDICATIONS: Chest pain. CLINICAL DATA: This is the patient's initial encounter. Patient reports that signs and symptoms have been present for 1 day and indicates a pain score of 5/10. MEDICAL/SURGICAL HISTORY: None. None. COMPARISON: [facility], CHEST PA & LAT, 09/05/2016. . FINDINGS: The patient is status post sternotomy. The heart size is normal. The lungs are clear. CONCLUSION: No acute abnormality seen. Electronically signed by: Jose Luis Bradshaw MD 05/11/2018 5:45 AM EDT
[2018-05-11] MEDS ORDERED: SODIUM CHLOR 0.9% 1000 ML INJ 1,000 ML IV SCH (06:44)
[2018-05-11] MEDS ORDERED: SODIUM CHLORIDE 0.9% FLUSH 10 ML FLUSH IV FLUSH PRN (06:45)
[2018-05-11] MEDS ORDERED: MORPHINE SULFATE 4 MG/ML INJ IV PUSH PRN (06:45)
[2018-05-11] MEDS ORDERED: ACETAMINOPHEN 500 MG CPLT PO PRN (06:45)
[2018-05-11] MEDS ORDERED: ACETAMINOPHEN/HYDROcodone 325 MG/7.5 MG TAB PO PRN (06:45)
[2018-05-11 08:05] VITALS: BP 135/78; PULSE 69; RESP 18; O2SAT 97
--- NOTE | 2018-05-11 08:15 | HHI.HP ---
[facility] Primary Care Physician Everton Tello MD Chief Complaint Chest pain History of Present Illness 52 male with known coronary artery disease, CABG 5, and recent angioplasty and stenting to the distal right coronary artery on 05/04/18 presents to the ER for further evaluation chest pain. Onset Thursday 1000. Location left anterior chest. Chest pain characterized as sharp. Duration all day Thursday, unable to sleep last evening and developing radiation to left arm therefore came the ER for further evaluation. No associated symptoms of nausea, vomiting, dyspnea, or diaphoresis. Endorses his stomach felt "irritable." No particular movement or position made pain better or worse. Continues to have left posterior upper arm discomfort, "more on the surface of arm." Continues to have pain. Endorses similar pain last week with RI. NSTEMI and Dr. Singh placed stent with angioplasty to distal RCA. Cath report indicated 4/5 bypass grafts are patent with severe stenosis of the distal RCA. States compliance with medications, however upon discharge did not start Plavix for 2 days. Review of Systems General: No fatigue, weakness, fever, chills, recent illness, or change in appetite. Recent NSTEMI with intervention 05/04/18, started Plavix 2 days post discharge. HEENT: No WILKES, no vision changes, no nasal congestion or drainage, no dysphasia CV: Continues to have chest pain as stated above. RESP: No SOB, cough, or wheeze. History of asthma GI: No nausea, vomiting, or bowel changes. : No dysuria, urgency, frequency. History of BPH EXT: No lower leg edema. Left leg pain yesterday, since resolved. Characterized as quick, shooting pain. MS: As stated above. Continues to have mild left posterior upper extremity discomfort. No injury or change in ROM NEURO: No dizziness, difficulty with balance, LOC, motor/sensory deficits PSYCH: No anxiety, depression, or suicidal ideation SKIN: No rashes, no concerning lesions Past Family Social History Allergies: Coded Allergies: grass pollen (Unverified Allergy, Mild, ITCH, SNEEZE, 05/11/18) house dust (Unverified Allergy, Mild, ITCH, SNEEZE, 05/11/18) Past Medical History Coronary artery disease, asthma, type 2 diabetes, BPH Past Surgical History CABG 5 (March 2013), cholecystectomy Reported Medications Reported Meds & Active Scripts Active Flomax (Tamsulosin HCl) 0.4 Mg Cap 0.4 Mg PO HS Tgt Aspirin (Aspirin) 81 Mg Chw 81 Mg PO DAILY Lisinopril 5 Mg Tab 2.5 Mg PO DAILY Metoprolol Tartrate 25 Mg Tab 12.5 Mg PO Q12HR Plavix (Clopidogrel Bisulfate) 75 Mg Tab 75 Mg PO DAILY Atorvastatin (Atorvastatin Calcium) 40 Mg Tab 40 Mg PO HS Glipizide 5 Mg Tab 5 Mg PO BIDAC 14 Days Take 10mg in the morning and 5mg at bedtime. Take 30 minutes before a meal Metformin (Metformin HCl) 500 Mg Tab 500 Mg PO BIDPC Lantus Inj (Insulin Glargine) 1,000 Unit/10 Ml Vial 30 Units SQ HS Omeprazole 20 Mg Tab 20 Mg PO BID Glipizide 10 Mg Tab 10 Mg PO DAILY Take 30 minutes before a meal Glipizide 5 Mg Tab 5 Mg PO HS Take 30 minutes before a meal Gabapentin 300 Mg Cap 300 Mg PO HS Papaverine-Phentolamine M 30-1 mg/ml (Papaverine-Phentolamine) 30 Mg-1 Mg/Ml (1 Ml) Mae 0.1 Ml UR PRN Cetirizine (Cetirizine HCl) 10 Mg Tab 10 Mg PO DAILY Symbicort Inh (Budesonide/Formoterol Fumarate) 80-4.5 Mcg/Act Aero 1 Puff INH Q12HR Proventil Hfa 6.7 GM Inh (Albuterol Sulfate) 90 Mcg/Act Aer 2 Puff INH Q4H PRN Active Ordered Medications Current Medications Medications (Trade) Dose Ordered Sig/Amos Route Start Time Stop Time Status Last Admin (NS Flush) 2 ml UNSCH PRN IVF 05/11/18 04:45 (Nitrostat Sl) 0.4 mg Q5M PRN SL 05/11/18 05:00 Sodium Chloride 1,000 ml @ 100 mls/hr Q10H IV 05/11/18 06:44 05/11/18 08:06 (NS Flush) 2 ml UNSCH PRN IV FLUSH 05/11/18 06:45 (NS Flush) 2 ml BID IV FLUSH 05/11/18 09:00 05/11/18 08:06 (Tylenol) 500 mg Q4H PRN PO 05/11/18 06:45 (Dennison 7.5-325 Mg) 1 tab Q4H PRN PO 05/11/18 06:45 (Morphine Inj) 2 mg Q4H PRN IV PUSH 05/11/18 06:45 (Pepcid) 20 mg BID PO 05/11/18 09:00 Family History Noncontributory for early onset cardiovascular disease. Sister with diabetes, father prostate cancer, mother CABG. Social History Known coronary artery disease, diabetes, and appropriately taking statin therapy. No known hypertension. Lifelong non-smoker. Past cardiac testing 05/04/18 Cardiac catheterization (Dr Singh) Diagnoses: 1. Coronary artery disease with patent 4/5 grafts and severe stenosis of the distal right coronary artery distally to saphenous vein graft. 2. Mild left ventricular dysfunction consistent with ischemic cardiomyopathy. 3. Successful angioplasty and stenting to the distal right coronary artery. CABG x5-RODRIGUEZ to LAD. SVG to the third obtuse marginal artery. SVG to the first obtuse marginal artery. SVG to first diagonal artery. SVG to RCA. Physical Exam Vital Signs Vital Signs Date Time Temp Pulse Resp B/P (MAP) Pulse Ox O2 Delivery O2 Flow Rate FiO2 05/11/18 08:05 69 18 135/78 (97) 97 Room Air 05/11/18 04:52 77 16 142/71 (94) 98 Room Air 05/11/18 04:51 16 99 Room Air 05/11/18 04:51 76 16 148/81 (103) 99 Room Air 05/11/18 04:50 99 Room Air 05/11/18 04:25 98.2 83 16 129/70 (89) 98 Physical Exam GENERAL: Alert WN, WD, NAD, pleasant, -German male HEAD: NC, AT EYES: Sclera clear, conjunctiva without injection, pupils equal and round ENT: Mucous membranes pink and moist CV: RRR, without murmur, rub, or gallop. RESP: Clear lungs throughout bilateral, no crackles, wheeze, rhonchi, symmetrical chest rise, nonlabored, able to speak in full sentences ABD: Soft, NT, ND, no masses, positive bowel tones EXT: Pulses +2x4, no dependent edema MS: Normal tone -4 extremities, no obvious deformities, full range of motion NEURO: CN II through CN XII grossly intact, motor strength 5/5 PSYCH: A+O x3, pleasant affect, appropriate speech, mood, insight and judgment SKIN: Normal turgor, normal texture, no lesions, no rashes Laboratory Laboratory Tests Test 05/11/18 04:40 05/11/18 08:00 White Blood Count 5.4 Red Blood Count 5.58 Hemoglobin 12.7 Hematocrit 39.9 Mean Corpuscular Volume 71.6 Mean Corpuscular Hemoglobin 22.8 Mean Corpuscular Hemoglobin Concent 31.9 Red Cell Distribution Width 15.3 Platelet Count 177 Mean Platelet Volume 8.8 Neutrophils (%) (Auto) 49.9 Lymphocytes (%) (Auto) 35.0 Monocytes (%) (Auto) 10.0 Eosinophils (%) (Auto) 4.4 Basophils (%) (Auto) 0.7 Neutrophils # (Auto) 2.7 Lymphocytes # (Auto) 1.9 Monocytes # (Auto) 0.5 Eosinophils # (Auto) 0.2 Basophils # (Auto) 0.0 CBC Comment DIFF FINAL Differential Comment Prothrombin Time 10.7 Prothromb Time International Ratio 1.1 Activated Partial Thromboplast Time 27.1 Blood Urea Nitrogen 14 Creatinine 1.01 Random Glucose 275 Total Protein 7.1 Albumin 3.6 Calcium Level 8.7 Magnesium Level 1.6 Alkaline Phosphatase 99 Aspartate Amino Transf (AST/SGOT) 6 Alanine Aminotransferase (ALT/SGPT) 23 Total Bilirubin 0.3 Sodium Level 137 Potassium Level 3.9 Chloride Level 103 Carbon Dioxide Level 23.8 Anion Gap 10 Estimat Glomerular Filtration Rate 93 Total Creatine Kinase 153 Creatine Kinase MB 2.1 Troponin I 0.05 B-Type Natriuretic Peptide 18 Lipase 72 Result Diagram: 05/11/180 05/11/18 0440 Imaging Last 48 hours Impressions Chest X-Ray 05/11/18 0438 Signed Impressions: CONCLUSION: No acute abnormality seen. Course EKG NSR, R BBB Caprini VTE Risk Assessment Caprini VTE Risk Assessment: No/Low Risk (score <= 1) Caprini Risk Assessment Model Point Value = 1 Point Value = 2 Point Value = 3 Point Value = 5 Age 41-60 Minor surgery BMI > 25 kg/m2 Swollen legs Varicose veins or History of unexplained or recurrent spontaneous Oral contraceptives or hormone replacement Sepsis (< 1 month) Serious lung disease, including pneumonia (< 1 month) Abnormal pulmonary function Acute myocardial infarction Congestive heart failure (< 1 month) History of inflammatory bowel disease Medical patient at bed rest Age 61-74 Arthroscopic surgery Major open surgery (> 45 min) Laparoscopic surgery (> 45 min) Malignancy Confined to bed (> 72 hours) Immobilizing plaster cast Central venous access Age >= 75 History of VTE Family history of VTE Factor V Leiden Prothrombin [id number] Lupus anticoagulant Anticardiolipin antibodies Elevated serum homocysteine Heparin-induced thrombocytopenia Other congenital or acquired thrombophilia Stroke (< 1 month) Elective arthroplasty Hip, pelvis, or leg fracture Acute spinal cord injury (< 1 month) Prophylaxis Regimen Total Risk Factor Score Risk Level Prophylaxis Regimen 0-1 Low Early ambulation 2 Moderate Order ONE of the following: *Sequential Compression Device (SCD) *Heparin 5000 units SQ BID 3-4 Higher Order ONE of the following medications: *Heparin 5000 units SQ TID *Enoxaparin/Lovenox 40 mg SQ daily (WT < 150 kg, CrCl > 30 mL/min) *Enoxaparin/Lovenox 30 mg SQ daily (WT < 150 kg, CrCl > 10-29 mL/min) *Enoxaparin/Lovenox 30 mg SQ BID (WT < 150 kg, CrCl > 30 mL/min) AND/OR *Sequential Compression Device (SCD) 5 or more Highest Order ONE of the following medications: *Heparin 5000 units SQ TID (Preferred with Epidurals) *Enoxaparin/Lovenox 40 mg SQ daily (WT < 150 kg, CrCl > 30 mL/min) *Enoxaparin/Lovenox 30 mg SQ daily (WT < 150 kg, CrCl > 10-29 mL/min) *Enoxaparin/Lovenox 30 mg SQ BID (WT < 150 kg, CrCl > 30 mL/min) AND *Sequential Compression Device (SCD) Assessment and Plan Assessment and Plan Admitted to chest pain center. Seen and evaluated by Dr. Darrick Avalos. Continue ACS protocol including 3 sets of EKG and cardiac enzymes. Dr. Avalos spoke with Dr. Singh, made aware of admission to [facility]. Continue ACS protocol. May have only a clear diet for possible cardiac catheterization depending on troponin's and EKGs. Initial troponin 0.05. Max Troponin last week during NSTEMI 0.07. Reviewing past troponin's 0.04-0.05 seems to be baseline for him. Continue home cardiac medications. Gricelda Hodge May 11, 2018 08:15
[2018-05-11 08:43] LABS: TROPONIN I 0.06 NG/ML (0.02-0.05)
[2018-05-11] MEDS ORDERED: SODIUM CHLORIDE 0.9% FLUSH 10 ML FLUSH IV FLUSH SCH (09:00)
[2018-05-11] MEDS ORDERED: FAMOTIDINE 20 MG TAB PO SCH (09:00)
[2018-05-11] MEDS ORDERED: METOPROLOL TARTRATE 25 MG TAB PO SCH (10:00)
[2018-05-11] MEDS ORDERED: NON-FORMULARY DRUG (Omeprazole 20 MG) PO SCH (10:00)
[2018-05-11] MEDS ORDERED: LISINOPRIL 5 MG TAB PO SCH (10:00)
[2018-05-11] MEDS ORDERED: CLOPIDOGREL 75 MG TAB PO SCH (10:00)
[2018-05-11] MEDS ORDERED: PILL SPLITTER OTHER PRN (10:30)
[2018-05-11 11:44] LABS: TROPONIN I 0.06 NG/ML (0.02-0.05)
[2018-05-11] MEDS ORDERED: ISOS30TA3 PO (12:13)
--- NOTE | 2018-05-11 12:15 | HHI.DCPOC ---
Discharge Care Plan Diagnosis: (1) Hx of coronary artery disease (2) Stented coronary artery Goals to Promote Your Health * To prevent worsening of your condition and complications * To maintain your health at the optimal level Directions to Meet Your Goals Take your medications as prescribed Follow your dietary instruction Follow activity as directed Keep your appointments as scheduled Take your immunizations and boosters as scheduled If your symptoms worsen call your PCP, if no PCP go to Urgent Care Center or Emergency Room Smoking is Dangerous to Your Health. Avoid second hand smoke Call the 24-hour hour crisis hotline for domestic abuse at Gricelda Hodge May 11, 2018 12:15
--- NOTE | 2018-05-11 16:37 | EKG ---
Date Performed: 05/11/2018 Time Performed: 08:00:26 PTAGE: 52 years EKG: Sinus rhythm RIGHT BUNDLE BRANCH BLOCK ABNORMAL ECG PREVIOUS TRACING : 05/11/2018 04.38 Since previous tracing, no significant change noted DOCTOR: Darrick Avalos Interpretating Date/Time 05/11/2018 16:35:37
--- NOTE | 2018-05-11 16:38 | EKG ---
Date Performed: 05/11/2018 Time Performed: 04:38:42 PTAGE: 52 years EKG: Sinus rhythm RIGHT BUNDLE BRANCH BLOCK ABNORMAL ECG NO PREVIOUS TRACING DOCTOR: Darrick Avalos Interpretating Date/Time 05/11/2018 16:37:50
--- NOTE | 2018-05-11 16:43 | EKG ---
Date Performed: 05/11/2018 Time Performed: 10:59:11 PTAGE: 52 years EKG: Sinus rhythm BORDERLINE LEFT AXIS DEVIATION RIGHT BUNDLE BRANCH BLOCK ABNORMAL ECG PREVIOUS TRACING : 05/11/2018 08.00 Since previous tracing, no significant change noted DOCTOR: Darrick Avalos Interpretating Date/Time 05/11/2018 16:42:55
[2018-05-11] MEDS ORDERED: PANTOPRAZOLE SOD 20 MG DELAYED RELEASE TAB PO SCH (21:00)
[2018-05-11] MEDS ORDERED: ATORVASTATIN 40 MG TAB PO SCH (21:00)
[2018-05-12] MEDS ORDERED: ASPIRIN 81 MG CHEW TAB PO SCH (09:00)
== END 2018-05-11 14:07 | disposition home or self-care (01) ==
LOC: NEPC 04:15 → NEDA 06:07
PROVIDERS: ADMIT Internal Medicine Cardiovascular Disease; ATTEND Internal Medicine Cardiovascular Disease
DX: I25.10 Atherosclerotic heart disease of native coronary artery without angina pectoris (principal); I21.4 Non-ST elevation (NSTEMI) myocardial infarction; I10 Essential (primary) hypertension; E11.9 Type 2 diabetes mellitus without complications; N40.0 Benign prostatic hyperplasia without lower urinary tract symptoms; J45.909 Unspecified asthma, uncomplicated; K21.9 Gastro-esophageal reflux disease without esophagitis; E78.00 Pure hypercholesterolemia, unspecified; Z79.82 Long term (current) use of aspirin; Z95.1 Presence of aortocoronary bypass graft; Z95.5 Presence of coronary angioplasty implant and graft; Z83.3 Family history of diabetes mellitus; Z80.42 Family history of malignant neoplasm of prostate
CPT/HCPCS: 71046; 80053; 82550; 82552; 83690; 83735; 83880; 84484; 85025; 85610; 85730; 93005; 96361; 96374; 96375; 99285; G0378; J0780; J2270; J7030; J7040

== ENCOUNTER 2018-07-26 14:28 | Observation (INO) ==
--- NOTE | 2018-07-26 15:16 | XR ---
EXAM DATE: 07/26/2018 3:11 PM EDT AGE/SEX: 53 years / Male INDICATIONS: Chest pain CLINICAL DATA: This is the patient's initial encounter. Patient reports that signs and symptoms have been present for 1 day and indicates a pain score of 5/10. MEDICAL/SURGICAL HISTORY: . : Hypercholesterolemia. Hypertension. Diabetes. . CABG. Cardiac s tent COMPARISON: [facility], CHEST 1V SINGLE AP, 06/19/2018. . FINDINGS: A single AP view of the chest demonstrates the lungs to be symmetrically aerated without evidence of mass, infiltrate or effusion. Median sternotomy wires from prior open heart surgery are noted. The c ardiomediastinal contours are otherwise unremarkable. Osseous structures are intact. CONCLUSION: No evidence of acute cardiopulmonary process. Evidence of previous CABG. Electronically signed by: Wagner Sanchez MD 07/26/2018 3:15 PM EDT
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
[2018-07-26 16:44] LABS: Baso % (Auto) 0.3 % (0.0-2.0); Eos % (Auto) 0.3 % (0.0-4.0); Hematocrit 43.6 % (39.0-51.0); Hemoglobin 13.9 gm/dL (13.0-17.0); Lymph # (Auto) 1.4 th/mm3 (1.0-4.8); Lymph % (Auto) 19.1 % (9.0-44.0); Mean Corpuscular Hemoglobin 23.4 pg (27.0-34.0); Mean Corpuscular Volume 73.3 fL (80.0-100.0); Mean Platelet Volume 8.7 fL (7.0-11.0); Mono # (Auto) 0.5 th/mm3 (0.0-0.9); Mono % (Auto) 7.4 % (0.0-8.0); Neut # (Auto) 5.2 th/mm3 (1.8-7.7); Neut % (Auto) 72.9 % (16.0-70.0); Platelet Count 229 th/mm3 (150-450); Red Blood Count 5.95 mil/mm3 (4.50-5.90); Red Cell Distribution Width 15.3 % (11.6-17.2); White Blood Count 7.1 th/mm3 (4.0-11.0)
[2018-07-26 17:01] LABS: Alanine Aminotransferase 26 U/L (12-78); Albumin 3.9 g/dL (3.4-5.0); Anion Gap 9 meq/L (5-15); Aspartate Aminotransferase 14 U/L (15-37); Blood Urea Nitrogen 18 mg/dL (7-18); Calcium 8.7 mg/dL (8.5-10.1); Carbon Dioxide 25.7 meq/L (21.0-32.0); Chloride 105 meq/L (98-107); Glomerular Filtration Rate 86 mL/min (>89); Glucose,Random 264 mg/dL (74-106); Potassium 4.4 meq/L (3.5-5.1); Sodium 140 meq/L (136-145)
[2018-07-26 17:05] LABS: Alkaline Phosphatase 78 U/L (45-117); Total Protein 7.8 g/dL (6.4-8.2); Troponin I 0.11 ng/mL (0.02-0.05)
[2018-07-26] MEDS ORDERED: Dextrose 50% in Water 50 ML Vial IV.PUSH PRN (18:11)
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
[2018-07-26] MEDS: Gabapentin 300 MG Capsule PO SCH (18:48)
[2018-07-26 19:10] LABS: Activated Partial Thrombo Time 24.3 sec (24.3-30.1); INR 1.1 Ratio; Prothrombin Time 10.8 sec (9.8-11.6)
[2018-07-26 21:41] LABS: Creatine Kinase 290 U/L (39-308)
[2018-07-26] MEDS: Insulin NovoLOG Aspart Correctional Sugar Inj SQ SCH (22:12)
[2018-07-26] MEDS: Metoprolol Tartrate 25 MG Tablet PO SCH (22:12)
[2018-07-26] MEDS: Budesonide-Formoterol 80/4.5 MCG 6.9 GM Inhaler INH SCH (22:37)
[2018-07-27] MEDS: Acetaminophen 325 MG Tablet PO PRN ×2 (00:20→06:22)
[2018-07-27 04:19] LABS: Hematocrit 39.5 % (39.0-51.0); Hemoglobin 12.9 gm/dL (13.0-17.0); Mean Corpuscular HGB Conc 32.6 % (32.0-36.0); Mean Corpuscular Hemoglobin 23.6 pg (27.0-34.0); Mean Corpuscular Volume 72.4 fL (80.0-100.0); Mean Platelet Volume 8.3 fL (7.0-11.0); Platelet Count 218 th/mm3 (150-450); Red Blood Count 5.46 mil/mm3 (4.50-5.90); Red Cell Distribution Width 15.1 % (11.6-17.2); White Blood Count 5.4 th/mm3 (4.0-11.0)
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
[2018-07-27] MEDS: Metoprolol Tartrate 25 MG Tablet PO SCH (08:55)
[2018-07-27] MEDS: Gabapentin 300 MG Capsule PO SCH (08:58)
[2018-07-27] MEDS ORDERED: Pantoprazole Sodium 20 MG DR Tablet PO SCH (09:00)
[2018-07-27] MEDS ORDERED: Lisinopril 5 MG Tablet PO SCH (09:00)
[2018-07-27] MEDS: Insulin NovoLOG Aspart Correctional Sugar Inj SQ SCH ×2 (09:02→13:14)
[2018-07-27] MEDS: Budesonide-Formoterol 80/4.5 MCG 6.9 GM Inhaler INH SCH (09:03)
--- NOTE | 2018-07-27 14:04 | ECG ---
Date Performed: 07/26/2018 Time Performed: 14:53:24 PTAGE: 53 years EKG: Sinus rhythm RIGHT BUNDLE BRANCH BLOCK ABNORMAL ECG Since the PREVIOUS TRACING , no significant change noted PREVIOUS TRACIN06/19/2018 04.50 DOCTOR: Everton Shelley Interpretating Date/Time 07/27/2018 14:02:26
--- NOTE | 2018-07-27 14:04 | ECG ---
Date Performed: 07/26/2018 Time Performed: 21:31:10 PTAGE: 53 years EKG: Sinus rhythm BORDERLINE LEFT AXIS DEVIATION RIGHT BUNDLE BRANCH BLOCK ABNORMAL ECG Since the PREVIOUS TRACING , no significant change noted PREVIOUS TRACIN07/26/2018 14.53 DOCTOR: Everton Shelley Interpretating Date/Time 07/27/2018 14:02:16
[2018-07-27] MEDS ORDERED: Regadenoson Inj 0.4 MG/5 ML Syringe IV.PUSH ONE (14:36)
--- NOTE | 2018-07-27 16:13 | NM ---
EXAM DATE: 07/27/2018 3:57 PM EDT AGE/SEX: 53 years / Male INDICATIONS:Angina. Myocardial infarction Substernal chest pain. CLINICAL DATA: This is the patient's initial encounter. Patient reports that signs and symptoms have been present for 1 day and indicates a pain score of 7/10. MEDICAL/SURGICAL HISTORY: Diabetes mellitus type II. Hypercholesterolemia. Cholecystectomy. C oronary artery stent. CABG. COMPARISON: [facility], MYOCARDIAL PERF PHARM SPECT, 02/06/2015. . DOSE: 8.8 mCi Tc 99m Myoview at rest 25.8 mCi [id number] at stress 0.4 mg Lexiscan STRESS SYMPTOMS: Short of breath and flush. EJECTION FRACTION: 64 % TECHNIQUE: The patient underwent pharmacologic stress with infusion of prescribed dose. Continuous ECG tracing was monitored during stress. Gated SPECT imaging was performed after stress and conventi onal SPECT imaging was performed at rest. The examination was performed on a SPECT/CT scanner, both attenuation and non-corrected datasets were reviewed. FINDINGS: There is a fixed defect in the mid ventricular inferior wall involving a moderate segment of myocardi um. There is no distribution to suggest ischemia. Ejection fraction is 64% with mild hypokinesis mid inferior septal wall. RISK CATEGORY: Low (<1% Annual Motality Rate) CONCLUSION: 1. Negative for stress-induced ischemia 2. 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 Electronically signed by: Aiblio Puri MD 07/27/2018 4:12 PM EDT
--- NOTE | 2018-07-27 17:12 | P.PN ---
Subjective Interval history: Patient is seen lying comfortably in bed. He remains handcuffed with please officer monitoring from nursing station. Patient denies any new or further chest pain. No shortness of breath. He does have some acid reflux. No nausea vomiting or diarrhea. Physical Exam Vital signs: Vital Signs 07/26/18 17:30 07/26/18 18:11 07/26/18 19:10 Temperature Pulse Rate 81 Respiratory Rate 18 Blood Pressure 133/100 H Pulse Oximetry 98 99 99 07/26/18 20:00 07/26/18 23:13 07/27/18 00:00 Temperature 97.8 F 97.4 F L Pulse Rate 78 77 69 Respiratory Rate 20 19 Blood Pressure 138/82 114/68 Pulse Oximetry 100 96 07/27/18 01:00 07/27/18 04:00 07/27/18 07:34 Temperature 97.8 F 97.8 F Pulse Rate 67 69 Respiratory Rate 17 20 12 Blood Pressure 130/70 156/83 H Pulse Oximetry 99 98 07/27/18 07:52 07/27/18 11:45 07/27/18 15:54 Temperature 98.3 F 97.8 F Pulse Rate 74 65 87 Respiratory Rate 16 16 Blood Pressure 150/79 H 154/87 H Pulse Oximetry 99 99 Intake & Output 07/26/18 07/27/18 07/27/18 18:59 06:59 18:59 Intake Total 360 / 360 Balance 360 / 360 Weight 79.838 kg 79.832 kg Intake: Oral 360 / 360 Other: # Voids 1 Date of Last Bowel Movement 07/25/18 Weight On Admission 79.832 kg Narrative: GENERAL: Well-nourished, well-developed adult male in no obvious distress. SKIN: Warm and dry. HEAD: Atraumatic. Normocephalic. CARDIOVASCULAR: Regular rate and rhythm. RESPIRATORY: No accessory muscle use. Clear to auscultation. Breath sounds equal bilaterally. GASTROINTESTINAL: Abdomen soft, non-tender,non- distended. Positive bowel sounds. MUSCULOSKELETAL: Extremities without clubbing, cyanosis, or edema. No obvious deformities. NEUROLOGICAL: Awake and alert. No obvious cranial nerve deficits. Motor grossly within normal limits. Normal speech. PSYCHIATRIC: Appropriate mood and affect; insight and judgment good. Results - Labs CBC & Chem 7: 07/27/18 03:50 07/26/18 15:40 Laboratory Results - last 24 hr 07/26/18 07/26/18 07/26/18 18:30 19:55 20:49 WBC RBC Hgb Hct MCV MCH MCHC RDW Plt Count MPV PT 10.8 INR 1.1 APTT 24.3 POC Glucose 247 H Total Creatine Kinase 290 CK-MB (CK-2) 2.0 Troponin I 0.10 H 07/27/18 07/27/18 07/27/18 03:50 03:50 03:50 WBC 5.4 RBC 5.46 Hgb 12.9 L Hct 39.5 MCV 72.4 L MCH 23.6 L MCHC 32.6 RDW 15.1 Plt Count 218 MPV 8.3 PT INR APTT 26.4 POC Glucose Total Creatine Kinase CK-MB (CK-2) Troponin I 0.11 H 07/27/18 07:18 WBC RBC Hgb Hct MCV MCH MCHC RDW Plt Count MPV PT INR APTT POC Glucose 172 H Total Creatine Kinase CK-MB (CK-2) Troponin I - Imaging Impressions Myocardial Perfusion Scan Nuc Med 07/27/18 00:00 CONCLUSION: 1. Negative for stress-induced ischemia 2. 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 Assessment and Plan - Plan 53-year-old black male with history of recent non-STEMI April 2018, status post stent to distal RCA. Presents to the emergency room with left chest wall pain with radiation to left arm associated with shortness of breath. Troponin elevated 0.11. Chest pain with elevated troponin, no EKG changes. EKG reviewed by me -Continue with serial troponins every 62 Continue with Plavix and aspirin Continue with metoprolol 12.5 mg p.o. twice daily Consult cardiology for evaluation -cardiology ordered a stress test which was negative. They recommend discharge with new prescription for Imdur Type 2 diabetes Accu-Cheks before meals and at bedtime with insulin therapy as needed Hypertension Blood pressure well controlled Continue with lisinopril 5 mg p.o. daily Hyperlipidemia Continue with home statin
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
[2018-07-28] MEDS ORDERED: Isosorbide Mononitrate 30 MG ER 24HR Tablet (Imdur) PO SCH (07:00)
== END 2018-07-27 18:04 | disposition home or self-care (01) ==
LOC: NEDA 14:28 → NEPC 14:28 → NEPGCP 20:04
PROVIDERS: ADMIT Hospitalist; ATTEND Hospitalist
DX: J45.909 Unspecified asthma, uncomplicated; Z95.5 Presence of coronary angioplasty implant and graft; N40.0 Benign prostatic hyperplasia without lower urinary tract symptoms; R07.9 Chest pain, unspecified; Z95.1 Presence of aortocoronary bypass graft; E11.9 Type 2 diabetes mellitus without complications; I10 Essential (primary) hypertension; Z79.4 Long term (current) use of insulin; I25.2 Old myocardial infarction; Z90.49 Acquired absence of other specified parts of digestive tract; F17.210 Nicotine dependence, cigarettes, uncomplicated; K21.9 Gastro-esophageal reflux disease without esophagitis; I45.10 Unspecified right bundle-branch block; E78.5 Hyperlipidemia, unspecified; Z79.899 Other long term (current) drug therapy; Z79.02 Long term (current) use of antithrombotics/antiplatelets; Z82.49 Family history of ischemic heart disease and other diseases of the circulatory system; Z79.51 Long term (current) use of inhaled steroids; I25.10 Atherosclerotic heart disease of native coronary artery without angina pectoris

== ENCOUNTER 2018-10-22 01:19 | Observation (INO) ==
[2018-10-22 01:34] LABS: Baso % (Auto) 1.2 % (0.0-2.0); Eos # (Auto) 0.2 th/mm3 (0.0-0.4); Hematocrit 38.3 % (39.0-51.0); Hemoglobin 12.5 gm/dL (13.0-17.0); Lymph # (Auto) 1.4 th/mm3 (1.0-4.8); Lymph % (Auto) 35.8 % (9.0-44.0); Mean Corpuscular HGB Conc 32.7 % (32.0-36.0); Mean Corpuscular Hemoglobin 23.9 pg (27.0-34.0); Mean Corpuscular Volume 73.1 fL (80.0-100.0); Mean Platelet Volume 8.5 fL (7.0-11.0); Mono # (Auto) 0.4 th/mm3 (0.0-0.9); Mono % (Auto) 10.9 % (0.0-8.0); Neut # (Auto) 1.9 th/mm3 (1.8-7.7); Neut % (Auto) 47.1 % (16.0-70.0); Platelet Count 176 th/mm3 (150-450); Red Blood Count 5.24 mil/mm3 (4.50-5.90)
[2018-10-22 01:45] VITALS: RESP 16; O2SAT 100
--- NOTE | 2018-10-22 01:49 | XR ---
EXAM DATE: 10/22/2018 1:44 AM EST AGE/SEX: 53 years / Male INDICATIONS: Chest pain for 2 hours, left sided. CLINICAL DATA: This is the patient's initial encounter. Patient reports that signs and symptoms have been present for 1 day and indicates a pain score of 10/10. MEDICAL/SURGICAL HISTORY: . Diabetes mellitus type II. Hypercholesterolemia. Asthma. . Cholec ystectomy. Coronary artery stent. CABG. COMPARISON: [facility] – [place] CHEST 1V SINGLE AP, 07/26/2018. . FINDINGS: A single AP view of the chest demonstrates the lungs to be symmetrically aerated without evidence of mass, infiltrate or effusion. The cardiomediastinal contours are unremarkable. Osseous structures a re intact. CONCLUSION: Negative examination. Electronically signed by: Nikita Pappas MD 10/22/2018 1:47 AM EST
[2018-10-22 01:57] LABS: Alkaline Phosphatase 101 U/L (45-117); Total Protein 6.8 g/dL (6.4-8.2); Troponin I 0.04 ng/mL (0.02-0.05)
[2018-10-22 01:58] LABS: Alanine Aminotransferase 18 U/L (12-78); Albumin 3.3 g/dL (3.4-5.0); Anion Gap 4 meq/L (5-15); Aspartate Aminotransferase 19 U/L (15-37); Blood Urea Nitrogen 13 mg/dL (7-18); Calcium 7.9 mg/dL (8.5-10.1); Carbon Dioxide 25.7 meq/L (21.0-32.0); Chloride 107 meq/L (98-107); Glomerular Filtration Rate Greater Than 89 mL/min (>89); Glucose,Random 296 mg/dL (74-106); Potassium 4.7 meq/L (3.5-5.1); Sodium 137 meq/L (136-145)
[2018-10-22] MEDS ORDERED: Morphine Inj 4 MG/ML Vial IV.PUSH PRN (02:06)
[2018-10-22] MEDS ORDERED: Temazepam 15 MG Capsule PO PRN (02:06)
--- NOTE | 2018-10-22 02:15 | ED ---
HPI General Chief Complaint: Chest Pain Stated Complaint: chest pain Time Seen by Provider: 10/22/18 01:22 Source: patient and EMS Mode of arrival: EMS Limitations: no limitations History of Present Illness MD complaint: Reports chest pain STEMI Alert: No Onset (ago): hour(s) (1.5) Duration: constant Onset: during rest Pain location: Reports substernal and left chest Severity: moderate Quality: Reports aching and dull Pain radiation: Reports LUE, neck and jaw/teeth Relieving factors: nothing Exacerbating factors: other (aggrevation) Context: Reports other (h/o CAD s/p CABG 5 yrs ago and a stent in April, HTN , HL, DM) Associated symptoms: Denies nausea, diaphoresis, dyspnea and palpitations Treatments prior to arrival chest pain: Reports aspirin and nitroglycerin Related Data Home Medications Medication Instructions Recorded Confirmed albuterol sulfate [Proventil HFA] 2 puff INHALATION Q4-6H PRN 06/19/18 10/22/18 aspirin [Aspir-81] 81 mg PO DAILY 06/19/18 10/22/18 atorvastatin 40 mg PO DAILY 06/19/18 10/22/18 budesonide-formoterol [Symbicort] 2 puff INHALATION BID 06/19/18 10/22/18 cetirizine 10 mg PO DAILY 06/19/18 10/22/18 clopidogrel 75 mg PO DAILY 06/19/18 10/22/18 gabapentin 300 mg PO DAILY 06/19/18 10/22/18 insulin glargine [Lantus U-100 30 unit SUB-Q DAILY 06/19/18 10/22/18 Insulin] metoprolol tartrate 12.5 mg PO BID 06/19/18 10/22/18 omeprazole 20 mg PO DAILY 06/19/18 10/22/18 tamsulosin 0.4 mg PO DAILY 06/19/18 10/22/18 metformin 500 mg PO BID 07/26/18 10/22/18 Allergies Allergy/AdvReac Type Severity Reaction Status Date / Time No Known Allergies Allergy Verified 10/22/18 01:25 Review of Systems Gastrointestinal Reports abdominal pain PMFSH Medical History Medical History Hyperlipidemia (Acute) Pericarditis (Acute) UTI (urinary tract infection) (Acute) BPH (benign prostatic hyperplasia) (Acute) GERD (gastroesophageal reflux disease) (Acute) Myocardial infarction (Acute) Coronary artery disease (Acute) Asthma (Chronic) Diabetes (Chronic) Surgical History Surgical History History of heart bypass surgery (Chronic) History of mandibular surgery (Acute) History of cholecystectomy (Acute) History of heart artery stent (Acute) Family History Family History Mother Family history of acute myocardial infarction Social History Social History Substance History: No History of Abuse Second Hand Smoke Exposure: No Smoking Status: Never smoker How Often Do You Have a Drink Containing Alcohol: Never Recent Travel in [facility] within the Last 8 Weeks: No Recent Out of Country Travel within the Last 8 Weeks: No Immunization History Tetanus Immunization: Unsure Exam Const General: cooperative, healthy appearing and comfortable Orientation: alert, awake and oriented x3 HENMT Head: normal to inspection, normocephalic and atraumatic Eyes General: appearance normal, both eyes and all related structures Conjunctivae: conjunctivae normal Sclera: sclerae normal EOM: EOM intact bilaterally Neck Neck: normal visual inspection and full ROM Chest Chest: normal inspection of the chest Resp Effort & Inspection: normal respiratory effort and able to speak in complete sentences Auscultation: clear to auscultation bilaterally Cardio Rate: regular rate Rhythm: regular rhythm Heart Sounds: S1 normal and S2 normal GI Inspection: normal to inspection Palpation: soft Back/Spine/Pelvis Cervical Spine: cervical ROM normal Thoracic/Lumbar Spine: thoraco-lumbar ROM normal Skin General: no rashes or lesions noted, turgor normal and dry skin Neuro General: alert, awake, oriented x3, moves all extremities and CN's II-XI intact bilaterally Extrem General: normal to inspection, full ROM and no pedal edema Psych Appearance: grossly normal Mental Status: mental status grossly normal Speech and Movement: speech and movement normal Mood: congruent mood Affect: normal affect Attitude: cooperative Thought Process: normal Thought Content: normal Judgment: judgment good Course Initial Documented Vital Signs Temperature 98.7 F 10/22/18 01:23 Pulse Rate 76 10/22/18 01:23 Respiratory Rate 18 10/22/18 01:23 Blood Pressure 128/79 10/22/18 01:23 Pulse Oximetry 98 10/22/18 01:23 Last Documented Vital Signs Temperature 98.7 F 10/22/18 01:23 Pulse Rate 72 10/22/18 01:43 Respiratory Rate 16 10/22/18 01:43 Blood Pressure 128/79 10/22/18 01:23 Pulse Oximetry 100 10/22/18 01:43 Clinical Decision Support HEART Score Questions History: Slightly suspicious EKG: Non-specific repolarization disturbance Age: 45-64 years Risk Factors: 3 or more Risk Factors or Hx of Atherosclerotic Disease Initial Troponin: Normal Limit Heart Score HEART Score: 4 Medical Decision Making MDM Narrative Medical decision making narrative: This patient presents to us via [facility] with a chief complaint of chest pain. Onset was 1-1/2 hours prior to presentation. He describes a dull, achy sensation in the center of his chest radiating to the chest, left arm and left neck and jaw. He has a history of hypertension, diabetes, hyperlipidemia, coronary artery disease status post CABG 5 years ago and a stent this past summer. His initial cardiac evaluation is negative. He has had a relatively recent negative cardiac evaluation. However, he has significant risk factors. Therefore, he will be placed in the chest pain center for further evaluation. Medical Screen Exam Complete: Yes Emergency Medical Condition: Yes Differential Diagnosis Differential Diagnosis: Differential diagnosis of chest pain includes but is not limited to musculoskeletal pain, pulmonary embolism, acute coronary syndrome , pneumonia, pleurisy Medical Records Medical records reviewed: Yes I reviewed the patient's medical records. The patient was admitted here in July with similar complaints. He was evaluated in the chest pain center and had a negative stress test. Lab Data Lab results reviewed: Yes I reviewed the patient's lab results. Result diagrams: 10/22/18 01:30 10/22/18 01:30 Lab Results 10/22/18 10/22/18 Range/Units 01:30 01:30 WBC 4.0 (4.0-11.0) th/mm3 RBC 5.24 (4.50-5.90) mil/mm3 Hgb 12.5 L (13.0-17.0) gm/dL Hct 38.3 L (39.0-51.0) % MCV 73.1 L (80.0-100.0) fL MCH 23.9 L (27.0-34.0) pg MCHC 32.7 (32.0-36.0) % RDW 15.0 (11.6-17.2) % Plt Count 176 (150-450) th/mm3 MPV 8.5 (7.0-11.0) fL Neut % (Auto) 47.1 (16.0-70.0) % Lymph % (Auto) 35.8 (9.0-44.0) % [place] % (Auto) 10.9 H (0.0-8.0) % Eos % (Auto) 5.0 H (0.0-4.0) % Baso % (Auto) 1.2 (0.0-2.0) % Neut # (Auto) 1.9 (1.8-7.7) th/mm3 Lymph # (Auto) 1.4 (1.0-4.8) th/mm3 [place] # (Auto) 0.4 (0.0-0.9) th/mm3 Eos # (Auto) 0.2 (0.0-0.4) th/mm3 Baso # (Auto) 0.0 (0.0-0.2) th/mm3 WBC Differential . Differential Comment Auto diff final Sodium 137 (136-145) meq/L Potassium 4.7 (3.5-5.1) meq/L Chloride 107 (98-107) meq/L Carbon Dioxide 25.7 (21.0-32.0) meq/L Anion Gap 4 L (5-15) meq/L BUN 13 (7-18) mg/dL Creatinine 0.92 (0.60-1.30) mg/dL Estimated GFR Greater than 89 (>89) mL/min Random Glucose 296 H (74-106) mg/dL Calcium 7.9 L (8.5-10.1) mg/dL Total Bilirubin 0.3 (0.2-1.0) mg/dL AST 19 (15-37) U/L ALT 18 (12-78) U/L Alkaline Phosphatase 101 (45-117) U/L Troponin I 0.04 (0.02-0.05) ng/mL Total Protein 6.8 (6.4-8.2) g/dL Albumin 3.3 L (3.4-5.0) g/dL Imaging Data Attestation: I personally reviewed and interpreted this imaging study as follows : Radiologist's impression: Chest X-Ray 10/22/18 01:26 CONCLUSION: Negative examination. ECG Data EKG Prior to Arrival: No Attestation: I personally reviewed and interpreted this ECG as follows: (EKG shows a sinus rhythm with a rate of 72. He has a right bundle branch block. This is unchanged from previous. No acute STT wave changes.) Discharge Plan Discharge Disposition Patient Disposition: ED Admit(ED Internal Use Only) Discharge Order Discharge Orders: ED Use Only Admit Order (Routine); Ordered 10/22/18 Ordered By: Grazyna Weber Discharge Details Diagnosis: Chest pain Physicians Team ED Provider: Grazyna Weber Rxs /Orders / Referrals /Forms Prescriptions: No Action insulin glargine [Lantus U-100 Insulin] 100 unit/mL Solution 30 unit SUB-Q DAILY RF: 0 clopidogrel 75 mg Tablet 75 mg PO DAILY RF: 0 aspirin [Aspir-81] 81 mg Tablet,Delayed Release (Dr/Ec) 81 mg PO DAILY RF: 0 tamsulosin 0.4 mg Capsule,Extended Release 24hr 0.4 mg PO DAILY RF: 0 omeprazole 20 mg Capsule,Delayed Release(Dr/Ec) 20 mg PO DAILY RF: 0 budesonide-formoterol [Symbicort] 80-4.5 mcg/actuation Hfa Aerosol Inhaler 2 puff INHALATION BID RF: 0 atorvastatin 40 mg Tablet 40 mg PO DAILY RF: 0 cetirizine 10 mg Tablet 10 mg PO DAILY RF: 0 gabapentin 300 mg Capsule 300 mg PO DAILY RF: 0 albuterol sulfate [Proventil HFA] 90 mcg/actuation Hfa Aerosol Inhaler 2 puff INHALATION Q4-6H PRN (Reason: asthma) RF: 0 metoprolol tartrate 12.5 mg PO BID RF: 0 metformin 500 mg Tablet 500 mg PO BID RF: 0 Discharge Instructions Patient Printed Instructions: Chest Pain (ED) Status ED Status: With Doctor
[2018-10-22 05:20] LABS: Troponin I 0.04 ng/mL (0.02-0.05)
[2018-10-22 08:12] LABS: Troponin I 0.04 ng/mL (0.02-0.05)
[2018-10-22 08:36] VITALS: TEMP 98.6
--- NOTE | 2018-10-22 10:24 | P.HPCA ---
History of Present Illness Primary Care Physician: Everton Tello MD Chief Complaint: Chest pain History of Present Illness: This is a 53-year-old male with history of CAD states that he had a CABG 5 years ago and stent April 2018 that presents to ED with minor chest discomfort. He has had 2 days essentially of a sharp and dull discomfort in the center of his chest. The more intense levels will last 5-7 minutes but he has a underlying discomfort that has been constantly there. He has found that it hurts to stand and aggravation seem to worsen it as well. Does not feel similar to when needing stenting. Has some shortness of breath. Denies nausea or vomiting. States he was at [facility] about a week ago for similar symptoms and was discharged, he thinks he had a stress test but is not sure. His last stress test on file was this facility July 27, 2018 was nonischemic. States his discomfort is there at this time as a 1-2 out of 10. States he has heart disease with bypass 5 years ago. States he had a stent and upon reviewing records he had stent applied by Dr. gannon in April. Last stress test was nonischemic July this year. 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 States he does not smoke. There is family history of CAD. - Diagnosis (1) Chest pain (2) Coronary artery disease (3) Status post coronary artery bypass graft (4) History of heart artery stent (5) Hyperlipidemia (6) Hypertension Review of Systems General: Patient denies fevers, chills, and recent travel. HEENT: Patient denies headache, sore throat, difficulty swallowing. Cardiovascular: Has the chest discomfort as mentioned above. Denies sensation of heart beating rapidly or irregularly. No syncope. Denies diaphoresis. Respiratory: He was short of breath. Denies inspirational chest discomfort. Denies coughing wheezing or hemoptysis. GI: Patient denies nausea, vomiting, diarrhea, abdominal pain, bloody stools. Musculoskeletal: Patient denies joint pain or edema. Denies calf pain or edema. Neurovascular: Patient denies numbness, tingling, weakness in extremities. Denies headache. Endocrine: Denies polyuria and polydipsia. Hematologic: Denies easy bruising. Skin: Denies rash or itching. PMFSH - History History Provided By: Patient - Medical History Medical History: Medical History (Last Reviewed 10/22/18 @ 02:16 by Grazyna Weber) Hyperlipidemia (Acute) Pericarditis (Acute) UTI (urinary tract infection) (Acute) BPH (benign prostatic hyperplasia) (Acute) GERD (gastroesophageal reflux disease) (Acute) Myocardial infarction (Acute) Coronary artery disease (Acute) Asthma (Chronic) Diabetes (Chronic) - Surgical History Surgical History: Surgical History (Last Reviewed 10/22/18 @ 02:16 by Grazyna Weber) History of heart bypass surgery (Chronic) History of mandibular surgery (Acute) History of cholecystectomy (Acute) History of heart artery stent (Acute) - Family History Family History: Family History (Last Updated 07/26/18 @ 18:13 by JADEN Harrington) Mother Family history of acute myocardial infarction - Tobacco History Second Hand Smoke Exposure: No Tobacco Use In Past 30 Days: No Smoking Status: Never smoker - Alcohol History How Often Do You Have a Drink Containing Alcohol: Never - Substance Use History Substance History: No History of Abuse - Travel History Recent Travel in the [place] Within the Last 8 Weeks: No Recent Travel Out of the Country Within the Last 8 Weeks: No - Immunization History Tetanus Immunization: Unsure Medications and Allergies Active Medications: Active Medications Morphine Sulfate (Morphine Inj) 2 mg IV.PUSH Q4H PRN PRN Reason: PAIN SCALE 8 TO 10 Nitroglycerin (Nitrostat Sl) 0.4 mg SL Q5M PRN PRN Reason: CHEST PAIN Ondansetron HCl (Zofran Inj) 4 mg IV.PUSH Q6H PRN PRN Reason: NAUSEA Sodium Chloride (Ns Flush) 2 ml IV.FLUSH UNSCH PRN PRN Reason: FLUSH AFTER USING IV ACCESS Sodium Chloride (Ns Flush) 2 ml IV.FLUSH BID JC Sodium Chloride (Ns Flush) 2 ml IV.FLUSH PRN PRN PRN Reason: FLUSH AFTER USING IV ACCESS Temazepam (Restoril) 15 mg PO HS PRN PRN Reason: INSOMNIA Allergies Allergy/AdvReac Type Severity Reaction Status Date / Time No Known Allergies Allergy Verified 10/22/18 01:25 Home Medications Medication Instructions Recorded Confirmed Type albuterol sulfate [Proventil HFA] 2 puff INHALATION Q4-6H PRN 06/19/18 10/22/18 History aspirin [Aspir-81] 81 mg PO DAILY 06/19/18 10/22/18 History atorvastatin 40 mg PO DAILY 06/19/18 10/22/18 History budesonide-formoterol [Symbicort] 2 puff INHALATION BID 06/19/18 10/22/18 History cetirizine 10 mg PO DAILY 06/19/18 10/22/18 History clopidogrel 75 mg PO DAILY 06/19/18 10/22/18 History gabapentin 300 mg PO DAILY 06/19/18 10/22/18 History insulin glargine [Lantus U-100 30 unit SUB-Q DAILY 06/19/18 10/22/18 History Insulin] metoprolol tartrate 12.5 mg PO BID 06/19/18 10/22/18 History omeprazole 20 mg PO DAILY 06/19/18 10/22/18 History tamsulosin 0.4 mg PO DAILY 06/19/18 10/22/18 History metformin 500 mg PO BID 07/26/18 10/22/18 History Exam Vital signs: Vital Signs 10/22/18 01:23 10/22/18 01:43 10/22/18 03:01 Temperature 98.7 F Pulse Rate 76 72 88 Respiratory Rate 18 16 16 Blood Pressure 128/79 133/77 Pulse Oximetry 98 100 100 10/22/18 04:00 10/22/18 06:56 10/22/18 08:00 Temperature 97.3 F L 98.6 F Pulse Rate 66 61 68 Respiratory Rate 16 16 Blood Pressure 169/86 H 156/87 H Pulse Oximetry 100 100 Intake & Output 10/21/18 10/22/18 10/22/18 18:59 06:59 18:59 Other: # Voids 0 Date of Last Bowel Movement 10/21/18 Narrative: GENERAL: This is a well-nourished, well-developed patient, in no apparent distress. Patient speaks in clear complete sentences. Patient is pleasant. HEENT: Head is atraumatic and normocephalic. Neck is supple without lymphadenopathy and trachea is midline. No JVD or carotid bruits. CARDIOVASCULAR: Regular rate and rhythm without murmurs, gallops, or rubs. RESPIRATORY: Clear to auscultation. Breath sounds equal bilaterally. No wheezes , rales, or rhonchi. Chest wall is nontender. No use of accessory muscles. GASTROINTESTINAL: Abdomen is nontender, nondistended. Abdomen soft. No obvious pulsatile mass or bruit. No CVA tenderness. Strong femoral pulses bilaterally. Normal bowel sounds in all quadrants. MUSCULOSKELETAL: Patient is moving upper and lower extremities freely. No calf tenderness or edema, no Homans sign. Strong pulses in upper and lower extremities. NEUROLOGICAL: Patient is alert and oriented. Cranial nerves 2-12 are grossly intact. No focal deficits and speech is clear. SKIN: No rash and turgor is normal. Results 10/22/18 01:30 10/22/18 01:30 Cardiac Enzymes 10/22/18 10/22/18 10/22/18 Range/Units 01:30 04:35 07:30 AST 19 (15-37) U/L Troponin I 0.04 0.04 0.04 (0.02-0.05) ng/mL CBC 10/22/18 Range/Units 01:30 WBC 4.0 (4.0-11.0) th/mm3 RBC 5.24 (4.50-5.90) mil/mm3 Hgb 12.5 L (13.0-17.0) gm/dL Hct 38.3 L (39.0-51.0) % Plt Count 176 (150-450) th/mm3 Neut # (Auto) 1.9 (1.8-7.7) th/mm3 Lymph # (Auto) 1.4 (1.0-4.8) th/mm3 [place] # (Auto) 0.4 (0.0-0.9) th/mm3 Eos # (Auto) 0.2 (0.0-0.4) th/mm3 Baso # (Auto) 0.0 (0.0-0.2) th/mm3 Comprehensive Metabolic Panel 10/22/18 Range/Units 01:30 Sodium 137 (136-145) meq/L Potassium 4.7 (3.5-5.1) meq/L Chloride 107 (98-107) meq/L Carbon Dioxide 25.7 (21.0-32.0) meq/L BUN 13 (7-18) mg/dL Creatinine 0.92 (0.60-1.30) mg/dL Calcium 7.9 L (8.5-10.1) mg/dL AST 19 (15-37) U/L ALT 18 (12-78) U/L Alkaline Phosphatase 101 (45-117) U/L Total Protein 6.8 (6.4-8.2) g/dL Albumin 3.3 L (3.4-5.0) g/dL Intake and Output 10/21/18 10/22/18 10/22/18 22:59 06:59 14:59 Other: # Voids 0 Date of Last Bowel Movement 10/21/18 - Imaging and Cardiology Imaging: Impressions Chest X-Ray 10/22/18 01:26 CONCLUSION: Negative examination. EKG interpretations - EKG EKG shows: sinus rhythm - Blocks, axis, hypertrophy, ST abn AV and intraventricular conduction: right bundle branch block (fixed/ intermittent, complete/incomplete) (EKG is a sinus rhythm with right bundle branch block.) Caprini VTE Risk Assessment Caprini VTE Risk Assessment: No/Low Risk (score <= 1) Caprini Risk Assessment Model: Point Value = 1 Point Value = 2 Point Value = 3 Point Value = 5 Age 41-60 Minor surgery BMI > 25 kg/m2 Swollen legs Varicose veins or History of unexplained or recurrent spontaneous Oral contraceptives or hormone replacement Sepsis (< 1 month) Serious lung disease, including pneumonia (< 1 month) Abnormal pulmonary function Acute myocardial infarction Congestive heart failure (< 1 month) History of inflammatory bowel disease Medical patient at bed rest Age 61-74 Arthroscopic surgery Major open surgery (> 45 min) Laparoscopic surgery (> 45 min) Malignancy Confined to bed (> 72 hours) Immobilizing plaster cast Central venous access Age >= 75 History of VTE Family history of VTE Factor V Leiden Prothrombin [id number] Lupus anticoagulant Anticardiolipin antibodies Elevated serum homocysteine Heparin-induced thrombocytopenia Other congenital or acquired thrombophilia Stroke (< 1 month) Elective arthroplasty Hip, pelvis, or leg fracture Acute spinal cord injury (< 1 month) Prophylaxis Regimen: Total Risk Factor Score Risk Level Prophylaxis Regimen 0-1 Low Early ambulation 2 Moderate Order ONE of the following: *Sequential Compression Device (SCD) *Heparin 5000 units SQ BID 3-4 Higher Order ONE of the following medications: *Heparin 5000 units SQ TID *Enoxaparin/Lovenox 40 mg SQ daily (WT < 150 kg, CrCl > 30 mL/min) *Enoxaparin/Lovenox 30 mg SQ daily (WT < 150 kg, CrCl > 10-29 mL/min) *Enoxaparin/Lovenox 30 mg SQ BID (WT < 150 kg, CrCl > 30 mL/min) AND/OR *Sequential Compression Device (SCD) 5 or more Highest Order ONE of the following medications: *Heparin 5000 units SQ TID (Preferred with Epidurals) *Enoxaparin/Lovenox 40 mg SQ daily (WT < 150 kg, CrCl > 30 mL/min) *Enoxaparin/Lovenox 30 mg SQ daily (WT < 150 kg, CrCl > 10-29 mL/min) *Enoxaparin/Lovenox 30 mg SQ BID (WT < 150 kg, CrCl > 30 mL/min) AND *Sequential Compression Device (SCD) Assessment and Plan - Assessment (1) Chest pain Code(s): R07.9 - Chest pain, unspecified Status: Acute (2) Coronary artery disease Code(s): I25.10 - Atherosclerotic heart disease of craig coronary artery without angina pectoris Status: Acute (3) Status post coronary artery bypass graft Code(s): Z95.1 - Presence of aortocoronary bypass graft Status: Acute (4) History of heart artery stent Code(s): Z95.5 - Presence of coronary angioplasty implant and graft Status: Acute (5) Hyperlipidemia Code(s): E78.5 - Hyperlipidemia, unspecified Status: Chronic (6) Hypertension Code(s): I10 - Essential (primary) hypertension Status: Chronic - Plan * Chest pain: Patient has had serial cardiac enzymes and EKGs for ruling out purposes. He has been seen by Dr. Darrick Avalos of cardiology and the chest pain center. He will undergo a Lexiscan and be discharged home if the stress test is nonischemic with instructions to follow-up with PCP and boilermaker assembly and erection. * History of CAD: Patient states he has had bypass and has had a stent placed April of this year. This will be reassessed with stress testing. 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 * Hypertension: Continue medication. * Hyperlipidemia: Continue medication. Patient is stable at this time. He is agreeable to this plan. H&P: Quality - VTE Deep Vein Thrombosis/Pulmonary Embolism Present on Admission: No (5) Hyperlipidemia Qualifiers: (6) Hypertension Qualifiers:
--- NOTE | 2018-10-22 12:01 | NM ---
EXAM DATE: 10/22/2018 11:55 AM EST AGE/SEX: 53 years / Male INDICATIONS:Angina. Coronary artery disease Chest pain. CLINICAL DATA: This is the patient's initial encounter. Patient reports that signs and symptoms have been present for 1 day and indicates a pain score of 2/10. MEDICAL/SURGICAL HISTORY: Asthma. Diabetes mellitus type II. Cholecystectomy. Coronary artery stent. CABG. COMPARISON: [facility] – [place], [place] MYOCARDIAL PERF PHARM SPECT W/EF, 07/27/2018. . DOSE: 8.3 mCi Tc 99m Myoview at rest 26.2 mCi [id number] at stress 0.4 mg Lexiscan STRESS SYMPTOMS: Shortness of breath. EJECTION FRACTION: 69 % TECHNIQUE: The patient underwent pharmacologic stress with infusion of prescribed dose. Continuous ECG tracing was monitored during stress. Gated SPECT imaging was performed after stress and conventi onal SPECT imaging was performed at rest. The examination was performed on a SPECT/CT scanner, both attenuation and non-corrected datasets were reviewed. FINDINGS: Distribution: The maximum perfused segment at stress is in septum. Perfusion Study: The pattern of perfusion at stress is within normal limits. Gated Study: There are intact wall motion and wall thickening without hypokinetic or dyskinetic segm ents. The ejection fraction is calculated at 69%. RISK CATEGORY: Low (<1% Annual Motality Rate) CONCLUSION: 1. Negative for stress-induced ischemia Electronically signed by: Abilio Puri MD 10/22/2018 12:00 PM EST
[2018-10-22] MEDS ORDERED: Gabapentin 300 MG Capsule PO SCH (12:30)
[2018-10-22] MEDS ORDERED: Pantoprazole Sodium 20 MG DR Tablet PO SCH (12:30)
[2018-10-22] MEDS ORDERED: Metoprolol Tartrate 25 MG Tablet PO SCH (12:30)
[2018-10-22 12:36] VITALS: BP 153/87; PULSE 75
[2018-10-22] MEDS ORDERED: Regadenoson Inj 0.4 MG/5 ML Syringe IV.PUSH ONE (14:34)
--- NOTE | 2018-10-22 14:42 | ECG ---
Date Performed: 10/22/2018 Time Performed: 04:40:36 PTAGE: 53 years EKG: Sinus rhythm RIGHT BUNDLE BRANCH BLOCK ABNORMAL ECG PREVIOUS TRACING : 10/22/2018 01.34 Since previous tracing, no significant change noted DOCTOR: Darrick Avalos Interpretating Date/Time 10/22/2018 14:40:23
--- NOTE | 2018-10-22 14:43 | ECG ---
Date Performed: 10/22/2018 Time Performed: 01:34:55 PTAGE: 53 years EKG: Sinus rhythm RIGHT BUNDLE BRANCH BLOCK ABNORMAL ECG PREVIOUS TRACING : 07/30/2018 16.32 Since previous tracing, no significant change noted DOCTOR: Darrick Avalos Interpretating Date/Time 10/22/2018 14:41:41
--- NOTE | 2018-10-22 14:49 | TR ---
Date Performed: 10/22/2018 Time Performed: 11:01:23 DOCTOR: Darrick Avalos DRUG LIST: CLINICAL HISTORY: REASON FOR TEST: REASON FOR ENDING: OBSERVATION: CONCLUSION: COMMENTS: Lexiscan stress test was performed under standard four minute protocol. Radionuclide was injected one minute prior to ending the test. No electrocardiographic abormalities were present t o suggest ischemia. Nuclear imaging and interpretation are pending.
== END 2018-10-22 14:35 | disposition home or self-care (01) ==
LOC: NEDA 01:19 → NEPE 01:19 → NEPHCDU 03:36
PROVIDERS: ADMIT Internal Medicine Interventional Cardiology; ATTEND Internal Medicine Interventional Cardiology
DX: Z79.51 Long term (current) use of inhaled steroids; E11.9 Type 2 diabetes mellitus without complications; N40.0 Benign prostatic hyperplasia without lower urinary tract symptoms; E78.5 Hyperlipidemia, unspecified; Z90.49 Acquired absence of other specified parts of digestive tract; I25.10 Atherosclerotic heart disease of native coronary artery without angina pectoris; J45.909 Unspecified asthma, uncomplicated; Z82.49 Family history of ischemic heart disease and other diseases of the circulatory system; Z79.84 Long term (current) use of oral hypoglycemic drugs; Z79.02 Long term (current) use of antithrombotics/antiplatelets; Z95.5 Presence of coronary angioplasty implant and graft; I25.2 Old myocardial infarction; I10 Essential (primary) hypertension; K21.9 Gastro-esophageal reflux disease without esophagitis; Z95.1 Presence of aortocoronary bypass graft; R07.9 Chest pain, unspecified